=== PATIENT | male | born 1960 | race Native Hawaiian/Other Pacific Islander ===

== ENCOUNTER 2018-12-23 15:07 | Inpatient (IN) | payer MEDICARE, OTHER ==
--- NOTE | 2018-12-23 16:18 | ED ---
General Adult HPI - General Chief complaint: Dizziness Stated complaint: cirrhosis of the liver Time Seen by Provider: 12/23/18 15:54 Source: patient Mode of arrival: ambulatory Limitations: no limitations - History of Present Illness Initial comments: Dictation was produced using [employer] dictation software. please excuse any grammatical, word or spelling errors. Chief Complaint: 58-year-old male past medical history of cirrhotic liver presents with instruction from piece. [facility] emergency department for paracentesis History of Present Illness: Patient is a 58-year-old male. He went to his primary care physician's office today because he needed a referral to get into [facility] due to chronic debility. Patient has a history of cirrhosis. Patient has history of paracentesis in the past. He states one month ago he had got in paracentesis with removal of approximately 2 bottles of fluid. Patient states he is only gotten paracentesis once in the past. Patient also has a history of low hemoglobin. Over the past 2-3 days patient has been having dizziness and exertional dyspnea. Patient states he's having difficulty taking a deep breath secondary to his abdomen. Denies any constitutional symptoms. The ROS documented in this emergency department record has been reviewed and confirmed by me. Those systems with pertinent positive or negative responses have been documented in the HPI. All other systems are other negative and/or noncontributory. PHYSICAL EXAM: General Impression: Alert and oriented x3, not in acute distress HEENT: Normocephalic atraumatic, extra-ocular movements intact, pupils equal and reactive to light bilaterally, mucous membranes moist, poor dentition Cardiovascular: Heart regular rate and rhythm, S1&S2 audible, no murmurs, rubs or gallops Chest: Lungs clear to auscultation bilaterally, no rhonchi, no wheeze, no rales Abdomen: Distended abdomen, positive fluid wave, nontender Musculoskeletal: Pulses present and equal in all extremities, no peripheral edema Motor: no focal deficits noted Neurological: CN II-XII grossly intact, no focal motor or sensory deficits noted Skin: Intact with no visualized rashes Psych: Normal affect and mood ED course: 58-year-old male presents with ankle presentation consistent with abdominal ascites vital signs upon arrival are within acceptable limits.Laboratory evaluation obtained. CBC is grossly unremarkable. Values are expected in a cirrhotic patient. Coag panel is unremarkable. Metabolic panel is unremarkable. Chest x-ray obtained showing no acute processes. Patient's symptoms likely secondary to abdominal pressure from the ascitic fluid. Patient be admitted for paracentesis. Interventional radiology is consulted. Discussed patient case with Dr. Galindo who will be accepting the patient. - Related Data Home Medications Medication Instructions Recorded Confirmed Furosemide [Lasix] 40 mg PO BID 12/23/18 12/23/18 Pantoprazole Sodium [Protonix] 40 mg PO BID 12/23/18 12/23/18 Spironolactone [Aldactone] 100 mg PO DAILY 12/23/18 12/23/18 Thiamine HCl [Vitamin B-1] 100 mg PO DAILY 12/23/18 12/23/18 Allergies Allergy/AdvReac Type Severity Reaction Status Date / Time No Known Allergies Allergy Verified 12/23/18 16:09 Review of Systems ROS Statement: Those systems with pertinent positive or pertinent negative responses have been documented in the HPI. ROS Other: All systems not noted in ROS Statement are negative. Past Medical History Past Medical History: Hyperlipidemia, Hypertension Additional Past Medical History / Comment(s): cirrhosis History of Any Multi-Drug Resistant Organisms: None Reported Past Surgical History: No Surgical Hx Reported Past Psychological History: Anxiety, Bipolar, Depression, Schizophrenia Smoking Status: Current every day smoker Past Alcohol Use History: Rare Past Drug Use History: None Reported General Exam Limitations: no limitations Course Vital Signs 12/23/18 12/23/18 12/23/18 15:23 16: 16:30 Temperature 98.3 F Pulse Rate 95 122 H 95 Respiratory 22 22 18 Rate Blood Pressure 147/77 162/98 O2 Sat by Pulse 100 96 97 Oximetry Medical Decision Making - Lab Data Result diagrams: 12/23/18 16:33 12/23/18 16:33 Lab Results 12/23/18 12/23/18 12/23/18 Range/Units 16:33 16:33 16:33 WBC 3.2 L (3.8-10.6) k/uL RBC 4.66 (4.30-5.90) m/uL Hgb 11.3 L (13.0-17.5) gm/dL Hct 37.4 L (39.0-53.0) % MCV 80.1 (80.0-100.0) fL MCH 24.2 L (25.0-35.0) pg MCHC 30.2 L (31.0-37.0) g/dL RDW 17.3 H (11.5-15.5) % Plt Count 96 L (150-450) k/uL Neutrophils % 56 % Lymphocytes % 29 % Monocytes % 8 % Eosinophils % 2 % Basophils % 1 % Neutrophils # 1.8 (1.3-7.7) k/uL Lymphocytes # 0.9 L (1.0-4.8) k/uL Monocytes # 0.3 (0-1.0) k/uL Eosinophils # 0.1 (0-0.7) k/uL Basophils # 0.0 (0-0.2) k/uL Hypochromasia Marked Poikilocytosis Slight Anisocytosis Slight Microcytosis Slight PT 13.5 H (9.0-12.0) sec INR 1.3 H (<1.2) APTT 28.2 (22.0-30.0) sec Sodium 137 (137-145) mmol/L Potassium 3.6 (3.5-5.1) mmol/L Chloride 103 (98-107) mmol/L Carbon Dioxide 23 (22-30) mmol/L Anion Gap 11 mmol/L BUN 22 H (9-20) mg/dL Creatinine 0.80 (0.66-1.25) mg/dL Est GFR (CKD-EPI)AfAm >90 (>60 ml/min/1.73 sqM) Est GFR (CKD-EPI)NonAf >90 (>60 ml/min/1.73 sqM) Glucose 108 H (74-99) mg/dL Calcium 9.1 (8.4-10.2) mg/dL Total Bilirubin 2.4 H (0.2-1.3) mg/dL AST 56 (17-59) U/L ALT 43 (21-72) U/L Alkaline Phosphatase 137 H (38-126) U/L Troponin I (0.000-0.034) ng/mL NT-Pro-B Natriuret Pep pg/mL Total Protein 8.7 H (6.3-8.2) g/dL Albumin 3.8 (3.5-5.0) g/dL 12/23/18 12/23/18 Range/Units 16:33 16:33 WBC (3.8-10.6) k/uL RBC (4.30-5.90) m/uL Hgb (13.0-17.5) gm/dL Hct (39.0-53.0) % MCV (80.0-100.0) fL MCH (25.0-35.0) pg MCHC (31.0-37.0) g/dL RDW (11.5-15.5) % Plt Count (150-450) k/uL Neutrophils % % Lymphocytes % % Monocytes % % Eosinophils % % Basophils % % Neutrophils # (1.3-7.7) k/uL Lymphocytes # (1.0-4.8) k/uL Monocytes # (0-1.0) k/uL Eosinophils # (0-0.7) k/uL Basophils # (0-0.2) k/uL Hypochromasia Poikilocytosis Anisocytosis Microcytosis PT (9.0-12.0) sec INR (<1.2) APTT (22.0-30.0) sec Sodium (137-145) mmol/L Potassium (3.5-5.1) mmol/L Chloride (98-107) mmol/L Carbon Dioxide (22-30) mmol/L Anion Gap mmol/L BUN (9-20) mg/dL Creatinine (0.66-1.25) mg/dL Est GFR (CKD-EPI)AfAm (>60 ml/min/1.73 sqM) Est GFR (CKD-EPI)NonAf (>60 ml/min/1.73 sqM) Glucose (74-99) mg/dL Calcium (8.4-10.2) mg/dL Total Bilirubin (0.2-1.3) mg/dL AST (17-59) U/L ALT (21-72) U/L Alkaline Phosphatase (38-126) U/L Troponin I <0.012 (0.000-0.034) ng/mL NT-Pro-B Natriuret Pep 85 pg/mL Total Protein (6.3-8.2) g/dL Albumin (3.5-5.0) g/dL Disposition Clinical Impression: Ascites Disposition: ADMITTED IP TO THIS [facility] Condition: Fair Referrals: Jay Winn DO [Primary Care Provider] - 1-2 days Decision Time: 17:46
[2018-12-23 16:45] LABS: Anisocytosis Slight; Basophils % (A) 1 %; Eosinophils # (A) 0.1 k/uL (0-0.7); Eosinophils % (A) 2 %; HCT 37.4 % (39.0-53.0); HGB 11.3 gm/dL (13.0-17.5); Hypochromasia Marked; Lymphocytes # (A) 0.9 k/uL (1.0-4.8); Lymphocytes % (A) 29 %; MCH 24.2 pg (25.0-35.0); MCHC 30.2 g/dL (31.0-37.0); MCV 80.1 fL (80.0-100.0); Mean Platelet Volume 7.4; Microcytosis Slight; Monocytes # (A) 0.3 k/uL (0-1.0); Monocytes % (A) 8 %; Neutrophils # (A) 1.8 k/uL (1.3-7.7); Neutrophils % (A) 56 %; Poikilocytosis Slight; RBC 4.66 m/uL (4.30-5.90); RDW 17.3 % (11.5-15.5); WBC 3.2 k/uL (3.8-10.6)
[2018-12-23 16:47] LABS: Platelet Count 96 k/uL (150-450)
[2018-12-23 16:54] LABS: ALT 43 U/L (21-72); AST 56 U/L (17-59); Albumin 3.8 g/dL (3.5-5.0); Alkaline Phosphatase 137 U/L (38-126); Anion Gap 11 mmol/L; Blood Urea Nitrogen 22 mg/dL (9-20); Calcium 9.1 mg/dL (8.4-10.2); Carbon Dioxide 23 mmol/L (22-30); Chloride 103 mmol/L (98-107); Glucose 108 mg/dL (74-99); Potassium 3.6 mmol/L (3.5-5.1); Sodium 137 mmol/L (137-145); Total Bilirubin 2.4 mg/dL (0.2-1.3); Total Protein 8.7 g/dL (6.3-8.2)
[2018-12-23 17:01] LABS: INR 1.3 (<1.2); Partial Thromboplastin Time 28.2 sec (22.0-30.0); Prothrombin Time 13.5 sec (9.0-12.0)
--- NOTE | 2018-12-23 17:14 | XR ---
EXAMINATION TYPE: XR chest 2V DATE OF EXAM: 12/23/2018 COMPARISON: NONE HISTORY: Difficulty breathing TECHNIQUE: Frontal and lateral views of the chest are obtained. FINDINGS: Heart and mediastinum are normal. There is a small linear area of density at the right frieda g base. The other lung posadas are clear. There are chest leads. There is some apparent contrast in th e bowel in the upper abdomen. IMPRESSION: Normal heart. Small area of subsegmental atelectasis or scarring at the right lung base.
[2018-12-23] MEDS ORDERED: ACETAMINOPHEN TAB 325 MG TAB PO PRN (17:47)
[2018-12-23] MEDS ORDERED: NALOXONE 0.4 MG/ML 1 ML VIAL IV PRN (17:47)
[2018-12-23] MEDS ORDERED: traMADol 50 MG TAB PO PRN (18:21)
[2018-12-23] MEDS ORDERED: IPRATROPIUM-ALBUTEROL 3 ML NEB INHALATION PRN (18:24)
--- NOTE | 2018-12-23 18:27 | P.HPIM ---
History of Present Illness 58-year-old pleasant gentleman with known history of cirrhosis which was diagnosed a couple months ago came in with ascites and the abdominal discomfort from that decision denied any significant tenderness denied any fever chills pat ient does not appear to have any spontaneous bacterial peritonitis. Patient although is comparing of chills as been having some dizziness and some shortness of breath because of her abdominal distention patient has significantly distended abdomen which need therapeutic paracentesis. Patient will be admitted will be started on Lasix and the interventional radiology will be consulted for a therapeutic paracentesis. Patient used to smoke quite a bit does appear to have COPD minimal wheezing on exam patient has quit smoking as well lately occasionally takes 3 puffs and a cigarette and stops after that. Although used to smoke half a pack a day in the past Review of Systems REVIEW OF SYSTEMS: CONSTITUTIONAL: No fever, no malaise, no fatigue. HEENT: No recent visual problems or hearing problems. Denied any sore throat. CARDIOVASCULAR: No chest pain, orthopnea, PND, no palpitations, no syncope. PULMONARY: , no hemoptysis. GASTROINTESTINAL: No diarrhea, no nausea, no vomiting. NEUROLOGICAL: No headaches, no weakness, no numbness. HEMATOLOGICAL: Denies any bleeding or petechiae. GENITOURINARY: Denies any burning micturition, frequency, or urgency. MUSCULOSKELETAL/RHEUMATOLOGICAL: Denies any joint pain, swelling, or any muscle pain. ENDOCRINE: Denies any polyuria or polydipsia. The rest of the 14-point review of systems is negative. Past Medical History Past Medical History: Hyperlipidemia, Hypertension Additional Past Medical History / Comment(s): cirrhosis History of Any Multi-Drug Resistant Organisms: None Reported Past Surgical History: No Surgical Hx Reported Past Psychological History: Anxiety, Bipolar, Depression, Schizophrenia Smoking Status: Current every day smoker Past Alcohol Use History: Rare Past Drug Use History: None Reported Medications and Allergies Home Medications Medication Instructions Recorded Confirmed Type Furosemide [Lasix] 40 mg PO BID 12/23/18 12/23/18 History Pantoprazole Sodium [Protonix] 40 mg PO BID 12/23/18 12/23/18 History Spironolactone [Aldactone] 100 mg PO DAILY 12/23/18 12/23/18 History Thiamine HCl [Vitamin B-1] 100 mg PO DAILY 12/23/18 12/23/18 History Allergies Allergy/AdvReac Type Severity Reaction Status Date / Time No Known Allergies Allergy Verified 12/23/18 16:09 Physical Exam Vitals: Vital Signs Temp Pulse Resp BP Pulse Ox 12/23/18 18:00 98 16 160/97 98 12/23/18 17:00 99 16 151/99 99 12/23/18 16:30 95 18 162/98 97 12/23/18 16:19 122 H 22 96 12/23/18 15:23 98.3 F 95 22 147/77 100 Intake and Output 12/23/18 12/23/18 12/23/18 06:59 14:59 22:59 Other: Weight 86.183 kg PHYSICAL EXAMINATION: GENERAL: The patient is alert and oriented x3, not in any acute distress. HEENT: Pupils are round and equally reacting to light. EOMI. No scleral icterus. No conjunctival pallor. Normocephalic, atraumatic. No pharyngeal erythema. No thyromegaly. CARDIOVASCULAR: S1 and S2 present. No murmurs, rubs, or gallops. PULMONARY: Chest is clear to auscultation, no wheezing or crackles. ABDOMEN: Patient does have peripheral signs of cirrhosis no significant tenderness at abdomen is distended with the shifting dullness and fluid thrill MUSCULOSKELETAL: No joint swelling or deformity. EXTREMITIES: No cyanosis, clubbing, or pedal edema. NEUROLOGICAL: Gross neurological examination did not reveal any focal deficits. SKIN: No rashes. Results CBC & Chem 7: 12/23/18 16:33 12/23/18 16:33 Labs: Abnormal Lab Results - Last 24 Hours (Table) 12/23/18 12/23/18 12/23/18 Range/Units 16:33 16:33 16:33 WBC 3.2 L (3.8-10.6) k/uL Hgb 11.3 L (13.0-17.5) gm/dL Hct 37.4 L (39.0-53.0) % MCH 24.2 L (25.0-35.0) pg MCHC 30.2 L (31.0-37.0) g/dL RDW 17.3 H (11.5-15.5) % Plt Count 96 L (150-450) k/uL Lymphocytes # 0.9 L (1.0-4.8) k/uL PT 13.5 H (9.0-12.0) sec INR 1.3 H (<1.2) BUN 22 H (9-20) mg/dL Glucose 108 H (74-99) mg/dL Total Bilirubin 2.4 H (0.2-1.3) mg/dL Alkaline Phosphatase 137 H (38-126) U/L Total Protein 8.7 H (6.3-8.2) g/dL Assessment and Plan Plan: -Alcoholic Cirrhosis mild shortness of breath secondary to ascites: Patient will undergo ultrasound-guided paracentesis will obtain paracentesis labs to rule out spontaneous bacterial peritonitis although clinically does not appear to have any SBP at this time -Mild COPD with mildly exacerbation patient was started on relational treatments are do not believe patient will need any systemic steroids and nasal steroids at this time -Hyperlipidemia -Bipolar disorder -Depression -Nicotine abuse: Counseling was provided -DVT prophylaxis as subcutaneous heparin patient's INR is 1.3
[2018-12-23 19:34] VITALS: BMI 29.7
[2018-12-23] MEDS: FUROSEMIDE 10 MG/ML 4 ML VIAL IV SCH (21:29)
[2018-12-23] MEDS: HEPARIN SODIUM,PORCINE 5,000 UNIT/ML 1 ML VIAL SQ SCH (21:29)
[2018-12-24 08:16] LABS: Anisocytosis Slight; Hypochromasia Marked; MCH 24.5 pg (25.0-35.0); MCHC 30.7 g/dL (31.0-37.0); MCV 79.9 fL (80.0-100.0); Mean Platelet Volume 7.5; Microcytosis Slight; Poikilocytosis Slight; RBC 3.88 m/uL (4.30-5.90); WBC 2.7 k/uL (3.8-10.6)
[2018-12-24 08:25] LABS: Platelet Count 78 k/uL (150-450)
[2018-12-24 08:27] LABS: HGB 9.5 gm/dL (13.0-17.5)
[2018-12-24 08:34] LABS: ALT 34 U/L (21-72); AST 44 U/L (17-59); Albumin 2.7 g/dL (3.5-5.0); Alkaline Phosphatase 94 U/L (38-126); Anion Gap 5 mmol/L; Blood Urea Nitrogen 23 mg/dL (9-20); Calcium 8.2 mg/dL (8.4-10.2); Carbon Dioxide 28 mmol/L (22-30); Chloride 104 mmol/L (98-107); Glucose 98 mg/dL (74-99); Potassium 3.8 mmol/L (3.5-5.1); Sodium 137 mmol/L (137-145); Total Bilirubin 2.3 mg/dL (0.2-1.3); Total Protein 6.7 g/dL (6.3-8.2)
[2018-12-24] MEDS ORDERED: PANTOPRAZOLE 40 MG/10 ML VIAL IV SCH (09:00)
[2018-12-24] MEDS ORDERED: THIAMINE 100 MG TAB PO SCH (09:00)
[2018-12-24] MEDS: HEPARIN SODIUM,PORCINE 5,000 UNIT/ML 1 ML VIAL SQ SCH (09:24)
--- NOTE | 2018-12-24 09:26 | US ---
EXAMINATION TYPE: US abdomen limited DATE OF EXAM: 12/24/2018 COMPARISON: NONE CLINICAL HISTORY: Assess for fluid pocket please. Alcoholic cirrhosis per patient Ascites is seen in all four abdominal quadrants with largest measured pocket in LLQ = 11.9cm A/P. There is a cirrhotic morphology of the liver. IMPRESSION: Moderate abdominal ascites and cirrhotic morphology of liver.
[2018-12-24] MEDS: FUROSEMIDE 10 MG/ML 4 ML VIAL IV SCH (12:12)
[2018-12-24] MEDS: SPIRONOLACTONE 25 MG TAB PO SCH ×2 (12:12→12:21)
[2018-12-24 12:24] VITALS: BP 133/77; TEMP 98
[2018-12-24 14:21] VITALS: PULSE 84; RESP 18
--- NOTE | 2018-12-24 14:37 | P.PN ---
Subjective Patient is admitted with cirrhosis and significant ascites causing shortness of breath patient had removal of about 9 L of ascitic fluid. Patient is quite weak little "evaluated the patient. Patient presently is homeless her sister has to be in the hospital because of her sick . Social work and family service caseworker will work on his disposition her is medically patient is stable enough to be discharged. Patient will be switched to oral Lasix. We will monitor him while he is here. Patient doesn't appear to have spontaneous bacterial peritonitis clinically will await therapeutic toenail fluid labs. Constitutional: Denied any fatigue denied any fever. Cardio vascular: denied any chest pain, palpitations Gastrointestinal denied any nausea vomiting Pulmonary: Denied any shortness of breath cough Neurologic denied any new focal deficits All inpatient medications were reviewed and appropriate changes in these medications as dictated in the interval history and assessment and plan. Objective - Vital Signs Vital signs: Vital Signs Temp 98 F 12/24/18 12:24 Pulse 84 12/24/18 14:09 Resp 18 12/24/18 14:09 BP 133/77 12/24/18 12:24 Pulse Ox 97 12/24/18 12:24 Intake & Output 12/23/18 12/24/18 12/24/18 18:59 06:59 18:59 Intake Total 250 500 Balance 250 500 Weight 86.183 kg 79.5 kg Intake: Oral 250 500 Other: Voiding Method Toilet Toilet # Voids 1 3 - Exam PHYSICAL EXAMINATION: GENERAL: The patient is alert and oriented x3, not in any acute distress. HEENT: Pupils are round and equally reacting to light. EOMI. No scleral icterus. No conjunctival pallor. Normocephalic, atraumatic. No pharyngeal erythema. No thyromegaly. CARDIOVASCULAR: S1 and S2 present. No murmurs, rubs, or gallops. PULMONARY: Chest is clear to auscultation, no wheezing or crackles. ABDOMEN: Patient does have peripheral signs of cirrhosis no significant tenderness at abdomen is distended improved, shifting dullness not appreciable MUSCULOSKELETAL: No joint swelling or deformity. EXTREMITIES: No cyanosis, clubbing, or pedal edema. NEUROLOGICAL: Gross neurological examination did not reveal any focal deficits. SKIN: No rashes. - Labs CBC & Chem 7: 12/24/18 07:10 12/24/18 07:10 Labs: Abnormal Lab Results - Last 24 Hours (Table) 12/23/18 12/23/18 12/23/18 Range/Units 16:33 16:33 16:33 WBC 3.2 L (3.8-10.6) k/uL RBC (4.30-5.90) m/uL Hgb 11.3 L (13.0-17.5) gm/dL Hct 37.4 L (39.0-53.0) % MCV (80.0-100.0) fL MCH 24.2 L (25.0-35.0) pg MCHC 30.2 L (31.0-37.0) g/dL RDW 17.3 H (11.5-15.5) % Plt Count 96 L (150-450) k/uL Lymphocytes # 0.9 L (1.0-4.8) k/uL PT 13.5 H (9.0-12.0) sec INR 1.3 H (<1.2) BUN 22 H (9-20) mg/dL Glucose 108 H (74-99) mg/dL Calcium (8.4-10.2) mg/dL Total Bilirubin 2.4 H (0.2-1.3) mg/dL Alkaline Phosphatase 137 H (38-126) U/L Total Protein 8.7 H (6.3-8.2) g/dL Albumin (3.5-5.0) g/dL 12/24/18 12/24/18 Range/Units 07:10 07:10 WBC 2.7 L (3.8-10.6) k/uL RBC 3.88 L (4.30-5.90) m/uL Hgb 9.5 L D (13.0-17.5) gm/dL Hct 31.0 L (39.0-53.0) % MCV 79.9 L (80.0-100.0) fL MCH 24.5 L (25.0-35.0) pg MCHC 30.7 L (31.0-37.0) g/dL RDW 17.0 H (11.5-15.5) % Plt Count 78 L (150-450) k/uL Lymphocytes # (1.0-4.8) k/uL PT (9.0-12.0) sec INR (<1.2) BUN 23 H (9-20) mg/dL Glucose (74-99) mg/dL Calcium 8.2 L (8.4-10.2) mg/dL Total Bilirubin 2.3 H (0.2-1.3) mg/dL Alkaline Phosphatase (38-126) U/L Total Protein (6.3-8.2) g/dL Albumin 2.7 L (3.5-5.0) g/dL Assessment and Plan Plan: -Alcoholic Cirrhosis mild shortness of breath secondary to ascites: Patient underwent the line liters fluid removal via ultrasound-guided paracentesis. No evidence of spontaneous bacterial peritonitis at this time -Mild COPD with mildly exacerbation patient was started on relational treatments are do not believe patient will need any systemic steroids and nasal steroids at this time -Hyperlipidemia -Bipolar disorder -Depression -Nicotine abuse: Counseling was provided -DVT prophylaxis as subcutaneous heparin patient's INR is 1.3 -Generalized deconditioning PT and OT evaluation and social work evaluation for above-mentioned reasons
--- NOTE | 2018-12-24 14:59 | US ---
EXAMINATION TYPE: US paracentesis abd w/image DATE OF EXAM: 12/24/2018 COMPARISON: NONE HISTORY: Ascites. PROCEDURE: Maximal barrier technique was utilized. The skin overlying a suitable pocket of fluid was localized with ultrasound and the overlying skin was prepped and draped. Ultrasound was utilized with sterile technique. Lidocaine was used for local anesthesia and a skin kassy made with a scalpel. Catheter was advanced under direct ultrasound guidance into a suitable pocket of fluid and approximately 9.1 liter s of serous fluid were removed. Catheter was withdrawn and hemostasis achieved. There is no immedia te complication; the patient is discharged in stable condition. IMPRESSION: STATUS POST ULTRASOUND GUIDED PARACENTESIS FOR PALLIATION OF ASCITES. THIS PROCEDURE WA S PERFORMED BY THE UNDERSIGNED. Specimen sent for laboratory analysis.
[2018-12-24 17:59] LABS: Appearance,BF Hazy; Color,BF Yellow; Nucleated Cells, Body Fluid 64 /uL; RBC, Body Fluid 208 /uL
[2018-12-24 18:01] LABS: Mononuclear WBC,Body Fluid 93 %; Polynuclear WBC,Body Fluid 7 %; Total Cells Counted,Body Fluid 100
[2018-12-24 20:26] LABS: Total Protein, Body Fluid 1030 mg/dL
[2018-12-25] MEDS ORDERED: FUROSEMIDE 40 MG TAB PO SCH (09:00)
--- NOTE | 2018-12-29 14:25 | P.DS ---
Providers Date of admission: 12/23/18 17:47 Attending physician: Carlotta Galindo Primary care physician: Jay Winn DO Hospital Course: Please refer to my progress note for further details of discharge Patient Condition at Discharge: Fair Plan - Discharge Summary Discharge Rx Participant: Yes New Discharge Prescriptions: New Albuterol Inhaler [Ventolin Hfa Inhaler] 1 - 2 puff INHALATION Q6HR PRN #1 inhaler PRN Reason: Shortness Of Breath Or Wheezing Continue Thiamine HCl [Vitamin B-1] 100 mg PO DAILY Spironolactone [Aldactone] 100 mg PO DAILY Pantoprazole Sodium [Protonix] 40 mg PO BID Furosemide [Lasix] 40 mg PO BID No Action Meclizine [Antivert] 25 mg PO TID PRN #15 tab PRN Reason: Vertigo Discharge Medication List Furosemide [Lasix] 40 mg PO BID 12/23/18 [History] Pantoprazole Sodium [Protonix] 40 mg PO BID 12/23/18 [History] Spironolactone [Aldactone] 100 mg PO DAILY 12/23/18 [History] Thiamine HCl [Vitamin B-1] 100 mg PO DAILY 12/23/18 [History] Albuterol Inhaler [Ventolin Hfa Inhaler] 1 - 2 puff INHALATION Q6HR PRN #1 inhaler 12/24/18 [Rx] Meclizine [Antivert] 25 mg PO TID PRN #15 tab 12/25/18 [Rx] Follow up Appointment(s)/Referral(s): Jay Winn DO [Primary Care Provider] - 3 Days Dany Elizabeth MD [STAFF PHYSICIAN] - 1 Week Discharge Disposition: HOME SELF-CARE
== END 2018-12-24 16:10 | disposition home or self-care (01) | DRG 433 ==
LOC: EC 15:07 → 3NMEDONC 17:47
PROVIDERS: ADMIT Internal Medicine; ATTEND Internal Medicine
PROC: 0W9G3ZZ Drainage of Peritoneal Cavity, Percutaneous Approach (ICD-10-PCS; principal; 2018-12-24)
DX: K70.31 Alcoholic cirrhosis of liver with ascites (principal); D61.818 Other pancytopenia; J44.1 Chronic obstructive pulmonary disease with (acute) exacerbation; E78.5 Hyperlipidemia, unspecified; F17.200 Nicotine dependence, unspecified, uncomplicated; F20.9 Schizophrenia, unspecified; F31.9 Bipolar disorder, unspecified; F41.9 Anxiety disorder, unspecified; I10 Essential (primary) hypertension; Z59.0 Homelessness; Z79.899 Other long term (current) drug therapy; Z71.6 Tobacco abuse counseling
CPT/HCPCS: 36415; 49083; 71046; 76705; 80053; 82945; 83615; 83735; 83880; 84157; 84484; 85025; 85027; 85610; 85730; 87070; 87075; 87205; 88108; 88305; 89050; 93005; 99285

== ENCOUNTER 2018-12-25 09:55 | Emergency (ER) | payer MEDICARE, OTHER ==
[2018-12-25 10:04] VITALS: RESP 16; TEMP 97.2
[2018-12-25 10:18] VITALS: PULSE 86
[2018-12-25] MEDS ORDERED: MECLIZINE 12.5 MG TAB PO STA (10:33)
[2018-12-25] MEDS ORDERED: SODIUM CHLORIDE 0.9% 1,000 ML IV STA (10:33)
[2018-12-25 10:55] LABS: Anisocytosis Slight; Basophils % (A) 1 %; Eosinophils % (A) 2 %; HCT 31.7 % (39.0-53.0); HGB 9.6 gm/dL (13.0-17.5); Hypochromasia Marked; Lymphocytes # (A) 0.6 k/uL (1.0-4.8); Lymphocytes % (A) 24 %; MCH 23.9 pg (25.0-35.0); MCHC 30.2 g/dL (31.0-37.0); MCV 79.3 fL (80.0-100.0); Mean Platelet Volume 8.8; Microcytosis Slight; Monocytes # (A) 0.2 k/uL (0-1.0); Monocytes % (A) 9 %; Neutrophils # (A) 1.4 k/uL (1.3-7.7); Neutrophils % (A) 62 %; Poikilocytosis Slight; RDW 16.9 % (11.5-15.5); WBC 2.3 k/uL (3.8-10.6)
[2018-12-25 11:00] LABS: ALT 38 U/L (21-72); AST 62 U/L (17-59); Alkaline Phosphatase 122 U/L (38-126); Anion Gap 9 mmol/L; Blood Urea Nitrogen 26 mg/dL (9-20); Calcium 8.2 mg/dL (8.4-10.2); Carbon Dioxide 25 mmol/L (22-30); Chloride 102 mmol/L (98-107); Glucose 136 mg/dL (74-99); Sodium 136 mmol/L (137-145); Total Bilirubin 1.7 mg/dL (0.2-1.3); Total Protein 7.4 g/dL (6.3-8.2)
[2018-12-25 11:01] LABS: Potassium 4.4 mmol/L (3.5-5.1)
[2018-12-25 11:12] LABS: Platelet Count 91 k/uL (150-450)
--- NOTE | 2018-12-25 11:20 | ED ---
Dizziness HPI - General Chief Complaint: Dizziness Stated Complaint: Dizzy, nausea Time Seen by Provider: 12/25/18 10:33 Source: patient, EMS, RN notes reviewed Mode of arrival: EMS Limitations: no limitations - History of Present Illness Initial Comments: 58-year-old male presents emergency Department chief complaint of dizziness. Patient states his symptoms started this morning. Patient has a history of this related to his liver cirrhosis. Patient had a recent paracentesis for his ascites. Patient was discharged from the hospital yesterday. Patient reports no chest pain or shortness breath no headache no blurred vision no focal weakness. Patient did have slight nausea but that has resolved. Patient was given Zofran by EMS. Patient denies any focal weakness denies any increase abdominal swelling denies blurred vision. Patient states symptoms are exacerbated by movement better at rest. - Related Data Home Medications Medication Instructions Recorded Confirmed Furosemide [Lasix] 40 mg PO BID 12/23/18 12/23/18 Pantoprazole Sodium [Protonix] 40 mg PO BID 12/23/18 12/23/18 Spironolactone [Aldactone] 100 mg PO DAILY 12/23/18 12/23/18 Thiamine HCl [Vitamin B-1] 100 mg PO DAILY 12/23/18 12/23/18 Previous Rx's Medication Instructions Recorded Albuterol Inhaler [Ventolin Hfa 1 - 2 puff INHALATION Q6HR PRN #1 12/24/18 Inhaler] inhaler Meclizine [Antivert] 25 mg PO TID PRN #15 tab 12/25/18 Allergies Allergy/AdvReac Type Severity Reaction Status Date / Time No Known Allergies Allergy Verified 12/23/18 16:09 Review of Systems ROS Statement: Those systems with pertinent positive or pertinent negative responses have been documented in the HPI. ROS Other: All systems not noted in ROS Statement are negative. Past Medical History Past Medical History: Hyperlipidemia, Hypertension Additional Past Medical History / Comment(s): cirrhosis GI Bleed History of Any Multi-Drug Resistant Organisms: None Reported Past Surgical History: No Surgical Hx Reported Additional Past Surgical History / Comment(s): paracentesis 1 month ago over 2 liters taken off Past Anesthesia/Blood Transfusion Reactions: No Reported Reaction Past Psychological History: Anxiety, Bipolar, Depression, Schizophrenia Smoking Status: Current every day smoker Past Alcohol Use History: Rare Past Drug Use History: None Reported - Past Family History Mother Family Medical History: Congestive Heart Failure (CHF), Myocardial Infarction (PA) Father Family Medical History: Diabetes Mellitus General Exam Limitations: no limitations General appearance: alert, in no apparent distress Head exam: Present: atraumatic, normocephalic, normal inspection Eye exam: Present: normal appearance, PERRL, EOMI. Absent: scleral icterus, conjunctival injection, periorbital swelling ENT exam: Present: normal exam, mucous membranes moist Neck exam: Present: normal inspection. Absent: tenderness, meningismus, lymphadenopathy Respiratory exam: Present: wheezes. Absent: normal lung sounds bilaterally, respiratory distress, rales, rhonchi, stridor Cardiovascular Exam: Present: regular rate, normal rhythm, normal heart sounds. Absent: systolic murmur, diastolic murmur, rubs, gallop, clicks GI/Abdominal exam: Present: soft, normal bowel sounds. Absent: distended, tenderness, guarding, rebound, rigid Neurological exam: Present: alert, oriented X3, CN II-XII intact, reflexes normal, other (Finger to nose intact bilaterally without over shooting). Absent: motor sensory deficit Course Vital Signs 12/25/18 12/25/18 12/25/18 09:56 10:17 11:29 Temperature 97.2 F L Pulse Rate 87 86 86 Respiratory 16 16 Rate Blood Pressure 157/85 145/90 136/86 O2 Sat by Pulse 100 100 100 Oximetry EKG Findings - EKG Comments: EKG Findings:: EKG on a 10:03 normal sinus rhythm with a prolonged QT rate of 88 ND 136 QS 110 QT/QTC 418/505 Medical Decision Making - Medical Decision Making 58-year-old male presented for dizziness. Symptoms are consistent with vertigo. There is no ataxia no focal deficit. Patient's improved after Antivert. Patient's had ongoing issues related to his cirrhosis. Patient will be discharged on Antivert. Return parameters were discussed. - Lab Data Result diagrams: 12/25/18 10:08 12/25/18 10:08 Lab Results 12/25/18 12/25/18 12/25/18 Range/Units 10:08 10:08 10:08 WBC 2.3 L (3.8-10.6) k/uL RBC 4.00 L (4.30-5.90) m/uL Hgb 9.6 L (13.0-17.5) gm/dL Hct 31.7 L (39.0-53.0) % MCV 79.3 L (80.0-100.0) fL MCH 23.9 L (25.0-35.0) pg MCHC 30.2 L (31.0-37.0) g/dL RDW 16.9 H (11.5-15.5) % Plt Count 91 L (150-450) k/uL Neutrophils % 62 % Lymphocytes % 24 % Monocytes % 9 % Eosinophils % 2 % Basophils % 1 % Neutrophils # 1.4 (1.3-7.7) k/uL Lymphocytes # 0.6 L (1.0-4.8) k/uL Monocytes # 0.2 (0-1.0) k/uL Eosinophils # 0.0 (0-0.7) k/uL Basophils # 0.0 (0-0.2) k/uL Hypochromasia Marked Poikilocytosis Slight Anisocytosis Slight Microcytosis Slight Sodium 136 L (137-145) mmol/L Potassium 4.4 (3.5-5.1) mmol/L Chloride 102 (98-107) mmol/L Carbon Dioxide 25 (22-30) mmol/L Anion Gap 9 mmol/L BUN 26 H (9-20) mg/dL Creatinine 0.75 (0.66-1.25) mg/dL Est GFR (CKD-EPI)AfAm >90 (>60 ml/min/1.73 sqM) Est GFR (CKD-EPI)NonAf >90 (>60 ml/min/1.73 sqM) Glucose 136 H (74-99) mg/dL Calcium 8.2 L (8.4-10.2) mg/dL Total Bilirubin 1.7 H (0.2-1.3) mg/dL AST 62 H (17-59) U/L ALT 38 (21-72) U/L Alkaline Phosphatase 122 (38-126) U/L Troponin I <0.012 (0.000-0.034) ng/mL Total Protein 7.4 (6.3-8.2) g/dL Albumin 3.0 L (3.5-5.0) g/dL Disposition Clinical Impression: Vertigo Disposition: HOME SELF-CARE Condition: Stable Instructions (If sedation given, give patient instructions): Dizziness (ED) Additional Instructions: Please return to the Emergency Department if symptoms worsen or any other concerns. Prescriptions: Meclizine [Antivert] 25 mg PO TID PRN #15 tab PRN Reason: Vertigo Is patient prescribed a controlled substance at d/c from ED?: No Referrals: Jay Winn DO [Primary Care Provider] - 1-2 days Time of Disposition: 12:55
--- NOTE | 2018-12-25 11:27 | XR ---
EXAMINATION TYPE: XR chest 2V DATE OF EXAM: 12/25/2018 COMPARISON: Prior chest x-ray 12/23/2018 HISTORY: Cough TECHNIQUE: Frontal and lateral views of the chest are obtained. FINDINGS: There is no focal air space opacity, pleural effusion, or pneumothorax seen. The cardiac silhouette size is within normal limits. Postprocedural changes are noted in the left upper quadrant. There are overlying cardiac leads. Old left clavicular fracture is healed as on prior. Question some prominence of the pulmonary artery, consider pulmonary artery hypertension. The osseous structures are intact. IMPRESSION: No acute cardiopulmonary process. Additional findings above.
[2018-12-25 11:33] VITALS: BP 136/86
== END 2018-12-25 13:09 | disposition home or self-care (01) ==
LOC: EC 09:55
DX: R42 Dizziness and giddiness (principal); E78.5 Hyperlipidemia, unspecified; I10 Essential (primary) hypertension; F31.9 Bipolar disorder, unspecified; F20.9 Schizophrenia, unspecified; F41.9 Anxiety disorder, unspecified; F17.200 Nicotine dependence, unspecified, uncomplicated; Z79.899 Other long term (current) drug therapy
CPT/HCPCS: 36415; 71046; 80053; 84484; 85025; 93005; 96360; 96361; 99284

== ENCOUNTER 2019-01-19 16:26 | Observation (INO) | payer MEDICARE, OTHER ==
[2019-01-19] MEDS ORDERED: MORPHINE SULFATE 4 MG/ML SYRINGE IV STA (16:39)
--- NOTE | 2019-01-19 16:41 | ED ---
Abdominal Pain HPI - General Chief Complaint: Abdominal Pain Stated Complaint: abdominal distension Time Seen by Provider: 01/19/19 16:37 Source: patient, EMS, RN notes reviewed, old records reviewed Mode of arrival: EMS Limitations: no limitations - History of Present Illness Initial Comments: This is a 50-year-old male the ER for evaluation presented today for evaluation of severe abdominal pain or ecchymosis weakness. Not feeling well. Unable to take deep breath secondary abdomen. No fevers. No nausea vomiting or diarrhea. No travel history or sick contacts MD Complaint: abdominal pain -: week(s) Location: diffuse, periumbilical, epigastric Radiation: epigastric Migration to: no migration Severity: moderate Severity scale (1-10): 5 Quality: cramping, stabbing, fullness Consistency: constant Improves With: nothing Worsens With: nothing Associated Symptoms: nausea, constipation - Related Data Home Medications Medication Instructions Recorded Confirmed Albuterol Inhaler [Ventolin Hfa 2 puff INHALATION RT-Q6H PRN 01/19/19 01/19/19 Inhaler] Allergies Allergy/AdvReac Type Severity Reaction Status Date / Time No Known Allergies Allergy Verified 01/19/19 16:40 Review of Systems ROS Statement: Those systems with pertinent positive or pertinent negative responses have been documented in the HPI. ROS Other: All systems not noted in ROS Statement are negative. Past Medical History Past Medical History: Hyperlipidemia, Hypertension Additional Past Medical History / Comment(s): cirrhosis GI Bleed History of Any Multi-Drug Resistant Organisms: None Reported Past Surgical History: No Surgical Hx Reported Additional Past Surgical History / Comment(s): paracentesis 1 month ago over 2 liters taken off Past Anesthesia/Blood Transfusion Reactions: No Reported Reaction Past Psychological History: Anxiety, Bipolar, Depression, Schizophrenia Smoking Status: Current every day smoker Past Alcohol Use History: Rare Past Drug Use History: None Reported - Past Family History Mother Family Medical History: Congestive Heart Failure (CHF), Myocardial Infarction ([place]) Father Family Medical History: Diabetes Mellitus General Exam Limitations: no limitations General appearance: alert, in no apparent distress Head exam: Present: atraumatic, normocephalic, normal inspection Eye exam: Present: normal appearance, PERRL, EOMI. Absent: scleral icterus, conjunctival injection, periorbital swelling ENT exam: Present: normal exam, mucous membranes moist Neck exam: Present: normal inspection. Absent: tenderness, meningismus, lymphadenopathy Respiratory exam: Present: normal lung sounds bilaterally. Absent: respiratory distress, wheezes, rales, rhonchi, stridor Cardiovascular Exam: Present: regular rate, normal rhythm, normal heart sounds. Absent: systolic murmur, diastolic murmur, rubs, gallop, clicks GI/Abdominal exam: Present: distended, tenderness, normal bowel sounds, other (Ascites). Absent: guarding, rebound, rigid Extremities exam: Present: normal inspection, full ROM, normal capillary refill. Absent: tenderness, pedal edema, joint swelling, calf tenderness Back exam: Present: normal inspection Neurological exam: Present: alert, oriented X3, CN II-XII intact Psychiatric exam: Present: normal affect, normal mood Skin exam: Present: warm, dry, intact, normal color. Absent: rash Course Vital Signs 01/19/19 01/19/19 01/19/19 16:29 17:22 17:30 Temperature 98.1 F Pulse Rate 97 96 Respiratory 20 20 20 Rate Blood Pressure 143/108 143/105 O2 Sat by Pulse 100 99 Oximetry 01/19/19 18:25 Temperature Pulse Rate 98 Respiratory 20 Rate Blood Pressure 151/101 O2 Sat by Pulse 98 Oximetry - Reevaluation(s) Reevaluation #1: 01/19/19 18:53 Medical record reviewed Reevaluation #2: 01/19/19 18:53 Patient's medical current pain control. Medical Decision Making - Medical Decision Making 58 male presenting with abdominal distention severe ascites cirrhosis, patient will be admitted for drainage of ascites and pain control. Mild pancreatitis and by mouth and IV hydration - Lab Data Result diagrams: 01/19/19 16:37 01/19/19 16:37 Lab Results 01/19/19 01/19/19 01/19/19 Range/Units 16:37 16:37 16:37 WBC 3.1 L (3.8-10.6) k/uL RBC 4.47 (4.30-5.90) m/uL Hgb 10.1 L (13.0-17.5) gm/dL Hct 33.8 L (39.0-53.0) % MCV 75.7 L (80.0-100.0) fL MCH 22.5 L (25.0-35.0) pg MCHC 29.8 L (31.0-37.0) g/dL RDW 19.3 H (11.5-15.5) % Plt Count 102 L (150-450) k/uL Neutrophils % 61 % Lymphocytes % 22 % Monocytes % 8 % Eosinophils % 4 % Basophils % 1 % Neutrophils # 1.9 (1.3-7.7) k/uL Lymphocytes # 0.7 L (1.0-4.8) k/uL Monocytes # 0.2 (0-1.0) k/uL Eosinophils # 0.1 (0-0.7) k/uL Basophils # 0.0 (0-0.2) k/uL Hypochromasia Moderate Anisocytosis Slight Microcytosis Moderate PT 13.4 H (9.0-12.0) sec INR 1.3 H (<1.2) APTT 27.8 (22.0-30.0) sec Sodium 133 L (137-145) mmol/L Potassium 4.4 (3.5-5.1) mmol/L Chloride 104 (98-107) mmol/L Carbon Dioxide 24 (22-30) mmol/L Anion Gap 5 mmol/L BUN 21 H (9-20) mg/dL Creatinine 0.62 L (0.66-1.25) mg/dL Est GFR (CKD-EPI)AfAm >90 (>60 ml/min/1.73 sqM) Est GFR (CKD-EPI)NonAf >90 (>60 ml/min/1.73 sqM) Glucose 95 (74-99) mg/dL Calcium 8.3 L (8.4-10.2) mg/dL Total Bilirubin 1.4 H (0.2-1.3) mg/dL AST 56 (17-59) U/L ALT 31 (21-72) U/L Alkaline Phosphatase 118 (38-126) U/L Ammonia (<30) umol/L Creatine Kinase 62 (55-170) U/L Total Protein 7.3 (6.3-8.2) g/dL Albumin 3.2 L (3.5-5.0) g/dL Amylase 59 (30-110) U/L Lipase 362 H (23-300) U/L 01/19/19 Range/Units 16:37 WBC (3.8-10.6) k/uL RBC (4.30-5.90) m/uL Hgb (13.0-17.5) gm/dL Hct (39.0-53.0) % MCV (80.0-100.0) fL MCH (25.0-35.0) pg MCHC (31.0-37.0) g/dL RDW (11.5-15.5) % Plt Count (150-450) k/uL Neutrophils % % Lymphocytes % % Monocytes % % Eosinophils % % Basophils % % Neutrophils # (1.3-7.7) k/uL Lymphocytes # (1.0-4.8) k/uL Monocytes # (0-1.0) k/uL Eosinophils # (0-0.7) k/uL Basophils # (0-0.2) k/uL Hypochromasia Anisocytosis Microcytosis PT (9.0-12.0) sec INR (<1.2) APTT (22.0-30.0) sec Sodium (137-145) mmol/L Potassium (3.5-5.1) mmol/L Chloride (98-107) mmol/L Carbon Dioxide (22-30) mmol/L Anion Gap mmol/L BUN (9-20) mg/dL Creatinine (0.66-1.25) mg/dL Est GFR (CKD-EPI)AfAm (>60 ml/min/1.73 sqM) Est GFR (CKD-EPI)NonAf (>60 ml/min/1.73 sqM) Glucose (74-99) mg/dL Calcium (8.4-10.2) mg/dL Total Bilirubin (0.2-1.3) mg/dL AST (17-59) U/L ALT (21-72) U/L Alkaline Phosphatase (38-126) U/L Ammonia 13 (<30) umol/L Creatine Kinase (55-170) U/L Total Protein (6.3-8.2) g/dL Albumin (3.5-5.0) g/dL Amylase (30-110) U/L Lipase (23-300) U/L - Radiology Data Radiology results: report reviewed (X-ray abdominal series for chest x-rays negative for acute disease), image reviewed Disposition Clinical Impression: Ascites, Abdominal pain, Pancreatitis Disposition: ADMITTED IP TO THIS [facility] Condition: Fair Is patient prescribed a controlled substance at d/c from ED?: No
[2019-01-19 17:02] LABS: ALT 31 U/L (21-72); AST 56 U/L (17-59); Albumin 3.2 g/dL (3.5-5.0); Alkaline Phosphatase 118 U/L (38-126); Amylase 59 U/L (30-110); Anion Gap 5 mmol/L; Anisocytosis Slight; Basophils % (A) 1 %; Blood Urea Nitrogen 21 mg/dL (9-20); Calcium 8.3 mg/dL (8.4-10.2); Carbon Dioxide 24 mmol/L (22-30); Chloride 104 mmol/L (98-107); Creatine Kinase 62 U/L (55-170); Eosinophils # (A) 0.1 k/uL (0-0.7); Eosinophils % (A) 4 %; Glucose 95 mg/dL (74-99); HCT 33.8 % (39.0-53.0); HGB 10.1 gm/dL (13.0-17.5); Hypochromasia Moderate; Lipase 362 U/L (23-300); Lymphocytes # (A) 0.7 k/uL (1.0-4.8); Lymphocytes % (A) 22 %; MCH 22.5 pg (25.0-35.0); MCHC 29.8 g/dL (31.0-37.0); MCV 75.7 fL (80.0-100.0); Microcytosis Moderate; Monocytes # (A) 0.2 k/uL (0-1.0); Monocytes % (A) 8 %; Neutrophils # (A) 1.9 k/uL (1.3-7.7); Neutrophils % (A) 61 %; Platelet Count 102 k/uL (150-450); Potassium 4.4 mmol/L (3.5-5.1); RBC 4.47 m/uL (4.30-5.90); RDW 19.3 % (11.5-15.5); Sodium 133 mmol/L (137-145); Total Bilirubin 1.4 mg/dL (0.2-1.3); Total Protein 7.3 g/dL (6.3-8.2); WBC 3.1 k/uL (3.8-10.6)
[2019-01-19 17:10] LABS: INR 1.3 (<1.2); Partial Thromboplastin Time 27.8 sec (22.0-30.0); Prothrombin Time 13.4 sec (9.0-12.0)
--- NOTE | 2019-01-19 17:43 | XR ---
EXAMINATION TYPE: XR abdomen acute w cxr DATE OF EXAM: 01/19/2019 COMPARISON: NONE HISTORY: Short of breath TECHNIQUE: Chest x-ray with supine and upright abdomen. FINDINGS: There is no heart failure nor confluent pneumonic infiltrate. Heart size is normal. There is increased density over the abdomen and could relate to ascites. I see no evidence of a bowel obstruction. There is old left healed clavicle fracture. There is no sign of pneumoperitoneum. There are no pathologic calcifications over the kidneys. IMPRESSION: No active cardiopulmonary disease. Inspiration decreased slightly compared to last exam. Abdominal as cites.
[2019-01-19] MEDS ORDERED: SODIUM CHLORIDE 0.9% 1,000 ML IV ONE (17:49)
[2019-01-20] MEDS: MORPHINE SULFATE 4 MG/ML SYRINGE IVP PRN ×2 (03:35→15:40)
--- NOTE | 2019-01-20 15:49 | P.HPIM ---
History of Present Illness this is a pleasant 58 years old male with past medical history of liver cirrhosis, ascites needing paracentesis, hyperlipidemia and hypertension. This time patient presents with similar abdominal distention. Patient follow up with personal banking representative in [place]. The presents with significant abdominal distention with breathing difficulty however his breathing is not labored has some dry cough but no phlegm. No chest pain. No abdominal pain. No abdominal tenderness. No change in urine or bowel habits. vitals are stable. Labs shows WBC of 3.1K, hemoglobin 10.1, platelet count 1 or 2. INR 1.3. Sodium 133. Creatinine 0.6. Bilirubin is 1.4. Liver enzymes elevated. Lipase 362, amylase 59. Ammonia 13. Abdominal series x-ray showing no active cardiopulmonary disease and abdominal ascites as per radiologist's r eport patient states that he does not take medications at home. He smokes about 1 pack per day. He denies alcohol or ILLICIT tracts. Patient was counseled about quitting smoking. He does not want nicotine patch patient is going for paracentesis tomorrow pcid Prognosis is guarded Review of Systems CONSTITUTIONAL: No fever, no malaise, no fatigue. HEENT: No recent visual problems or hearing problems. Denied any sore throat. CARDIOVASCULAR: No orthopnea, PND, no palpitations, no syncope. PULMONARY: No shortness of breath, no cough, no hemoptysis. GASTROINTESTINAL: No diarrhea, no nausea, no vomiting, no abdominal pain. Normoactive bowel sounds. NEUROLOGICAL: No headaches, no weakness, no numbness. HEMATOLOGICAL: Denies any bleeding or petechiae. GENITOURINARY: Denies any burning micturition, frequency, or urgency. MUSCULOSKELETAL/RHEUMATOLOGICAL: Denies any joint pain, swelling, or any muscle pain. ENDOCRINE: Denies any polyuria or polydipsia. Past Medical History Past Medical History: Hyperlipidemia, Hypertension Additional Past Medical History / Comment(s): cirrhosis GI Bleed History of Any Multi-Drug Resistant Organisms: None Reported Past Surgical History: No Surgical Hx Reported Additional Past Surgical History / Comment(s): paracentesis 1 month ago over 2 liters taken off Past Anesthesia/Blood Transfusion Reactions: No Reported Reaction Past Psychological History: Anxiety, Bipolar, Depression, Schizophrenia Smoking Status: Current every day smoker Past Alcohol Use History: Rare Past Drug Use History: None Reported Additional Drug Use History / Comment(s): smokes half a pack a day, quit drinking in september was drinking 10 cans of beer a day - Past Family History Mother Family Medical History: Congestive Heart Failure (CHF), Myocardial Infarction ([place]) Father Family Medical History: Diabetes Mellitus Medications and Allergies Home Medications Medication Instructions Recorded Confirmed Type Albuterol Inhaler [Ventolin Hfa 2 puff INHALATION RT-Q6H PRN 01/19/19 01/20/19 History Inhaler] Allergies Allergy/AdvReac Type Severity Reaction Status Date / Time No Known Allergies Allergy Verified 01/20/19 03:09 Physical Exam Vitals: Vital Signs Temp Pulse Pulse Resp BP BP Pulse Ox 01/20/19 11:42 98.2 F 94 16 137/84 99 01/20/19 07:41 97.9 F 91 16 147/78 99 01/20/19 03:29 18 01/20/19 03:27 98.4 F 92 18 145/88 99 01/20/19 02:50 19 01/20/19 02:40 92 18 136/93 99 01/20/19 01:27 19 01/19/19 21:57 92 16 124/79 99 01/19/19 19:50 93 18 136/94 97 01/19/19 18:55 145/91 01/19/19 18:25 98 20 151/101 98 01/19/19 17:30 20 01/19/19 17:22 96 20 143/105 99 01/19/19 16:29 98.1 F 97 20 143/108 100 Intake and Output 01/20/19 01/20/19 01/20/19 06:59 14:59 22:59 Other: Voiding Method Toilet Toilet # Voids 1 GENERAL: The patient is alert and oriented x3, not in any acute distress. Well developed, well nourished. HEENT: Pupils are round and equally reacting to light. EOMI. No scleral icterus. No conjunctival pallor. Normocephalic, atraumatic. No pharyngeal erythema. No thyromegaly. CARDIOVASCULAR: S1 and S2 present. No murmurs, rubs, or gallops. PULMONARY: Chest is clear to auscultation, no wheezing or crackles. -ABDOMEN: Soft, nontender, abdomen is severely distended secondary to ascites, normoactive bowel sounds. No palpable organomegaly. MUSCULOSKELETAL: No joint swelling or deformity. -EXTREMITIES: No cyanosis, clubbing, . Patient has bilateral leg edema NEUROLOGICAL: Gross neurological examination did not reveal any focal deficits. SKIN: No rashes. Results CBC & Chem 7: 01/19/19 16:37 01/19/19 16:37 Labs: Abnormal Lab Results - Last 24 Hours (Table) 01/19/19 01/19/19 01/19/19 Range/Units 16:37 16:37 16:37 WBC 3.1 L (3.8-10.6) k/uL Hgb 10.1 L (13.0-17.5) gm/dL Hct 33.8 L (39.0-53.0) % MCV 75.7 L (80.0-100.0) fL MCH 22.5 L (25.0-35.0) pg MCHC 29.8 L (31.0-37.0) g/dL RDW 19.3 H (11.5-15.5) % Plt Count 102 L (150-450) k/uL Lymphocytes # 0.7 L (1.0-4.8) k/uL PT 13.4 H (9.0-12.0) sec INR 1.3 H (<1.2) Sodium 133 L (137-145) mmol/L BUN 21 H (9-20) mg/dL Creatinine 0.62 L (0.66-1.25) mg/dL Calcium 8.3 L (8.4-10.2) mg/dL Total Bilirubin 1.4 H (0.2-1.3) mg/dL Albumin 3.2 L (3.5-5.0) g/dL Lipase 362 H (23-300) U/L Thrombosis Risk Factor Assmnt - Choose All That Apply Any of the Below Risk Factors Present?: Yes Each Factor Represents 1 point: Age 41-60 years, Obesity (BMI >25) Other Risk Factors: No Other congenital or acquired thrombophilia - If yes, enter type in comment: No Thrombosis Risk Factor Assessment Total Risk Factor Score: 2 Thrombosis Risk Factor Assessment Level: Low Risk Assessment and Plan Assessment: Ascites liver cirrhosis Bilateral leg swelling Nicotine dependence History of hypertension History of hyperlipidemia Plan: This is a pleasant 58 years old male who presents with ascites secondary to cirrhosis. Patient is going for paracentesis tomorrow. Start Lasix.Consult personal banking representative Labs and medication were reviewed.. Continue same treatment. Continue with symptomatic treatment. Resume home medication. Monitor lytes and vitals. DVT and GI prophylaxis. Further recommendations of the clinical course of the patient DVT prophylaxis: Subcutaneous heparin GI Prophylaxis: Pepcid
[2019-01-20] MEDS: MORPHINE SULFATE 2 MG/ML SYRINGE IVP PRN (21:19)
[2019-01-20] MEDS: FUROSEMIDE 10 MG/ML 4 ML VIAL IV SCH (21:20)
[2019-01-20] MEDS: HEPARIN SODIUM,PORCINE 5,000 UNIT/ML 1 ML VIAL SQ SCH (21:20)
[2019-01-20] MEDS: FAMOTIDINE 20 MG/2 ML VIAL IV SCH (21:20)
[2019-01-21] MEDS: FAMOTIDINE 20 MG/2 ML VIAL IV SCH ×2 (07:48→20:03)
[2019-01-21] MEDS: FUROSEMIDE 10 MG/ML 4 ML VIAL IV SCH (07:48)
[2019-01-21 08:44] LABS: Anisocytosis Slight; Basophils % (A) 0 %; Eosinophils # (A) 0.1 k/uL (0-0.7); Eosinophils % (A) 4 %; HCT 32.8 % (39.0-53.0); HGB 9.7 gm/dL (13.0-17.5); Hypochromasia Marked; Lymphocytes # (A) 0.8 k/uL (1.0-4.8); Lymphocytes % (A) 31 %; MCH 23.3 pg (25.0-35.0); MCHC 29.7 g/dL (31.0-37.0); MCV 78.5 fL (80.0-100.0); Mean Platelet Volume 7.7; Microcytosis Slight; Monocytes # (A) 0.2 k/uL (0-1.0); Monocytes % (A) 8 %; Neutrophils # (A) 1.3 k/uL (1.3-7.7); Neutrophils % (A) 53 %; RBC 4.18 m/uL (4.30-5.90); RDW 18.3 % (11.5-15.5); WBC 2.5 k/uL (3.8-10.6)
[2019-01-21 08:49] LABS: ALT 32 U/L (21-72); AST 49 U/L (17-59); Albumin 2.9 g/dL (3.5-5.0); Alkaline Phosphatase 95 U/L (38-126); Anion Gap 5 mmol/L; Blood Urea Nitrogen 19 mg/dL (9-20); Calcium 8.1 mg/dL (8.4-10.2); Carbon Dioxide 26 mmol/L (22-30); Chloride 104 mmol/L (98-107); Glucose 92 mg/dL (74-99); Sodium 135 mmol/L (137-145); Total Bilirubin 1.5 mg/dL (0.2-1.3); Total Protein 6.8 g/dL (6.3-8.2)
[2019-01-21 09:25] LABS: Platelet Count 93 k/uL (150-450)
--- NOTE | 2019-01-21 11:20 | P.PN ---
Subjective this is a pleasant 58 years old male with past medical history of liver cirrhosis, ascites needing paracentesis, hyperlipidemia and hypertension. This time patient presents with similar abdominal distention. Patient follow up with sole rounder in [place]. The presents with significant abdominal distention with breathing difficulty however his breathing is not labored has some dry cough but no phlegm. No chest pain. No abdominal pain. No abdominal tenderness. No change in urine or bowel habits. vitals are stable. Labs shows WBC of 3.1K, hemoglobin 10.1, platelet count 1 or 2. INR 1.3. Sodium 133. Creatinine 0.6. Bilirubin is 1.4. Liver enzymes elevated. Lipase 362, amylase 59. Ammonia 13. Abdominal series x-ray showing no active cardiopulmonary disease and abdominal ascites as per radiologist's report patient states that he does not take medications at home. He smokes about 1 pack per day. He denies alcohol or ILLICIT tracts. Patient was counseled about quitting smoking. He does not want nicotine patch patient is going for paracentesis tomorrow 01/21/2019 Patients with ascites. He is going for paracentesis today. Vitals and labs are reviewed and they look stable. GI team are going to evaluate the patient's. Patient was started on Lasix yesterday. Objective - Vital Signs Vital signs: Vital Signs Temp 98.0 F 01/21/19 07:00 Pulse 91 01/21/19 07:00 Resp 18 01/21/19 07:00 BP 124/80 01/21/19 07:00 Pulse Ox 98 01/21/19 07:00 Intake & Output 01/20/19 01/21/19 01/21/19 18:59 06:59 18:59 Intake Total 358 120 Balance 358 120 Weight 84.1 kg Intake: Oral 358 120 Other: Voiding Method Toilet Toilet Toilet # Voids 1 3 - Exam GENERAL: The patient is alert and oriented x3, not in any acute distress. Well developed, well nourished. HEENT: Pupils are round and equally reacting to light. EOMI. No scleral icterus. No conjunctival pallor. Normocephalic, atraumatic. No pharyngeal erythema. No thyromegaly. CARDIOVASCULAR: S1 and S2 present. No murmurs, rubs, or gallops. PULMONARY: Chest is clear to auscultation, no wheezing or crackles. -ABDOMEN: Soft, nontender, abdomen is severely distended secondary to ascites, normoactive bowel sounds. No palpable organomegaly. MUSCULOSKELETAL: No joint swelling or deformity. -EXTREMITIES: No cyanosis, clubbing, . Patient has bilateral leg edema NEUROLOGICAL: Gross neurological examination did not reveal any focal deficits. SKIN: No rashes. - Labs CBC & Chem 7: 01/21/19 08:12 01/21/19 08:12 Labs: Abnormal Lab Results - Last 24 Hours (Table) 01/21/19 01/21/19 Range/Units 08:12 08:12 WBC 2.5 L (3.8-10.6) k/uL RBC 4.18 L (4.30-5.90) m/uL Hgb 9.7 L (13.0-17.5) gm/dL Hct 32.8 L (39.0-53.0) % MCV 78.5 L (80.0-100.0) fL MCH 23.3 L (25.0-35.0) pg MCHC 29.7 L (31.0-37.0) g/dL RDW 18.3 H (11.5-15.5) % Plt Count 93 L (150-450) k/uL Lymphocytes # 0.8 L (1.0-4.8) k/uL Sodium 135 L (137-145) mmol/L Calcium 8.1 L (8.4-10.2) mg/dL Total Bilirubin 1.5 H (0.2-1.3) mg/dL Albumin 2.9 L (3.5-5.0) g/dL Assessment and Plan Assessment: Ascites liver cirrhosis Bilateral leg swelling Nicotine dependence History of hypertension History of hyperlipidemia Plan: This is a pleasant 58 years old male who presents with ascites secondary to cirrhosis. Patient is going for paracentesis tomorrow. Start Lasix.Consult sole rounder Labs and medication were reviewed.. Continue same treatment. Continue with symptomatic treatment. Resume home medication. Monitor lytes and vitals. DVT and GI prophylaxis. Further recommendations of the clinical course of the patient DVT prophylaxis: Subcutaneous heparin GI Prophylaxis: Pepcid
--- NOTE | 2019-01-21 14:52 | P.CONS ---
History of Present Illness - Reason for Consult Consult date: 01/21/19 Cirrhosis ascites Requesting physician: Lc Harrison - Chief Complaint Abdominal distention - History of Present Illness 50-year-old male with a history of EtOH cirrhotic liver disease ascites portal hypertension paracentesis. Patient presented with increased abdominal d istention ascites requesting paracentesis evaluation. Patient is scheduled for paracentesis today. No fever or chills. White count 2.5. Hemoglobin 9.7. Platelet 93,000. INR 1.3. BUN 19. Creatinine 0.6. Total bilirubin 1.5. AST 49. ALT 32. AP 95. Last paracentesis 12/24/2018 9.1 L removed cytology negative for malignancy. No home maintenance medications of diuretics. Acute abdominal series reported abdominal ascites. Denies fever chills, hematemesis hematochezia or melena. Review of Systems Constitutional: Denies fever, chills, sweats, weight gain, or loss. HEENT: Negative for migraines, blurred vision or loss, earaches, drainage, tinnitus, oral mucosal lesions, dysphagia, or odynophagia. Cardiac: Negative for chest pain, arrhythmias, or palpitation. Respiratory: Negative for shortness of breath, hemoptysis, cough, or sputum production. Gastrointestinal: See HPI for pertinent findings. Genitourinary: Negative for hematuria, urgency, frequency, polyuria, dysuria, or penile discharge. Musculoskeletal: Negative for muscle aches, swelling, arthritis, and arthralgias. Neurologic: Negative for stroke or TIA. Endocrine: Negative for thyroid problems. Skin: Negative for rash or itching. Psychiatric: Negative history for depression and anxiety Past Medical History Past Medical History: Hyperlipidemia, Hypertension Additional Past Medical History / Comment(s): cirrhosis GI Bleed History of Any Multi-Drug Resistant Organisms: None Reported Past Surgical History: No Surgical Hx Reported Additional Past Surgical History / Comment(s): paracentesis 1 month ago over 2 liters taken off Past Anesthesia/Blood Transfusion Reactions: No Reported Reaction Past Psychological History: Anxiety, Bipolar, Depression, Schizophrenia Smoking Status: Current every day smoker Past Alcohol Use History: Rare Past Drug Use History: None Reported Additional Drug Use History / Comment(s): smokes half a pack a day, quit drinking in september was drinking 10 cans of beer a day - Past Family History Mother Family Medical History: Congestive Heart Failure (CHF), Myocardial Infarction ([place]) Father Family Medical History: Diabetes Mellitus Medications and Allergies Home Medications Medication Instructions Recorded Confirmed Type Albuterol Inhaler [Ventolin Hfa 2 puff INHALATION RT-Q6H PRN 01/19/19 01/20/19 History Inhaler] Allergies Allergy/AdvReac Type Severity Reaction Status Date / Time No Known Allergies Allergy Verified 01/20/19 03:09 Physical Exam Vitals: Vital Signs Temp Pulse Resp BP Pulse Ox 01/21/19 07:00 98.0 F 91 18 124/80 98 01/21/19 03:24 18 01/21/19 00:00 18 01/20/19 23:58 98.1 F 105 H 18 134/83 99 01/20/19 20:00 18 01/20/19 16:04 98.2 F 90 18 125/68 99 Intake and Output 01/20/19 01/21/19 01/21/19 22:59 06:59 14:59 Intake Total 240 120 Balance 240 120 Intake: Oral 240 120 Other: Voiding Method Toilet Toilet Toilet # Voids 1 3 Weight 84.1 kg General appearance: The patient is alert, oriented, in no acute distress. HET: Head is normocephalic and atraumatic. Pupils are equal and reactive. Oropharynx is clear without lesions. Neck: Supple without lymphadenopathy. Trachea midline. Heart: S1 S2. Regular rate and rhythm. Lungs: No crackles or wheezes are heard. Abdomen: Soft, distended with tense ascites with bowel sounds. No peritoneal signs. No palpable organomegaly or masses. Extremities: Normal skin color and turgor. No cyanosis, rash, ulceration, clubbing, or edema. Radial and pedal pulses are 2/4 bilaterally. Neurological: No focal deficits. Strength and sensation are grossly intact. Results CBC & Chem 7: 01/21/19 08:12 01/21/19 08:12 Labs: Abnormal Lab Results - Last 24 Hours (Table) 01/21/19 01/21/19 Range/Units 08:12 08:12 WBC 2.5 L (3.8-10.6) k/uL RBC 4.18 L (4.30-5.90) m/uL Hgb 9.7 L (13.0-17.5) gm/dL Hct 32.8 L (39.0-53.0) % MCV 78.5 L (80.0-100.0) fL MCH 23.3 L (25.0-35.0) pg MCHC 29.7 L (31.0-37.0) g/dL RDW 18.3 H (11.5-15.5) % Plt Count 93 L (150-450) k/uL Lymphocytes # 0.8 L (1.0-4.8) k/uL Sodium 135 L (137-145) mmol/L Calcium 8.1 L (8.4-10.2) mg/dL Total Bilirubin 1.5 H (0.2-1.3) mg/dL Albumin 2.9 L (3.5-5.0) g/dL Abdominal x-ray: report reviewed (Dr. Elizabeth) Assessment and Plan (1) Cirrhosis of liver with ascites Current Visit: Yes Status: Acute Code(s): K74.60 - UNSPECIFIED CIRRHOSIS OF LIVER; R18.8 - OTHER ASCITES SNOMED Code(s): 78808524 (2) Portal hypertension Current Visit: Yes Status: Acute Code(s): K76.6 - PORTAL HYPERTENSION SNOMED Code(s): 34794282 (3) Thrombocytopenia Current Visit: Yes Status: Acute Code(s): D69.6 - THROMBOCYTOPENIA, UNSPECIFIED SNOMED Code(s): 980302900 Plan: 1. Paracentesis. Lasix 40 mg twice daily. Aldactone 50 mg daily. Low-salt diet. Return to office in 3-4 weeks for reevaluation. Patient will receive post-paracentesis albumin. Thank you for this kind referral and the opportunity to participate in the care of your patient. This consultation was discussed with Dr. Elizabeth. The impression and plan of care have been directed as dictated.
[2019-01-21] MEDS ORDERED: SPIRONOLACTONE 25 MG TAB PO SCH (15:00)
[2019-01-21] MEDS ORDERED: ALBUMIN HUMAN 25% 50 ML in EMPTY BAG 1 BAG IVPB SCH (15:00)
--- NOTE | 2019-01-21 15:51 | US ---
EXAMINATION TYPE: US paracentesis abd w/image DATE OF EXAM: 01/21/2019 COMPARISON: NONE HISTORY: Ascites. PROCEDURE: Maximal barrier technique was utilized. The skin overlying a suitable pocket of fluid was localized with ultrasound and the overlying skin was prepped and draped. Ultrasound was utilized with sterile technique. Lidocaine was used for local anesthesia and a skin kassy made with a scalpel. Catheter was advanced under direct ultrasound guidance into a suitable pocket of fluid and approximately 12 liters of serous fluid were removed. Catheter was withdrawn and hemostasis achieved. There is no immediat e complication; the patient is discharged in stable condition. IMPRESSION: STATUS POST ULTRASOUND GUIDED PARACENTESIS FOR PALLIATION OF ASCITES. THIS PROCEDURE WA S PERFORMED BY THE UNDERSIGNED.
[2019-01-21] MEDS: ALBUMIN HUMAN 25% 50 ML in EMPTY BAG 1 BAG IVPB SCH ×8 (16:46→21:40)
[2019-01-21] MEDS: HEPARIN SODIUM,PORCINE 5,000 UNIT/ML 1 ML VIAL SQ SCH ×2 (16:46→20:03)
[2019-01-22] MEDS: FUROSEMIDE 10 MG/ML 4 ML VIAL IV SCH
[2019-01-22 00:26] VITALS: BP 112/49; PULSE 99; RESP 18; TEMP 100.8
[2019-01-22] MEDS: MORPHINE SULFATE 2 MG/ML SYRINGE IVP PRN (03:20)
[2019-01-22 06:04] LABS: Anion Gap 5 mmol/L; Blood Urea Nitrogen 19 mg/dL (9-20); Calcium 7.8 mg/dL (8.4-10.2); Carbon Dioxide 26 mmol/L (22-30); Chloride 102 mmol/L (98-107); Glucose 86 mg/dL (74-99); Potassium 3.5 mmol/L (3.5-5.1); Sodium 133 mmol/L (137-145)
--- NOTE | 2019-01-22 12:44 | P.DS ---
Providers Date of admission: 01/19/19 17:55 Attending physician: Fe Butler Consults: 01/20/19 15:48 Consult Physician Urgent Consulting Provider: Dany Elizabeth Consult Reason/Comments: Liver cirrhosis and ascites Do you want consulting provider notified?: Yes Primary care physician: Jay Winn DO Hospital Course: Please note this is a discharge summary as patient was not discharged and he le ft ama Diagnoses: Ascites liver cirrhosis Bilateral leg swelling Nicotine dependence History of hypertension History of hyperlipidemia Hospital course: This is a 58 years old male who presents with ascites and secondary to liver cirrhosis with no abdominal pain he underwent paracentesis yesterday with about 12 L OF FLUID WAS REMOVED. today patient signed leaving AMA before I have a chance to come and see him. I discussed the case with GI team may have been evaluated the patient today as he left nearly a.m. after signing AMA Patient Condition at Discharge: Fair Plan - Discharge Summary Discharge Rx Participant: No New Discharge Prescriptions: No Action Albuterol Inhaler [Ventolin Hfa Inhaler] 2 puff INHALATION RT-Q6H PRN PRN Reason: Shortness Of Breath Or Wheezing Discharge Medication List Albuterol Inhaler [Ventolin Hfa Inhaler] 2 puff INHALATION RT-Q6H PRN 01/19/19 [History] Follow up Appointment(s)/Referral(s): Jay Winn DO [Primary Care Provider] - 1-2 days Dany Elizabeth MD [STAFF PHYSICIAN] - 01/29/19 10:00 am Discharge Disposition: Left Against Medical Advice
== END 2019-01-22 05:55 | disposition left against medical advice (07) ==
LOC: EC 16:26 → 4MS4W 17:55 → 1SOBS 01-20 02:36
PROVIDERS: ADMIT Hospitalist; ATTEND Hospitalist
DX: K70.31 Alcoholic cirrhosis of liver with ascites (principal); K76.6 Portal hypertension; I10 Essential (primary) hypertension; D69.6 Thrombocytopenia, unspecified; E78.5 Hyperlipidemia, unspecified; F31.9 Bipolar disorder, unspecified; F41.9 Anxiety disorder, unspecified; F20.9 Schizophrenia, unspecified; R22.43 Localized swelling, mass and lump, lower limb, bilateral; R74.8 Abnormal levels of other serum enzymes; K59.00 Constipation, unspecified; E66.9 Obesity, unspecified; Z68.29 Body mass index [BMI] 29.0-29.9, adult; F17.210 Nicotine dependence, cigarettes, uncomplicated; Z87.19 Personal history of other diseases of the digestive system; Z83.3 Family history of diabetes mellitus; Z82.49 Family history of ischemic heart disease and other diseases of the circulatory system; Z53.21 Procedure and treatment not carried out due to patient leaving prior to being seen by health care provider
CPT/HCPCS: 96372 ×2; 96375; 96376 ×2; 96374; 99285; 36415; 80053 ×2; 80048; 82140; 82150; 82550; 83690; 85025 ×2; 85610; 85730; 82105; 74022; 49083; G0378 ×4; J2270 ×4; J1644 ×2; J1940 ×3; P9047

== ENCOUNTER 2019-04-20 20:53 | Emergency (ER) | payer MEDICARE, OTHER ==
--- NOTE | 2019-04-20 21:25 | ED ---
Psych HPI - General Chief Complaint: Psychiatric Symptoms Stated Complaint: Mental health Time Seen by Provider: 04/20/19 21:08 Source: patient Mode of arrival: ambulatory - History of Present Illness Initial Comments: This patient is a 58-year-old man with history of bipolar disorder and schizophrenia. He presents to be evaluated for feeling depressed and suicidal. The patient states he has had the symptoms going back for 10 years though he states for some reason tonight he was feeling worse. The patient states that he had been at a friend's house where he is staying as he is homeless, and he left the friend's house without signs weren't came here for evaluation. Patient states she does have some occasional auditory hallucinations and he has had some suicidal thoughts as well. MD Complaint: suicidal ideation, feels depressed Onset/Timin -: year(s) Associated Psychiatric Symptoms: depression, suicidal ideation History of same: Yes Quality: constant, getting worse Improves With: none Worsens With: none Associated Symptoms: denies other symptoms - Related Data Home Medications Medication Instructions Recorded Confirmed Furosemide [Lasix] 40 mg PO DAILY 04/20/19 04/20/19 Spironolactone 100 mg PO DAILY 04/20/19 04/20/19 Allergies Allergy/AdvReac Type Severity Reaction Status Date / Time No Known Allergies Allergy Verified 04/20/19 21:09 Review of Systems ROS Statement: Those systems with pertinent positive or pertinent negative responses have been documented in the HPI. ROS Other: All systems not noted in ROS Statement are negative. Constitutional: Denies: fever, chills Respiratory: Denies: cough, dyspnea Cardiovascular: Denies: chest pain, palpitations Gastrointestinal: Reports: other (Patient has long history of liver disease and states he gets paracentesis performed every week on at [facility]). Denies: abdominal pain, nausea, vomiting Genitourinary: Denies: dysuria, hematuria Musculoskeletal: Denies: back pain Skin: Denies: rash Neurological: Denies: headache Psychiatric: Reports: depression, auditory hallucinations, suicidal thoughts. Denies: visual hallucinations, homicidal thoughts Past Medical History Past Medical History: Hyperlipidemia, Hypertension Additional Past Medical History / Comment(s): cirrhosis GI Bleed History of Any Multi-Drug Resistant Organisms: None Reported Past Surgical History: No Surgical Hx Reported Additional Past Surgical History / Comment(s): paracentesis 1 month ago over 2 liters taken off Past Anesthesia/Blood Transfusion Reactions: No Reported Reaction Past Psychological History: Anxiety, Bipolar, Depression, Schizophrenia Smoking Status: Current every day smoker Past Alcohol Use History: Rare Past Drug Use History: None Reported - Past Family History Mother Family Medical History: Congestive Heart Failure (CHF), Myocardial Infarction ([place]) Father Family Medical History: Diabetes Mellitus General Exam Limitations: no limitations General appearance: alert, in no apparent distress Head exam: Present: atraumatic, normocephalic Eye exam: Present: normal appearance ENT exam: Present: normal oropharynx, other (Poor dentition) Neck exam: Present: normal inspection Respiratory exam: Present: normal lung sounds bilaterally. Absent: respiratory distress, wheezes, rales, rhonchi, stridor Cardiovascular Exam: Present: regular rate, normal rhythm, normal heart sounds. Absent: systolic murmur, diastolic murmur, rubs, gallop GI/Abdominal exam: Present: soft, other (Moderate amount of ascites). Absent: tenderness, guarding, rebound, rigid Extremities exam: Present: normal inspection, normal capillary refill. Absent: pedal edema, calf tenderness Back exam: Present: normal inspection Neurological exam: Present: alert, oriented X3, normal gait Skin exam: Present: warm, dry, intact. Absent: rash Course Vital Signs 04/20/19 20:57 Temperature 98.0 F Pulse Rate 89 Respiratory 22 Rate Blood Pressure 154/84 O2 Sat by Pulse 99 Oximetry Medical Decision Making - Lab Data Lab Results 04/20/19 Range/Units 21:15 Urine Color Dark Yellow Urine Appearance Cloudy (Clear) Urine pH 6.5 (5.0-8.0) Ur Specific [place] 1.024 (1.001-1.035) Urine Protein 1+ H (Negative) Urine Glucose (UA) Negative (Negative) Urine Ketones Negative (Negative) Urine Blood Negative (Negative) Urine Nitrite Positive (Negative) Urine Bilirubin Negative (Negative) Urine Urobilinogen 8.0 (<2.0) mg/dL Ur Leukocyte Esterase Large H (Negative) Urine RBC 9 H (0-5) /hpf Urine WBC 70 H (0-5) /hpf Urine Mucus Many H (None) /hpf Urine Opiates Screen Not Detected (NotDetected) Ur Oxycodone Screen Not Detected (NotDetected) Urine Methadone Screen Not Detected (NotDetected) Ur Propoxyphene Screen Not Detected (NotDetected) Ur Barbiturates Screen Not Detected (NotDetected) U Tricyclic Antidepress Not Detected (NotDetected) Ur Phencyclidine Scrn Not Detected (NotDetected) Ur Amphetamines Screen Not Detected (NotDetected) U Methamphetamines Scrn Not Detected (NotDetected) U Benzodiazepines Scrn Not Detected (NotDetected) Urine Cocaine Screen Not Detected (NotDetected) U Marijuana (THC) Screen Detected H (NotDetected) Disposition Clinical Impression: Mood disorder Disposition: HOME SELF-CARE Condition: Fair Instructions (If sedation given, give patient instructions): Mood Disorders (ED ) Is patient prescribed a controlled substance at d/c from ED?: No Referrals: Jay Winn DO [Primary Care Provider] - 1-2 days
[2019-04-20 21:28] LABS: Appearance,Urine Cloudy (Clear); Bilirubin,Urine Negative (Negative); Blood,Urine Negative (Negative); Color,Urine Dark Yellow; Glucose,Urine (UA) Negative (Negative); Ketones,Urine Negative (Negative); Leukocyte Esterase,Urine Large (Negative); Mucus,Urine Many /hpf; Nitrite,Urine Positive (Negative); PH, Urine 6.5 (5.0-8.0); Protein,Urine 1+ (Negative); RBC,Urine 9 /hpf (0-5); Specific Gravity,Urine 1.024 (1.001-1.035); WBC,Urine 70 /hpf (0-5)
[2019-04-20 21:33] LABS: Amphetamine Screen,Urine Not Detected (NotDetected); Barbiturate Screen,Urine Not Detected (NotDetected); Benzodiazepines Screen,Urine Not Detected (NotDetected); Cocaine Screen,Urine Not Detected (NotDetected); Methadone Screen, Urine Not Detected (NotDetected); Opiate Screen,Urine Not Detected (NotDetected); Oxycodone Screen, Urine Not Detected (NotDetected); Phencyclidine Screen,Urine Not Detected (NotDetected); Tricyclic Antidepressant,Urine Not Detected (NotDetected); Urn Cannabinoid Scrn Detected (NotDetected)
[2019-04-21 00:28] VITALS: BP 132/71; PULSE 86; RESP 18; TEMP 98.6
== END 2019-04-21 00:30 | disposition home or self-care (01) ==
LOC: EC 20:53
DX: F31.30 Bipolar disorder, current episode depressed, mild or moderate severity, unspecified (principal); R45.851 Suicidal ideations; R44.0 Auditory hallucinations; K74.60 Unspecified cirrhosis of liver; I10 Essential (primary) hypertension; F17.200 Nicotine dependence, unspecified, uncomplicated; Z79.899 Other long term (current) drug therapy; Z59.0 Homelessness; Z98.890 Other specified postprocedural states
CPT/HCPCS: 80306; 81001; 82075; 99285

== ENCOUNTER 2019-06-22 10:17 | Observation (INO) | payer MEDICARE, OTHER ==
[2019-06-22 13:34] LABS: ALT 38 U/L (21-72); AST 52 U/L (17-59); African American GFR (CKD) >90 (>60 ml/min/1.73 sqM); Albumin 3.2 g/dL (3.5-5.0); Alkaline Phosphatase 126 U/L (38-126); Anion Gap 8 mmol/L; Blood Urea Nitrogen 13 mg/dL (9-20); Calcium 8.2 mg/dL (8.4-10.2); Carbon Dioxide 20 mmol/L (22-30); Chloride 107 mmol/L (98-107); Glucose 104 mg/dL (74-99); Non-African American GFR(CKD) >90 (>60 ml/min/1.73 sqM); Potassium 4.6 mmol/L (3.5-5.1); Sodium 135 mmol/L (137-145); Total Bilirubin 1.6 mg/dL (0.2-1.3); Total Protein 7.2 g/dL (6.3-8.2)
[2019-06-22 13:38] LABS: INR 1.2 (<1.2); Partial Thromboplastin Time 22.9 sec (22.0-30.0); Prothrombin Time 12.1 sec (9.0-12.0)
[2019-06-22 13:40] LABS: Anisocytosis Slight; Basophils % (A) 1 %; Eosinophils # (A) 0.1 k/uL (0-0.7); Eosinophils % (A) 2 %; HCT 35.6 % (39.0-53.0); HGB 11.5 gm/dL (13.0-17.5); Hypochromasia Slight; Lymphocytes # (A) 0.7 k/uL (1.0-4.8); Lymphocytes % (A) 21 %; MCH 26.5 pg (25.0-35.0); MCHC 32.2 g/dL (31.0-37.0); MCV 82.2 fL (80.0-100.0); Mean Platelet Volume 6.3; Monocytes # (A) 0.3 k/uL (0-1.0); Monocytes % (A) 9 %; Neutrophils # (A) 2.1 k/uL (1.3-7.7); Neutrophils % (A) 65 %; Platelet Count 95 k/uL (150-450); RBC 4.33 m/uL (4.30-5.90); WBC 3.2 k/uL (3.8-10.6)
--- NOTE | 2019-06-22 13:53 | XR ---
EXAMINATION TYPE: XR chest 2V DATE OF EXAM: 06/22/2019 COMPARISON: 12/25/2018 HISTORY: Shortness of breath TECHNIQUE: Frontal and lateral views of the chest are obtained. FINDINGS: There is no focal air space opacity, pleural effusion, or pneumothorax seen. The cardiac silhouette size is within normal limits. Prominent sally are unchanged from 12/25/2018 and may represen t underlying pulmonary arterial hypertension. The osseous structures are intact. Surgical changes se en in the left paracentral abdomen, possibly embolization coils. IMPRESSION: No acute cardiopulmonary process.
--- NOTE | 2019-06-22 14:03 | ED ---
SOB HPI - General Chief Complaint: Shortness of Breath Stated Complaint: abdominal swelling Time Seen by Provider: 06/22/19 12:36 Source: patient, RN notes reviewed, old records reviewed Mode of arrival: wheelchair Limitations: physical limitation - History of Present Illness Initial Comments: Patient is is a 58-year-old male, presents emergency department today for evaluation for complaints of abdominal distention, difficulty breathing. Patient reports he is a paracentesis. His last one was done 2 weeks ago. Said them done normally at [facility]. Patient reports that his GI specialist is Dr. Jeremie Tapia? Patient denies any fevers or chills. Patient denies any recent fever, chills, shortness of breath, chest pain, back pain,nausea vo miting, numbness or tingling, dysuria or hematuria, constipation or diarrhea, headaches or visual changes, or any other current symptoms - Related Data Home Medications Medication Instructions Recorded Confirmed Furosemide [Lasix] 40 mg PO DAILY 04/20/19 06/22/19 Spironolactone 100 mg PO DAILY 04/20/19 06/22/19 Allergies Allergy/AdvReac Type Severity Reaction Status Date / Time No Known Allergies Allergy Verified 06/22/19 12:52 Review of Systems ROS Statement: Those systems with pertinent positive or pertinent negative responses have been documented in the HPI. ROS Other: All systems not noted in ROS Statement are negative. Past Medical History Past Medical History: Hyperlipidemia, Hypertension Additional Past Medical History / Comment(s): cirrhosis GI Bleed History of Any Multi-Drug Resistant Organisms: None Reported Past Surgical History: No Surgical Hx Reported Additional Past Surgical History / Comment(s): paracentesis 1 month ago over 2 liters taken off Past Anesthesia/Blood Transfusion Reactions: No Reported Reaction Past Psychological History: Anxiety, Bipolar, Depression, Schizophrenia Smoking Status: Current every day smoker Past Alcohol Use History: Rare Past Drug Use History: None Reported - Past Family History Mother Family Medical History: Congestive Heart Failure (CHF), Myocardial Infarction ([place]) Father Family Medical History: Diabetes Mellitus General Exam - General Exam Comments Initial Comments: 58-year-old male. Patient is pleasant. No distress. Limitations: physical limitation General appearance: alert, in no apparent distress Head exam: Present: atraumatic, normocephalic, normal inspection Eye exam: Present: normal appearance, PERRL, EOMI. Absent: scleral icterus, conjunctival injection, periorbital swelling ENT exam: Present: normal exam, mucous membranes moist Neck exam: Present: normal inspection. Absent: tenderness, meningismus, lymphadenopathy Respiratory exam: Present: decreased breath sounds. Absent: normal lung sounds bilaterally, respiratory distress, wheezes, rales, rhonchi, stridor Cardiovascular Exam: Present: regular rate, normal rhythm, normal heart sounds. Absent: systolic murmur, diastolic murmur, rubs, gallop, clicks GI/Abdominal exam: Present: tenderness (Distention. Ascites noted.), normal bowel sounds. Absent: soft, distended, guarding, rebound, rigid Extremities exam: Present: normal inspection, full ROM, normal capillary refill. Absent: tenderness, pedal edema, joint swelling, calf tenderness Back exam: Present: normal inspection Neurological exam: Present: alert Psychiatric exam: Present: normal affect, normal mood Skin exam: Present: warm, dry, intact, normal color. Absent: rash Course Vital Signs 06/22/19 06/22/19 10:19 13:20 Temperature 98.5 F Pulse Rate 85 85 Respiratory 17 20 Rate Blood Pressure 160/82 171/91 O2 Sat by Pulse 100 100 Oximetry Medical Decision Making - Medical Decision Making Patient is a 58-year-old male presents emergency department today for abdominal distention, requesting paracentesis. The last 2 WEEKS AGO AND HE REPORTS APPROXIMATELY 10 L OF FLUID WAS REMOVED. PATIENT REPORTS THAT HE HAS HAD NO FEVERS OR CHILLS OR OTHER SIGNIFICANT COMPLAINTS. HE REPORTS HE DOES not have specifically scheduled paracentesis procedures. At this time Patient has been given IV and lab work was obtained. Lab work was reviewed relatively unr emarkable. Patient has resting comfortably in bed but does appear to be labored breathing with sitting upright due to the amount of pressure and fluid out of his abdomen. Patient will be admitted this time with consult interventional radiology. I discussed the case with Dr. Fu whom discussed the case with Dr. Raza's group. - Lab Data Result diagrams: 06/22/19 13:06 06/22/19 13:06 Lab Results 06/22/19 06/22/19 06/22/19 Range/Units 13:06 13:06 13:06 WBC 3.2 L (3.8-10.6) k/uL RBC 4.33 (4.30-5.90) m/uL Hgb 11.5 L (13.0-17.5) gm/dL Hct 35.6 L (39.0-53.0) % MCV 82.2 (80.0-100.0) fL MCH 26.5 (25.0-35.0) pg MCHC 32.2 (31.0-37.0) g/dL RDW 17.0 H (11.5-15.5) % Plt Count 95 L (150-450) k/uL Neutrophils % 65 % Lymphocytes % 21 % Monocytes % 9 % Eosinophils % 2 % Basophils % 1 % Neutrophils # 2.1 (1.3-7.7) k/uL Lymphocytes # 0.7 L (1.0-4.8) k/uL Monocytes # 0.3 (0-1.0) k/uL Eosinophils # 0.1 (0-0.7) k/uL Basophils # 0.0 (0-0.2) k/uL Hypochromasia Slight Anisocytosis Slight PT 12.1 H (9.0-12.0) sec INR 1.2 H (<1.2) APTT 22.9 (22.0-30.0) sec Sodium 135 L (137-145) mmol/L Potassium 4.6 (3.5-5.1) mmol/L Chloride 107 (98-107) mmol/L Carbon Dioxide 20 L (22-30) mmol/L Anion Gap 8 mmol/L BUN 13 (9-20) mg/dL Creatinine 0.53 L (0.66-1.25) mg/dL Est GFR (CKD-EPI)AfAm >90 (>60 ml/min/1.73 sqM) Est GFR (CKD-EPI)NonAf >90 (>60 ml/min/1.73 sqM) Glucose 104 H (74-99) mg/dL Calcium 8.2 L (8.4-10.2) mg/dL Total Bilirubin 1.6 H (0.2-1.3) mg/dL AST 52 (17-59) U/L ALT 38 (21-72) U/L Alkaline Phosphatase 126 (38-126) U/L Total Protein 7.2 (6.3-8.2) g/dL Albumin 3.2 L (3.5-5.0) g/dL - Radiology Data Radiology results: report reviewed Chest x-ray is no acute cardio pulmonary process. Disposition Clinical Impression: Ascites, Abdominal pain, Cirrhosis of liver with ascites, Thrombocytopenia Disposition: ADMITTED IP TO THIS HOSP Condition: Stable Is patient prescribed a controlled substance at d/c from ED?: No Referrals: Jay Winn DO [Primary Care Provider] - 1-2 days Time of Disposition: 15:21
[2019-06-22] MEDS ORDERED: ONDANSETRON 4 MG/2 ML VIAL IVP PRN ×2 (15:22→15:24)
[2019-06-22] MEDS ORDERED: NALOXONE 0.4 MG/ML 1 ML VIAL IV PRN ×2 (15:22→15:24)
[2019-06-22] MEDS ORDERED: MORPHINE SULFATE 4 MG/ML SYRINGE IV PRN (15:24)
[2019-06-22] MEDS ORDERED: HYDROmorphone 0.5 MG/0.5 ML SYRINGE IVP PRN (15:24)
[2019-06-22] MEDS ORDERED: IBUPROFEN 400 MG TAB PO PRN (15:24)
[2019-06-22] MEDS: SODIUM CHLORIDE 0.9% 1,000 ML IV SCH (19:33)
[2019-06-22] MEDS ORDERED: PROPRANOLOL 20 MG TAB PO SCH (20:00)
[2019-06-23 08:49] LABS: Anisocytosis Slight; Basophils % (A) 1 %; Eosinophils # (A) 0.2 k/uL (0-0.7); Eosinophils % (A) 5 %; HCT 34.4 % (39.0-53.0); HGB 10.9 gm/dL (13.0-17.5); Hypochromasia Slight; Lymphocytes # (A) 0.7 k/uL (1.0-4.8); Lymphocytes % (A) 22 %; MCH 26.4 pg (25.0-35.0); MCHC 31.8 g/dL (31.0-37.0); MCV 83.1 fL (80.0-100.0); Mean Platelet Volume 7.2; Monocytes # (A) 0.3 k/uL (0-1.0); Monocytes % (A) 9 %; Neutrophils % (A) 61 %; RBC 4.14 m/uL (4.30-5.90); WBC 3.3 k/uL (3.8-10.6)
[2019-06-23 08:51] LABS: Platelet Count 95 k/uL (150-450)
[2019-06-23 08:55] LABS: African American GFR (CKD) >90 (>60 ml/min/1.73 sqM); Anion Gap 7 mmol/L; Blood Urea Nitrogen 17 mg/dL (9-20); Calcium 8.2 mg/dL (8.4-10.2); Carbon Dioxide 23 mmol/L (22-30); Chloride 106 mmol/L (98-107); Glucose 110 mg/dL (74-99); Non-African American GFR(CKD) >90 (>60 ml/min/1.73 sqM); Potassium 4.4 mmol/L (3.5-5.1); Sodium 136 mmol/L (137-145)
[2019-06-23] MEDS: FUROSEMIDE 40 MG TAB PO SCH (09:15)
[2019-06-23] MEDS: PROPRANOLOL 20 MG TAB PO SCH ×2 (09:15→21:13)
[2019-06-23] MEDS: SPIRONOLACTONE 25 MG TAB PO SCH (09:15)
[2019-06-23] MEDS: ALBUMIN HUMAN 25% 50 ML in EMPTY BAG 1 BAG IVPB SCH ×4 (09:29→10:21)
--- NOTE | 2019-06-23 12:36 | P.HPIM ---
History of Present Illness H&P Date: 06/22/19 Chief Complaint: Swelling of the abdomen Patient is a 58-year-old male with a known history of hypertension, hyperlipidemia, alcoholic liver cirrhosis and frequent gastritis and paracentesis came to ER with complaints of abdominal distention and difficulty breathing. Patient had last paracentesis done about [address] [facility]. Patient has been having worsening abdominal swelling and ascites since then. Denied any abdominal pain. No fever no chills. Patient does have short of breath with walking and unable to take deep breath due to severe abdominal swelling. No nausea vomiting. No hematemesis or melena. No hematuria or dysuria. No headache or dizziness or lightheadedness. Patient does take Lasix and spironolactone at home. No leg swelling. Review of Systems Constitutional: Patient denies any fever or chills . No generalized weakness or weight loss. Abdomen: Patient denied nausea vomiting and diarrhea and abdominal pain. Patient does have increased abdominal Cardiovascular: Patient denies any chest pain or short of breath no palpitations. Respiratory: patient denied any cough is from production. No shortness of breath Neurologic: Patient denied any numbness or tingling headache. Musculoskeletal: Patient denies any complaints of joint swelling or deformity. Skin: Negative Psychiatric: Negative Endocrine: No heat or cold intolerance. No recent weight gain. Genitourinary: No dysuria or hematuria. All other 14 point ROS negative except the above Past Medical History Past Medical History: Hyperlipidemia, Hypertension Additional Past Medical History / Comment(s): cirrhosis GI Bleed History of Any Multi-Drug Resistant Organisms: None Reported Past Surgical History: No Surgical Hx Reported Additional Past Surgical History / Comment(s): paracentesis 1 month ago over 2 liters taken off Past Anesthesia/Blood Transfusion Reactions: No Reported Reaction Past Psychological History: Anxiety, Bipolar, Depression, Schizophrenia Smoking Status: Current every day smoker Past Alcohol Use History: Rare Past Drug Use History: None Reported - Past Family History Mother Family Medical History: Congestive Heart Failure (CHF), Myocardial Infarction ([place]) Father Family Medical History: Diabetes Mellitus Medications and Allergies Home Medications Medication Instructions Recorded Confirmed Type Furosemide [Lasix] 40 mg PO DAILY 04/20/19 06/22/19 History Spironolactone 100 mg PO DAILY 04/20/19 06/22/19 History Allergies Allergy/AdvReac Type Severity Reaction Status Date / Time No Known Allergies Allergy Verified 06/22/19 12:52 Physical Exam Vitals: Vital Signs Temp Pulse Resp BP Pulse Ox 06/22/19 17:00 70 20 172/88 98 06/22/19 16:00 171/97 100 06/22/19 15:00 171/97 100 06/22/19 14:00 171/97 100 06/22/19 13:20 85 20 171/91 100 06/22/19 13:00 167/93 100 06/22/19 12:36 167/93 100 06/22/19 10: 98.5 F 85 17 160/82 100 Intake and Output 06/22/19 06/22/19 06/22/19 06:59 14:59 22:59 Other: Weight 81.647 kg PHYSICAL EXAMINATION: Patient is lying in the bed comfortably, no acute distress, awake alert and oriented.. HEENT: Normocephalic. Neck is supple. Pupils reactive. Nostrils clear. Oral cavity is moist. Ears reveal no drainage. Neck reveals no JVD, carotid bruits, or thyromegaly. CHEST EXAMINATION: Trachea is central. Symmetrical expansion. Lung posadas clear to auscultation and percussion. CARDIAC: Normal S1, S2 with no gallops. No murmurs ABDOMEN: Soft. Significantly distended with ascites. No guarding no rigidity no tenderness. Bowel sounds normal. No organomegaly. No abdominal bruits. Extremities: reveal no edema. No clubbing or cyanosis Neurologically awake, alert, oriented x3 with well-coordinated movements. No focal deficits noted Skin: No rash or skin lesions. Psychiatric: Coperative. Nonsuicidal Musculoskeletal: No joint swelling or deformity. Normal range of motion. Results CBC & Chem 7: 06/23/19 07:56 06/23/19 07:56 Labs: Abnormal Lab Results - Last 24 Hours (Table) 06/22/19 06/22/19 06/22/19 Range/Units 13:06 13:06 13:06 WBC 3.2 L (3.8-10.6) k/uL Hgb 11.5 L (13.0-17.5) gm/dL Hct 35.6 L (39.0-53.0) % RDW 17.0 H (11.5-15.5) % Plt Count 95 L (150-450) k/uL Lymphocytes # 0.7 L (1.0-4.8) k/uL PT 12.1 H (9.0-12.0) sec INR 1.2 H (<1.2) Sodium 135 L (137-145) mmol/L Carbon Dioxide 20 L (22-30) mmol/L Creatinine 0.53 L (0.66-1.25) mg/dL Glucose 104 H (74-99) mg/dL Calcium 8.2 L (8.4-10.2) mg/dL Total Bilirubin 1.6 H (0.2-1.3) mg/dL Albumin 3.2 L (3.5-5.0) g/dL Thrombosis Risk Factor Assmnt - DVT/VTE Prophylaxis DVT/VTE Prophylaxis: Mechanical Prophylaxis ordered Assessment and Plan Assessment: Severe ascites secondary to liver cirrhosis. Patient does get frequent paracentesis. Alcohol at liver cirrhosis. Hypertension Hyperlipidemia Anxiety/depression, bipolar and schizophrenia Ongoing nicotine addiction Chronic thrombocytopenia due to liver cirrhosis DVT prophylaxis with SCDs due to thrombocytopenia Plan: Patient be treated on Lasix and spironolactone. Ultrasound-guided paracentesis was ordered. Patient does not have any fever or abdominal tenderness. Unlikely SBP. Follow up closely and further recommendations based on the clinical course. Patient really to follow with GI clinic. Time with Patient: Greater than 30
--- NOTE | 2019-06-23 14:46 | US ---
EXAMINATION TYPE: US paracentesis abd w/image DATE OF EXAM: 06/23/2019 COMPARISON: NONE HISTORY: Ascites. PROCEDURE: Maximal barrier technique was utilized. The skin overlying a suitable pocket of fluid was localized with ultrasound and the overlying skin was prepped and draped. Ultrasound was utilized with sterile technique. Lidocaine was used for local anesthesia and a skin kassy made with a scalpel. Catheter was advanced under direct ultrasound guidance into a suitable pocket of fluid and approximately 12 liters of serous fluid were removed. Catheter was withdrawn and hemostasis achieved. There is no immediat e complication; the patient is discharged in stable condition. IMPRESSION: STATUS POST ULTRASOUND GUIDED PARACENTESIS FOR PALLIATION OF ASCITES. THIS PROCEDURE WA S PERFORMED BY THE UNDERSIGNED.
[2019-06-23] MEDS: SODIUM CHLORIDE 0.9% 1,000 ML IV SCH (21:13)
[2019-06-24 05:45] VITALS: BP 109/60; PULSE 63; RESP 16; TEMP 98.2
[2019-06-24] MEDS: SPIRONOLACTONE 25 MG TAB PO SCH (08:37)
[2019-06-24] MEDS: FUROSEMIDE 40 MG TAB PO SCH (08:37)
[2019-06-24] MEDS: PROPRANOLOL 20 MG TAB PO SCH (08:40)
--- NOTE | 2019-06-24 15:02 | P.DS ---
Providers Date of admission: 06/22/19 15:40 Expected date of discharge: 06/24/19 Attending physician: Fe Butler Primary care physician: Jay Winn DO Hospital Course: Final diagnosis Severe ascites secondary to liver cirrhosis. Alcoholic liver cirrhosis. Hypertension Hyperlipidemia Anxiety/depression, bipolar and schizophrenia Ongoing nicotine addiction Chronic thrombocytopenia DVT prophylaxis Discharge disposition Patient is being discharged in a stable condition with guarded prognosis to home and will follow-up with primary care provider upon discharge. Patient will also be following up with GI clinic for frequent paracentesis. Total time taken is 35 minutes. History of present illness This is a 58-year-old male was recently admitted with complaints of abdominal distention and difficulty breathing and was being closely monitored. Patient underwent paracentesis ultrasound-guided and had removal of approximately 12 L of serous fluid. Currently patient's condition is stable with much improvement and reports no shortness of breath at this time. Patient denies any chest pain or palpitations at this time. Discussed with the patient at length about continuing to follow-up with GI for his frequent paracentesis as he has been missing appointments. Patient will follow-up with primary care provider upon discharge. Guarded prognosis. On exam vital signs are stable. Temp is 98.2F, pulse is 63, respirations are 16, blood pressure is 109/60, oxygen saturation is 97% on room air. Cardio S1 and S2 are present. Respiratory system shows diminished breath sounds at the bases with expiratory wheezing noted. Abdomen is soft with mild distention and non-tender. Nervous system shows no focal deficits and gait is steady. Please refer to medication reconciliation sheet for a list of medications. Patient Condition at Discharge: Stable Plan - Discharge Summary New Discharge Prescriptions: Continue Furosemide [Lasix] 40 mg PO DAILY Spironolactone 100 mg PO DAILY Discharge Medication List Furosemide [Lasix] 40 mg PO DAILY 04/20/19 [History] Spironolactone 100 mg PO DAILY 04/20/19 [History] Follow up Appointment(s)/Referral(s): Jay Winn DO [Primary Care Provider] - 06/28/19 1:00 pm Patient Instructions/Handouts: Ascites (GEN) Activity/Diet/Wound Care/Special Instructions: Activity limited until follow up follow up with primary care provider upon discharge continue current diet follow up with GI Discharge Disposition: HOME SELF-CARE
--- NOTE | 2019-07-23 13:45 | P.PN ---
Subjective Progress Note Date: 06/23/19 Principal diagnosis: Ascites Patient is a 58-year-old male with a known history of hypertension, hyperlipidemia, alcoholic liver cirrhosis and frequent gastritis and paracentesis came to ER with complaints of abdominal distention and difficulty breathing. Patient had last paracentesis done about [address] [facility]. Patient has been having worsening abdominal swelling and ascites since then. Denied any abdominal pain. No fever no chills. Patient does have short of breath with walking and unable to take deep breath due to severe abdominal swelling. No nausea vomiting. No hematemesis or melena. No hematuria or dysuria. No headache or dizziness or lightheadedness. Patient does take Lasix and spironolactone at home. No leg swelling. 06/23/2019 Patient underwent ultrasound-guided paracentesis today. Abdominal distention and pain is much improved. No fever no chills. No chest pain or shortness of breath. Patient is being monitored and anticipate discharge in the next 24 hours. Current medications reviewed. Objective - Vital Signs Vital signs: Vital Signs Temp 98.2 F 06/24/19 05:00 Pulse 63 06/24/19 05:00 Resp 16 06/24/19 05:00 BP 109/60 06/24/19 05:00 Pulse Ox 97 06/24/19 05:00 Intake & Output 06/23/19 06/24/19 06/24/19 18:59 06:59 18:59 Intake Total 300 1180 Balance 300 1180 Weight 72.1 kg Intake: Oral 300 1180 Other: Voiding Method Toilet # Voids 2 - Exam PHYSICAL EXAMINATION: Patient is lying in the bed comfortably, no acute distress, awake alert and oriented.. HEENT: Normocephalic. Neck is supple. Pupils reactive. Nostrils clear. Oral cavity is moist. Ears reveal no drainage. Neck reveals no JVD, carotid bruits, or thyromegaly. CHEST EXAMINATION: Trachea is central. Symmetrical expansion. Lung posadas clear to auscultation and percussion. CARDIAC: Normal S1, S2 with no gallops. No murmurs ABDOMEN: Soft. distended with ascites. Nontender. No guarding no rigidity no tenderness. Bowel sounds normal. No organomegaly. No abdominal bruits. Extremities: reveal no edema. No clubbing or cyanosis Neurologically awake, alert, oriented x3 with well-coordinated movements. No focal deficits noted Skin: No rash or skin lesions. Psychiatric: Coperative. Nonsuicidal Musculoskeletal: No joint swelling or deformity. Normal range of motion. - Labs CBC & Chem 7: 06/23/19 07:56 06/23/19 07:56 Assessment and Plan Assessment: Severe ascites secondary to liver cirrhosis. Patient does get frequent paracentesis. Status post paracentesis today. Alcohol at liver cirrhosis. Hypertension Hyperlipidemia Anxiety/depression, bipolar and schizophrenia Ongoing nicotine addiction Chronic thrombocytopenia due to liver cirrhosis DVT prophylaxis with SCDs due to thrombocytopenia Plan: Patient be treated on Lasix and spironolactone. Ultrasound-guided paracentesis was ordered. Patient does not have any fever or abdominal tenderness. Unlikely SBP. Follow up closely and further recommendations based on the clinical course. Patient really to follow with GI clinic. Time with Patient: Greater than 30
== END 2019-06-24 11:50 | disposition home or self-care (01) ==
LOC: EC 10:17 → 3NMEDONC 15:40
PROVIDERS: ADMIT Hospitalist; ATTEND Hospitalist
DX: K70.31 Alcoholic cirrhosis of liver with ascites (principal); D69.59 Other secondary thrombocytopenia; I10 Essential (primary) hypertension; E78.5 Hyperlipidemia, unspecified; F31.9 Bipolar disorder, unspecified; F41.9 Anxiety disorder, unspecified; F20.9 Schizophrenia, unspecified; F17.200 Nicotine dependence, unspecified, uncomplicated; Z79.899 Other long term (current) drug therapy; Z87.19 Personal history of other diseases of the digestive system; Z82.49 Family history of ischemic heart disease and other diseases of the circulatory system; Z83.3 Family history of diabetes mellitus
CPT/HCPCS: 99285; 36415; 93005; 80053; 80048; 85025 ×2; 85610; 85730; 71046; 49083; G0378 ×3; P9047

== ENCOUNTER 2019-09-13 11:09 | Observation (INO) | payer MEDICARE, OTHER ==
[2019-09-13 11:59] LABS: Anisocytosis Slight; Basophils % (A) 0 %; Eosinophils # (A) 0.1 k/uL (0-0.7); Eosinophils % (A) 4 %; HCT 34.8 % (39.0-53.0); HGB 11.4 gm/dL (13.0-17.5); Hypochromasia Slight; Lymphocytes # (A) 0.7 k/uL (1.0-4.8); Lymphocytes % (A) 20 %; MCH 26.4 pg (25.0-35.0); MCHC 32.6 g/dL (31.0-37.0); MCV 80.9 fL (80.0-100.0); Mean Platelet Volume 8.2; Microcytosis Slight; Monocytes # (A) 0.2 k/uL (0-1.0); Monocytes % (A) 7 %; Neutrophils # (A) 2.3 k/uL (1.3-7.7); Neutrophils % (A) 66 %; Platelet Count 110 k/uL (150-450); RBC 4.31 m/uL (4.30-5.90); RDW 17.9 % (11.5-15.5); WBC 3.4 k/uL (3.8-10.6)
[2019-09-13 12:00] LABS: ALT 17 U/L (4-49); AST 45 U/L (17-59); African American GFR (CKD) >90 (>60 ml/min/1.73 sqM); Albumin 3.3 g/dL (3.5-5.0); Alkaline Phosphatase 97 U/L (38-126); Anion Gap 9 mmol/L; Blood Urea Nitrogen 13 mg/dL (9-20); Calcium 8.2 mg/dL (8.4-10.2); Carbon Dioxide 22 mmol/L (22-30); Chloride 106 mmol/L (98-107); Glucose 100 mg/dL (74-99); Non-African American GFR(CKD) >90 (>60 ml/min/1.73 sqM); Potassium 4.1 mmol/L (3.5-5.1); Sodium 137 mmol/L (137-145); Total Bilirubin 1.9 mg/dL (0.2-1.3); Total Protein 7.4 g/dL (6.3-8.2)
--- NOTE | 2019-09-13 12:04 | XR ---
EXAMINATION TYPE: XR chest 2V DATE OF EXAM: 09/13/2019 COMPARISON: 06/22/2019 HISTORY: Difficulty breathing TECHNIQUE: Frontal and lateral views of the chest are obtained. FINDINGS: There is no focal air space opacity, pleural effusion, or pneumothorax seen. Chronic sally r prominence. The cardiac silhouette size is within normal limits. The osseous structures are intac t. Embolization coils are seen in the left upper abdomen. Abdominal distention is noted on the latera l view. IMPRESSION: No acute cardiopulmonary process.
[2019-09-13 12:06] LABS: INR 1.1 (<1.2); Prothrombin Time 11.7 sec (9.0-12.0)
--- NOTE | 2019-09-13 12:09 | ED ---
SOB HPI - General Chief Complaint: Shortness of Breath Stated Complaint: BLANK Time Seen by Provider: 09/13/19 11:15 Source: patient, EMS Mode of arrival: ambulatory Limitations: no limitations - History of Present Illness Initial Comments: 59-year-old male with history of COPD, cirrhosis-from ETOH abuse, hx of varices, chronic ascites presenting today for chief complaint of abdominal distention, shortness of breath. Patient states he has weekly paracentesis for his chronic ascites developed from cirrhosis. Patient states that he has been unable to o btain transportation for his visits for paracentesis and has had increasing abdominal distention. He states he feels like his skin is stretching. Patient states that he now physically can't expand his lungs secondary to the distention and has shortness of breath. Patient denies any chest or back pain denies any nausea vomiting diarrhea fevers. Patient denies any other complaints upon arrival he appears well no signs of shortness of breath very obvious abdominal distention - Related Data Home Medications Medication Instructions Recorded Confirmed Furosemide [Lasix] 40 mg PO DAILY 04/20/19 09/13/19 Spironolactone 100 mg PO DAILY 04/20/19 09/13/19 Allergies Allergy/AdvReac Type Severity Reaction Status Date / Time No Known Allergies Allergy Verified 09/13/19 13:16 Review of Systems ROS Statement: Those systems with pertinent positive or pertinent negative responses have been documented in the HPI. ROS Other: All systems not noted in ROS Statement are negative. Past Medical History Past Medical History: Hyperlipidemia, Hypertension Additional Past Medical History / Comment(s): cirrhosis GI Bleed History of Any Multi-Drug Resistant Organisms: None Reported Past Surgical History: No Surgical Hx Reported Additional Past Surgical History / Comment(s): paracentesis 1 month ago over 2 liters taken off Past Anesthesia/Blood Transfusion Reactions: No Reported Reaction Past Psychological History: Anxiety, Bipolar, Depression, Schizophrenia Smoking Status: Current every day smoker Past Alcohol Use History: Rare Past Drug Use History: None Reported - Past Family History Mother Family Medical History: Congestive Heart Failure (CHF), Myocardial Infarction ([place]) Father Family Medical History: Diabetes Mellitus General Exam - General Exam Comments Initial Comments: General: The patient is awake and alert, in no distress, and does not appear acutely ill. Eye: +3mm pupils are equal, round and reactive to light, extra-ocular movements are intact. No nystagmus. There is normal conjunctiva bilaterally. No signs of icterus. Ears, nose, mouth and throat: There are moist mucous membranes and no oral lesions. Neck: The neck is supple, there is no tenderness or JVD. Cardiovascular: There is a regular rate and rhythm. No murmur, rub or gallop is appreciated. Respiratory: Lungs have expiratoyr wheeze and rhoncih diffusely. respirations are non-labored, breath sounds are equal. No stridor, rales No abdominal breathing or retractions Gastrointestinal: Soft, very distended, skin shiney non-tender abdomen without masses or organomegaly noted. There is no rebound or guarding present. No CVA tenderness. Musculoskeletal: Normal ROM, no tenderness. Strength 5/5. Sensation intact. Radial pulses equal bilaterally 2+. Neurological: A&O x 3. CN II-XII intact grossly, There are no obvious motor or sensory deficits. Coordination appears grossly intact. Speech is normal. Skin: Skin is warm and dry and no rashes or lesions are noted. Psychiatric: Cooperative, appropriate mood & affect, normal judgment. Limitations: no limitations Course Vital Signs 09/13/19 09/13/19 09/13/19 11:18 11:19 11:28 Temperature 98.6 F Pulse Rate 92 Respiratory 20 20 Rate Blood Pressure 157/93 O2 Sat by Pulse 97 98 Oximetry 09/13/19 09/13/19 09/13/19 11:30 12:58 14:52 Temperature Pulse Rate 103 H 98 101 H Respiratory 19 17 18 Rate Blood Pressure 157/93 167/98 164/83 O2 Sat by Pulse 99 97 98 Oximetry 09/13/19 15:09 Temperature 98.6 F Pulse Rate 101 H Respiratory 18 Rate Blood Pressure 164/83 O2 Sat by Pulse 98 Oximetry Medical Decision Making - Medical Decision Making 59yo male presenting today for chief complaint of abdominal distention causing shortness of breath. Significant distention history of cirrhosis with ascites. Patient missed 3 paracentesis. Patient will be admitted for paracentesis as I contacted both interventional radiology and interventional radiology scheduling stating that he cannot schedule patient in the emergency department today. Patient otherwise has negative troponin EKG reveals QT prolongation otherwise no acute findings. Chest x-ray revealed no acute findings. Patient states that his shortness of breath is due to the distention. Patient does have coarse lung sounds with expiratory wheezes and rhonchi. Consistent with COPD and he received 2 breathing treatments prior to arrival-in addition to solumedrol. Patient scheduled breathing treatments and steroids ordered. Dr. Dorman is agreeable to admission. Dr Beatty accepted admission and evaluated patient in ER. Agreeable to care plan. - Lab Data Result diagrams: 09/13/19 11:37 09/13/19 11:37 Lab Results 09/13/19 09/13/19 09/13/19 Range/Units 11:37 11:37 11:37 WBC 3.4 L (3.8-10.6) k/uL RBC 4.31 (4.30-5.90) m/uL Hgb 11.4 L (13.0-17.5) gm/dL Hct 34.8 L (39.0-53.0) % MCV 80.9 (80.0-100.0) fL MCH 26.4 (25.0-35.0) pg MCHC 32.6 (31.0-37.0) g/dL RDW 17.9 H (11.5-15.5) % Plt Count 110 L (150-450) k/uL Neutrophils % 66 % Lymphocytes % 20 % Monocytes % 7 % Eosinophils % 4 % Basophils % 0 % Neutrophils # 2.3 (1.3-7.7) k/uL Lymphocytes # 0.7 L (1.0-4.8) k/uL Monocytes # 0.2 (0-1.0) k/uL Eosinophils # 0.1 (0-0.7) k/uL Basophils # 0.0 (0-0.2) k/uL Hypochromasia Slight Anisocytosis Slight Microcytosis Slight PT 11.7 (9.0-12.0) sec INR 1.1 (<1.2) APTT 21.0 L (22.0-30.0) sec Sodium 137 (137-145) mmol/L Potassium 4.1 (3.5-5.1) mmol/L Chloride 106 (98-107) mmol/L Carbon Dioxide 22 (22-30) mmol/L Anion Gap 9 mmol/L BUN 13 (9-20) mg/dL Creatinine 0.50 L (0.66-1.25) mg/dL Est GFR (CKD-EPI)AfAm >90 (>60 ml/min/1.73 sqM) Est GFR (CKD-EPI)NonAf >90 (>60 ml/min/1.73 sqM) Glucose 100 H (74-99) mg/dL Calcium 8.2 L (8.4-10.2) mg/dL Total Bilirubin 1.9 H (0.2-1.3) mg/dL AST 45 (17-59) U/L ALT 17 (4-49) U/L Alkaline Phosphatase 97 (38-126) U/L Troponin I (0.000-0.034) ng/mL Total Protein 7.4 (6.3-8.2) g/dL Albumin 3.3 L (3.5-5.0) g/dL 09/13/19 Range/Units 11:37 WBC (3.8-10.6) k/uL RBC (4.30-5.90) m/uL Hgb (13.0-17.5) gm/dL Hct (39.0-53.0) % MCV (80.0-100.0) fL MCH (25.0-35.0) pg MCHC (31.0-37.0) g/dL RDW (11.5-15.5) % Plt Count (150-450) k/uL Neutrophils % % Lymphocytes % % Monocytes % % Eosinophils % % Basophils % % Neutrophils # (1.3-7.7) k/uL Lymphocytes # (1.0-4.8) k/uL Monocytes # (0-1.0) k/uL Eosinophils # (0-0.7) k/uL Basophils # (0-0.2) k/uL Hypochromasia Anisocytosis Microcytosis PT (9.0-12.0) sec INR (<1.2) APTT (22.0-30.0) sec Sodium (137-145) mmol/L Potassium (3.5-5.1) mmol/L Chloride (98-107) mmol/L Carbon Dioxide (22-30) mmol/L Anion Gap mmol/L BUN (9-20) mg/dL Creatinine (0.66-1.25) mg/dL Est GFR (CKD-EPI)AfAm (>60 ml/min/1.73 sqM) Est GFR (CKD-EPI)NonAf (>60 ml/min/1.73 sqM) Glucose (74-99) mg/dL Calcium (8.4-10.2) mg/dL Total Bilirubin (0.2-1.3) mg/dL AST (17-59) U/L ALT (4-49) U/L Alkaline Phosphatase (38-126) U/L Troponin I <0.012 (0.000-0.034) ng/mL Total Protein (6.3-8.2) g/dL Albumin (3.5-5.0) g/dL - EKG Data EKG Comments: Ventricular rate 95 bpm, [place] interval 132 ms, QRS duration 102 ms, QT/QTC 398/500 ms. QT is noted to be prolonged-- no ST elevation or depression. Disposition Clinical Impression: COPD exacerbation, Ascites, Abdominal pain, Abdominal distention, SOB (shortness of breath) Disposition: ADMITTED IP TO THIS [facility] Condition: Stable Is patient prescribed a controlled substance at d/c from ED?: No Time of Disposition: 13:03 Decision to Admit Reason: Admit from EC Decision Date: 09/13/19 Decision Time: 13:03
[2019-09-13] MEDS ORDERED: IPRATROPIUM-ALBUTEROL 3 ML NEB INHALATION PRN (12:58)
--- NOTE | 2019-09-13 14:57 | P.HPIM ---
History of Present Illness 9-year-old male came in because of abdominal distention shortness of breath secondary to severe abdominal distention patient does have history of alcoholic cirrhosis and quit alcohol years ago because his cirrhosis can use to smoke. Patient smokes about a pack per day. Patient missed his scheduled paracentesis last week patient given significant abdominal distention any fever denied any abdominal tenderness denied nausea vomiting. Is comparing of cough with a greenish sputum production. Patient will undergo ultrasound-guided guided paracentesis tomorrow Review of Systems REVIEW OF SYSTEMS: CONSTITUTIONAL: No fever, no malaise, no fatigue. HEENT: No recent visual problems or hearing problems. Denied any sore throat. CARDIOVASCULAR: No chest pain, orthopnea, PND, no palpitations, no syncope. PULMONARY: No shortness of breath, no cough, no hemoptysis. GASTROINTESTINAL: As mentioned in HPI NEUROLOGICAL: No headaches, no weakness, no numbness. HEMATOLOGICAL: Denies any bleeding or petechiae. GENITOURINARY: Denies any burning micturition, frequency, or urgency. MUSCULOSKELETAL/RHEUMATOLOGICAL: Denies any joint pain, swelling, or any muscle pain. ENDOCRINE: Denies any polyuria or polydipsia. The rest of the 14-point review of systems is negative. Past Medical History Past Medical History: Hyperlipidemia, Hypertension Additional Past Medical History / Comment(s): cirrhosis GI Bleed History of Any Multi-Drug Resistant Organisms: None Reported Past Surgical History: No Surgical Hx Reported Additional Past Surgical History / Comment(s): paracentesis 1 month ago over 2 liters taken off Past Anesthesia/Blood Transfusion Reactions: No Reported Reaction Past Psychological History: Anxiety, Bipolar, Depression, Schizophrenia Smoking Status: Current every day smoker Past Alcohol Use History: Rare Past Drug Use History: None Reported - Past Family History Mother Family Medical History: Congestive Heart Failure (CHF), Myocardial Infarction (IA) Father Family Medical History: Diabetes Mellitus Medications and Allergies Home Medications Medication Instructions Recorded Confirmed Type Furosemide [Lasix] 40 mg PO DAILY 04/20/19 09/13/19 History Spironolactone 100 mg PO DAILY 04/20/19 09/13/19 History Allergies Allergy/AdvReac Type Severity Reaction Status Date / Time No Known Allergies Allergy Verified 09/13/19 13:16 Physical Exam Vitals: Vital Signs Temp Pulse Resp BP Pulse Ox 09/13/19 12:58 98 17 167/98 97 01/13/20 11:30 103 H 19 157/93 99 09/13/19 11:28 20 09/13/19 11:19 98.6 F 92 20 157/93 98 09/13/19 11:18 97 Intake and Output 09/12/19 09/13/19 09/13/19 22:59 06:59 14:59 Other: Weight 81.647 kg PHYSICAL EXAMINATION: GENERAL: The patient is alert and oriented x3, not in any acute distress. Well developed, well nourished. HEENT: Pupils are round and equally reacting to light. EOMI. No scleral icterus. No conjunctival pallor. Normocephalic, atraumatic. No pharyngeal erythema. No thyromegaly. CARDIOVASCULAR: S1 and S2 present. No murmurs, rubs, or gallops. PULMONARY: Chest is clear to auscultation, no wheezing or crackles. ABDOMEN: Significantly distended fluid thrill has some medical hernia does have upper for signs of cirrhosis MUSCULOSKELETAL: No joint swelling or deformity. EXTREMITIES: No cyanosis, clubbing, or pedal edema. NEUROLOGICAL: Gross neurological examination did not reveal any focal deficits. SKIN: No rashes. Results CBC & Chem 7: 09/13/19 11:37 09/13/19 11:37 Labs: Abnormal Lab Results - Last 24 Hours (Table) 09/13/19 09/13/19 09/13/19 Range/Units 11:37 11:37 11:37 WBC 3.4 L (3.8-10.6) k/uL Hgb 11.4 L (13.0-17.5) gm/dL Hct 34.8 L (39.0-53.0) % RDW 17.9 H (11.5-15.5) % Plt Count 110 L (150-450) k/uL Lymphocytes # 0.7 L (1.0-4.8) k/uL APTT 21.0 L (22.0-30.0) sec Creatinine 0.50 L (0.66-1.25) mg/dL Glucose 100 H (74-99) mg/dL Calcium 8.2 L (8.4-10.2) mg/dL Total Bilirubin 1.9 H (0.2-1.3) mg/dL Albumin 3.3 L (3.5-5.0) g/dL Assessment and Plan Plan: Shortness of breath: Secondary to abdominal distention patient doesn't have any signs or symptoms of peritonitis patient will need therapeutic paracentesis. There may be a competent of COPD exacerbation as well -COPD with mild acute exacerbation patient will be started on in his steroids inhalational treatments patient will be started and oxygen for bronchitis nicotine cessation counseling was provided -Continued nicotine use -Hyperlipidemia -Bipolar disorder
[2019-09-13] MEDS: IPRATROPIUM-ALBUTEROL 3 ML NEB INHALATION SCH ×2 (15:38→19:59)
[2019-09-13] MEDS: FUROSEMIDE 10 MG/ML 4 ML VIAL IV SCH (15:46)
[2019-09-13] MEDS: HEPARIN SODIUM,PORCINE 5,000 UNIT/ML 1 ML VIAL SQ SCH (15:46)
[2019-09-13] MEDS: ALBUMIN HUMAN 25% 50 ML in EMPTY BAG 1 BAG IVPB SCH ×4 (17:09→17:48)
--- NOTE | 2019-09-13 19:47 | US ---
EXAMINATION TYPE: US paracentesis abd w/image DATE OF EXAM: 09/13/2019 COMPARISON: NONE HISTORY: Ascites. PROCEDURE: Maximal barrier technique was utilized. The skin overlying a suitable pocket of fluid was localized with ultrasound and the overlying skin was prepped and draped. Ultrasound was utilized with sterile technique. Lidocaine was used for local anesthesia and a skin kassy made with a scalpel. Catheter was advanced under direct ultrasound guidance into a suitable pocket of fluid and approximately 16.4 lite rs of serous fluid were removed. Catheter was withdrawn and hemostasis achieved. There is no immedi ate complication; the patient is discharged in stable condition. IMPRESSION: STATUS POST ULTRASOUND GUIDED PARACENTESIS FOR PALLIATION OF ASCITES. THIS PROCEDURE WA S PERFORMED BY THE UNDERSIGNED.
[2019-09-13] MEDS: BUDESONIDE 0.5 MG/2 ML NEBU INHALATION SCH (19:59)
[2019-09-13] MEDS: FAMOTIDINE 20 MG TAB PO SCH (21:38)
[2019-09-13] MEDS: DOXYCYCLINE 100 MG CAP PO SCH (21:39)
[2019-09-14] MEDS: HEPARIN SODIUM,PORCINE 5,000 UNIT/ML 1 ML VIAL SQ SCH ×2 (00:08→08:22)
[2019-09-14] MEDS: FUROSEMIDE 10 MG/ML 4 ML VIAL IV SCH ×2 (00:09→08:22)
[2019-09-14 05:02] VITALS: RESP 18
[2019-09-14] MEDS: BUDESONIDE 0.5 MG/2 ML NEBU INHALATION SCH (07:04)
[2019-09-14] MEDS: IPRATROPIUM-ALBUTEROL 3 ML NEB INHALATION SCH ×3 (07:04→15:28)
[2019-09-14] MEDS: DOXYCYCLINE 100 MG CAP PO SCH (08:22)
[2019-09-14] MEDS: FAMOTIDINE 20 MG TAB PO SCH (08:22)
[2019-09-14 08:58] LABS: Anisocytosis Slight; HCT 29.6 % (39.0-53.0); Hypochromasia Slight; MCH 26.3 pg (25.0-35.0); MCV 82.2 fL (80.0-100.0); Mean Platelet Volume 8.3; RBC 3.61 m/uL (4.30-5.90); RDW 18.1 % (11.5-15.5)
[2019-09-14 09:00] LABS: HGB 9.5 gm/dL (13.0-17.5)
[2019-09-14] MEDS ORDERED: predniSONE 20 MG TAB PO SCH (09:00)
[2019-09-14 09:14] LABS: ALT 14 U/L (4-49); AST 36 U/L (17-59); African American GFR (CKD) >90 (>60 ml/min/1.73 sqM); Albumin 2.8 g/dL (3.5-5.0); Alkaline Phosphatase 60 U/L (38-126); Anion Gap 6 mmol/L; Blood Urea Nitrogen 18 mg/dL (9-20); Calcium 7.9 mg/dL (8.4-10.2); Carbon Dioxide 28 mmol/L (22-30); Chloride 104 mmol/L (98-107); Glucose 184 mg/dL (74-99); Non-African American GFR(CKD) >90 (>60 ml/min/1.73 sqM); Potassium 3.7 mmol/L (3.5-5.1); Sodium 138 mmol/L (137-145)
[2019-09-14 11:12] LABS: Platelet Count 96 k/uL (150-450)
[2019-09-14 15:40] VITALS: BP 87/35; PULSE 78; TEMP 98
--- NOTE | 2019-09-14 16:17 | P.DS ---
Providers Date of admission: 09/13/19 13:07 Expected date of discharge: 09/14/19 Attending physician: Carlotta Galindo Consults: 09/13/19 12:58 Consult Physician Routine Consulting Provider: Parish Berger Reason/Comments: paracentesis, ascites from cirrhosis of liver Do you want consulting provider notified?: Yes Primary care physician: Jay Winn, Hospital Course: Final diagnosis -Shortness of breath: Secondary to abdominal distention patient doesn't have any signs or symptoms of peritonitis patient will need therapeutic paracentesis. -COPD with mild acute exacerbation -Continued nicotine use -Hyperlipidemia -Bipolar disorder Discharge disposition Patient is being discharged in a stable condition with guarded prognosis to home and will follow-up with primary care provider upon discharge and also Lio Mohave LITZY Coles to schedule his weekly paracentesis visits at [facility] to accommodate traveling and minimized missed appointments. Total time taken is 35 minutes. History of present illness 59-year-old male came in because of abdominal distention shortness of breath secondary to severe abdominal distention patient does have history of alcoholic cirrhosis and quit alcohol years ago because his cirrhosis can use to smoke. Patient smokes about a pack per day. Patient missed his scheduled paracentesis last week patient given significant abdominal distention any fever denied any abdominal tenderness denied nausea vomiting. Is comparing of cough with a greenish sputum production. Patient will undergo ultrasound-guided guided paracentesis tomorrow. During hospitalization patient underwent paracentesis with removal 16.4 L and was given a dose of albumin. Patient will continue with his Lasix and increase it to 40 mg twice daily along with his 100 mg of Aldactone daily. Patient was provided prescriptions for inhalers and steroids. Discussed with the patient at length about avoiding all tobacco use. Patient verbalized understanding. Patient follow-up with Dr. Winn his primary care provider this week as he is leaving the practice and moving out of state at the end of this month. Patient will need to establish with a new primary care provider. Currently patient denies any chest pain, shortness of breath, or palpitations. Patient is afebrile. Patient denies any nausea or vomiting and is tolerating diet. Patient's abdomen continues to be distended but is soft and nontender. On exam vital signs are stable. Cardio S1, S2 are present. Respiratory system shows diminished breath sounds at the bases with some mild expiratory wheezing noted on exam. Abdomen is soft, distended, and nontender. Nervous system shows no focal deficits. Please refer to medication reconciliation sheet for a list of medications. Patient Condition at Discharge: Stable Plan - Discharge Summary Discharge Rx Participant: No New Discharge Prescriptions: New Fluticasone/Salmeterol [Advair 250-50 Diskus] 1 inhalation PO BID #1 inhaler Cefuroxime Axetil [Ceftin] 500 mg PO BID 4 Days #8 tab Famotidine [Pepcid] 20 mg PO BID #30 tablet predniSONE 10 mg PO DAILY #30 tab Tiotropium Bruni [Spiriva] 1 cap INHALATION DAILY #1 device Albuterol Inhaler [Ventolin Hfa Inhaler] 1 - 2 puff INHALATION Q6HR PRN #1 inhaler PRN Reason: Shortness Of Breath Or Wheezing Changed Furosemide [Lasix] 40 mg PO BID #30 tab No Action Spironolactone 100 mg PO DAILY Discharge Medication List Spironolactone 100 mg PO DAILY 04/20/19 [History] Albuterol Inhaler [Ventolin Hfa Inhaler] 1 - 2 puff INHALATION Q6HR PRN #1 inhaler 09/14/19 [Rx] Cefuroxime Axetil [Ceftin] 500 mg PO BID 4 Days #8 tab 09/14/19 [Rx] Famotidine [Pepcid] 20 mg PO BID #30 tablet 09/14/19 [Rx] Fluticasone/Salmeterol [Advair 250-50 Diskus] 1 inhalation PO BID #1 inhaler 09/14/19 [Rx] Furosemide [Lasix] 40 mg PO BID #30 tab 09/14/19 [Rx] Tiotropium Bruni [Spiriva] 1 cap INHALATION DAILY #1 device 09/14/19 [Rx] predniSONE 10 mg PO DAILY #30 tab 09/14/19 [Rx] Follow up Appointment(s)/Referral(s): Jay Winn DO [Primary Care Provider] - 09/15/19 3:00 pm Reed Coles MD [REFERRING] - 1 Week (Please call office to set up follow up appointment) Activity/Diet/Wound Care/Special Instructions: Please follow up with your Dr. Coles and have him schedule your paracentesis at [facility] as soon as possible. Follow-up with primary care provider upon discharge and establish with new primary care provider as this one is moving out of state as soon as possible Continue current diet Continue with inhalers Continue with antibiotics until finished Continue with prednisone taper Continue to avoid tobacco use Discharge Disposition: HOME SELF-CARE
== END 2019-09-14 17:42 | disposition home or self-care (01) ==
LOC: EC 11:09 → 6NMEDSUR 13:07
PROVIDERS: ADMIT Internal Medicine; ATTEND Internal Medicine
DX: K70.31 Alcoholic cirrhosis of liver with ascites (principal); F10.21 Alcohol dependence, in remission; F17.210 Nicotine dependence, cigarettes, uncomplicated; J44.1 Chronic obstructive pulmonary disease with (acute) exacerbation; I10 Essential (primary) hypertension; E78.5 Hyperlipidemia, unspecified; F20.9 Schizophrenia, unspecified; F31.9 Bipolar disorder, unspecified; F41.9 Anxiety disorder, unspecified; Z79.899 Other long term (current) drug therapy; Z83.3 Family history of diabetes mellitus; Z82.49 Family history of ischemic heart disease and other diseases of the circulatory system
CPT/HCPCS: 96376; 96372; 96374; 99285; 36415; 94640 ×4; 93005; 80053 ×2; 84484; 85025; 85027; 85610; 85730; 71046; 49083; G0378 ×2; J1644; J1940 ×2; P9047

== ENCOUNTER 2020-05-09 15:01 | Observation (INO) | payer MEDICARE, OTHER ==
[2020-05-09] MEDS ORDERED: FUROSEMIDE 10 MG/ML 4 ML VIAL IV STA (15:15)
[2020-05-09] MEDS ORDERED: carvediloL 3.125 MG TAB PO STA (15:15)
[2020-05-09] MEDS ORDERED: LORazepam 2 MG/ML INJ IV PRN ×3 (15:16)
[2020-05-09] MEDS ORDERED: THIAMINE 100 MG/ML 2 ML VIAL IM STA (15:16)
[2020-05-09] MEDS ORDERED: IPRATROPIUM-ALBUTEROL 3 ML NEB INHALATION STA (15:32)
[2020-05-09 15:46] LABS: Anisocytosis Slight; Basophils % (A) 1 %; Eosinophils # (A) 0.1 k/uL (0-0.7); Eosinophils % (A) 3 %; HCT 47.2 % (39.0-53.0); HGB 15.3 gm/dL (13.0-17.5); Lymphocytes # (A) 0.8 k/uL (1.0-4.8); Lymphocytes % (A) 16 %; MCH 26.2 pg (25.0-35.0); MCHC 32.4 g/dL (31.0-37.0); Mean Platelet Volume 7.2; Monocytes # (A) 0.4 k/uL (0-1.0); Monocytes % (A) 9 %; Neutrophils # (A) 3.4 k/uL (1.3-7.7); Neutrophils % (A) 70 %; Platelet Count 179 k/uL (150-450); RBC 5.83 m/uL (4.30-5.90); RDW 17.1 % (11.5-15.5); WBC 4.8 k/uL (3.8-10.6)
[2020-05-09 15:55] LABS: ALT 15 U/L (4-49); AST 40 U/L (17-59); African American GFR (CKD) >90 (>60 ml/min/1.73 sqM); Albumin 3.7 g/dL (3.5-5.0); Alkaline Phosphatase 85 U/L (38-126); Anion Gap 9 mmol/L; Blood Urea Nitrogen 19 mg/dL (9-20); Calcium 8.8 mg/dL (8.4-10.2); Carbon Dioxide 24 mmol/L (22-30); Chloride 100 mmol/L (98-107); Glucose 106 mg/dL (74-99); Magnesium 2.2 mg/dL (1.6-2.3); Non-African American GFR(CKD) >90 (>60 ml/min/1.73 sqM); Phosphorus 4.3 mg/dL (2.5-4.5); Potassium 4.5 mmol/L (3.5-5.1); Sodium 133 mmol/L (137-145); Total Bilirubin 1.3 mg/dL (0.2-1.3); Total Protein 7.5 g/dL (6.3-8.2)
[2020-05-09] MEDS ORDERED: NALOXONE 0.4 MG/ML 1 ML VIAL IV PRN (16:09)
--- NOTE | 2020-05-09 16:14 | ED ---
SOB HPI - General Source: patient Mode of arrival: EMS Limitations: no limitations <Andreina Gordon - Last Filed: 05/09/20 16:16> <Lincoln Rios - Last Filed: 05/09/20 17:49> - General Chief Complaint: Shortness of Breath Stated Complaint: Abd Pain Time Seen by Provider: 05/09/20 15:05 - History of Present Illness Initial Comments: 59-year-old male presenting today for chief complaint of shortness of breath, abdominal distention. Patient states that he has had increasing shortness of breath which chiefly situated to his ascites he states he has not had a paracentesis in 3 weeks and he usually goes weekly. Patient states he is unable to get transportation to [facility] where he usually visits. Patient denies any fevers he states he has had slight cough with sputum production which she describes as clear. He denies any chest pain he does a nausea vomiting top pain arm pain he denies any diarrhea vomiting. Patient denies unlateral leg swelling or hemoptysis. Patient has no additional com plaints. Upon arrival patient appears well there is no signs of acute distress. (Andreina Gordon) - Related Data Home Medications Medication Instructions Recorded Confirmed Spironolactone 100 mg PO DAILY 04/20/19 05/09/20 Carvedilol [Coreg] 3.125 mg PO BID 09/29/19 05/09/20 Famotidine [Pepcid] 20 mg PO HS 09/29/19 05/09/20 Furosemide [Lasix] 40 mg PO DAILY 05/09/20 05/09/20 Melatonin 1 mg PO HS PRN 05/09/20 05/09/20 Allergies Allergy/AdvReac Type Severity Reaction Status Date / Time No Known Allergies Allergy Verified 05/09/20 16:33 Review of Systems ROS Other: All systems not noted in ROS Statement are negative. <Andreina Gordon - Last Filed: 05/09/20 16:16> ROS Other: All systems not noted in ROS Statement are negative. <Lincoln Rios - Last Filed: 05/09/20 17:49> ROS Statement: Those systems with pertinent positive or pertinent negative responses have been documented in the HPI. Past Medical History Past Medical History: Hyperlipidemia, Hypertension, Liver Disease Additional Past Medical History / Comment(s): Liver cirrhosis, ascities with prior paracentesises, lower GI bleed, chronic thrombocytopenia, chronic lower back pain. History of Any Multi-Drug Resistant Organisms: None Reported Past Surgical History: No Surgical Hx Reported Additional Past Surgical History / Comment(s): multiple paracentesis Past Anesthesia/Blood Transfusion Reactions: No Reported Reaction Past Psychological History: Anxiety, Bipolar, Depression, Schizophrenia Smoking Status: Current every day smoker Past Alcohol Use History: Abuse, Heavy, Rare Past Drug Use History: Marijuana - Past Family History Mother Family Medical History: Congestive Heart Failure (CHF), Myocardial Infarction (SD) Additional Family Medical History / Comment(s): Mother of a SD at the age of 56yrs. Father Family Medical History: Diabetes Mellitus Additional Family Medical History / Comment(s): Father at the age of 81 yrs of "natural causes" <HeidiAndreina Steele - Last Filed: 05/09/20 16:16> General Exam Limitations: no limitations <HeidiAndreina Ivette - Last Filed: 05/09/20 16:16> - General Exam Comments Initial Comments: General: The patient is awake and alert, in no distress Eye: Pupils are equal, round and reactive to light, extra-ocular movements are intact. No nystagmus. There is normal conjunctiva bilaterally. No signs of icterus. Ears, nose, mouth and throat: There are moist mucous membranes and no oral lesions. Neck: The neck is supple, there is no tenderness or JVD. Cardiovascular: There is a regular rate and rhythm. No murmur, rub or gallop is appreciated. Respiratory: LRespirations are non-labored, breath sounds are equal. No wheezes, stridor, rales. Some rhonchi noted. Productive cough. Gastrointestinal: Severely distended abdomen with eversion of umbilicus sec ondary to distention, diffuse mild tenderness to palpation of the abdomen without masses or organomegaly noted. There is no rebound or guarding present. Musculoskeletal: Normal ROM, no tenderness. Strength 5/5. Sensation intact. Radial and DP pulses equal bilaterally 2+. Neurological: A&O x 3. CN II-XII intact grossly, There are no obvious motor or sensory deficits. Coordination appears grossly intact. Speech is normal. Skin: Skin is warm and dry and no rashes or lesions are noted. No calf pain or unilateral leg swelling. Psychiatric: Cooperative, appropriate mood & affect, normal judgment. (Andreina Gordon) Course <Lincoln Rios - Last Filed: 05/09/20 17:49> Vital Signs 05/09/20 05/09/20 05/09/20 15:08 15:33 15:41 Temperature 97.7 F Pulse Rate 82 80 81 Respiratory 18 18 Rate Blood Pressure 172/122 135/91 O2 Sat by Pulse 99 97 Oximetry 05/09/20 05/09/20 15:46 16:11 Temperature Pulse Rate 76 87 Respiratory 18 Rate Blood Pressure 133/95 O2 Sat by Pulse 97 Oximetry - Reevaluation(s) Reevaluation #1: 05/09/20 17:48 PA supervision: I proceeded [id number] evaluation the patient. He did present with complaints of a progressively worsening distended abdomen over the past 3 weeks. His last paracentesis was 3 weeks ago. He was not able get it done since then. He complains of exertional dyspnea and shortness of breath. The patient will be admitted for inpatient evaluation and treatment. Abdomen is tense consistent with ascites. He has have protruding umbilicus additionally. Diminished breath sounds. I do agree with the assessment and plan. (Lincoln Rios) Medical Decision Making - Lab Data Result diagrams: 05/09/20 15:31 05/09/20 15:31 <Andreina Gordon - Last Filed: 05/09/20 16:16> - Lab Data Result diagrams: 05/09/20 15:31 05/09/20 15:31 <Lincoln Rios - Last Filed: 05/09/20 17:49> - Medical Decision Making 59yo cirrhosis patient. Obvious ascites. he feels is causing SOB from the pressure. No CP. Troponin (-). No fevers. Does not appear peritoneal. Patient CXR clear. Lungs rhochi. Given 1 duoneb, hx of COPD. Improvement of lung sounds. Patient case discussed with Dr. Rios who is agreeable to admission of patient. Attempted to contact on-call interventional radiologist [place] [phone] nor cell phone to discuss paracentesis. Nurse from [facility] called back stating procedure can be done tomorrow first thing in the morning. Patient agreeable to admission and care plan. (Andreina Gordon) - Lab Data Lab Results 0905/09/20 05/09/20 Range/Units 15:31 15:31 15:31 WBC 4.8 (3.8-10.6) k/uL RBC 5.83 (4.30-5.90) m/uL Hgb 15.3 (13.0-17.5) gm/dL Hct 47.2 (39.0-53.0) % MCV 81.0 (80.0-100.0) fL MCH 26.2 (25.0-35.0) pg MCHC 32.4 (31.0-37.0) g/dL RDW 17.1 H (11.5-15.5) % Plt Count 179 (150-450) k/uL Neutrophils % 70 % Lymphocytes % 16 % Monocytes % 9 % Eosinophils % 3 % Basophils % 1 % Neutrophils # 3.4 (1.3-7.7) k/uL Lymphocytes # 0.8 L (1.0-4.8) k/uL Monocytes # 0.4 (0-1.0) k/uL Eosinophils # 0.1 (0-0.7) k/uL Basophils # 0.0 (0-0.2) k/uL Anisocytosis Slight Sodium 133 L (137-145) mmol/L Potassium 4.5 (3.5-5.1) mmol/L Chloride 100 (98-107) mmol/L Carbon Dioxide 24 (22-30) mmol/L Anion Gap 9 mmol/L BUN 19 (9-20) mg/dL Creatinine 0.76 (0.66-1.25) mg/dL Est GFR (CKD-EPI)AfAm >90 (>60 ml/min/1.73 sqM) Est GFR (CKD-EPI)NonAf >90 (>60 ml/min/1.73 sqM) Glucose 106 H (74-99) mg/dL Calcium 8.8 (8.4-10.2) mg/dL Phosphorus 4.3 (2.5-4.5) mg/dL Magnesium 2.2 (1.6-2.3) mg/dL Total Bilirubin 1.3 (0.2-1.3) mg/dL AST 40 (17-59) U/L ALT 15 (4-49) U/L Alkaline Phosphatase 85 (38-126) U/L Troponin I <0.012 (0.000-0.034) ng/mL NT-Pro-B Natriuret Pep pg/mL Total Protein 7.5 (6.3-8.2) g/dL Albumin 3.7 (3.5-5.0) g/dL 05/09/20 Range/Units 15:31 WBC (3.8-10.6) k/uL RBC (4.30-5.90) m/uL Hgb (13.0-17.5) gm/dL Hct (39.0-53.0) % MCV (80.0-100.0) fL MCH (25.0-35.0) pg MCHC (31.0-37.0) g/dL RDW (11.5-15.5) % Plt Count (150-450) k/uL Neutrophils % % Lymphocytes % % Monocytes % % Eosinophils % % Basophils % % Neutrophils # (1.3-7.7) k/uL Lymphocytes # (1.0-4.8) k/uL Monocytes # (0-1.0) k/uL Eosinophils # (0-0.7) k/uL Basophils # (0-0.2) k/uL Anisocytosis Sodium (137-145) mmol/L Potassium (3.5-5.1) mmol/L Chloride (98-107) mmol/L Carbon Dioxide (22-30) mmol/L Anion Gap mmol/L BUN (9-20) mg/dL Creatinine (0.66-1.25) mg/dL Est GFR (CKD-EPI)AfAm (>60 ml/min/1.73 sqM) Est GFR (CKD-EPI)NonAf (>60 ml/min/1.73 sqM) Glucose (74-99) mg/dL Calcium (8.4-10.2) mg/dL Phosphorus (2.5-4.5) mg/dL Magnesium (1.6-2.3) mg/dL Total Bilirubin (0.2-1.3) mg/dL AST (17-59) U/L ALT (4-49) U/L Alkaline Phosphatase (38-126) U/L Troponin I (0.000-0.034) ng/mL NT-Pro-B Natriuret Pep 85 pg/mL Total Protein (6.3-8.2) g/dL Albumin (3.5-5.0) g/dL Disposition Is patient prescribed a controlled substance at d/c from ED?: No Time of Disposition: 16:14 Decision to Admit Reason: Admit from EC Decision Date: 05/09/20 Decision Time: 16:14 <Andreina Gordon - Last Filed: 05/09/20 16:16> <Lincoln Rios - Last Filed: 05/09/20 17:49> Clinical Impression: Ascites, Dyspnea, Cough Disposition: ADMITTED IP TO THIS HOSP Condition: Stable
--- NOTE | 2020-05-09 16:15 | XR ---
EXAMINATION TYPE: XR chest 2V DATE OF EXAM: 05/09/2020 COMPARISON: 09/13/2019 INDICATION: Short of breath TECHNIQUE: Frontal and lateral views of the chest are obtained. FINDINGS: The heart size is normal. The pulmonary vasculature is normal. The lungs are clear. IMPRESSION: 1. No acute pulmonary process.
[2020-05-09 17:12] LABS: INR 1.2 (<1.2); Prothrombin Time 11.9 sec (9.0-12.0)
[2020-05-09] MEDS: THIAMINE 100 MG TAB PO SCH (17:36)
[2020-05-10 08:33] VITALS: RESP 16
[2020-05-10] MEDS: THIAMINE 100 MG TAB PO SCH (08:50)
--- NOTE | 2020-05-10 13:17 | P.DS ---
Providers Date of admission: 05/09/20 15:59 Attending physician: Fe Butler Primary care physician: Stated None Hospital Course: Please refer to HPI for further details Patient Condition at Discharge: Stable Plan - Discharge Summary New Discharge Prescriptions: New Albuterol Inhaler [Ventolin Hfa Inhaler] 2 puff INHALATION RT-QID PRN #1 inhaler PRN Reason: Shortness Of Breath Or Wheezing Continue Spironolactone 100 mg PO DAILY Famotidine [Pepcid] 20 mg PO HS Carvedilol [Coreg] 3.125 mg PO BID Furosemide [Lasix] 40 mg PO DAILY Melatonin 1 mg PO HS PRN PRN Reason: Insomnia Discharge Medication List Spironolactone 100 mg PO DAILY 04/20/19 [History] Carvedilol [Coreg] 3.125 mg PO BID 09/29/19 [History] Famotidine [Pepcid] 20 mg PO HS 09/29/19 [History] Furosemide [Lasix] 40 mg PO DAILY 05/09/20 [History] Melatonin 1 mg PO HS PRN 05/09/20 [History] Albuterol Inhaler [Ventolin Hfa Inhaler] 2 puff INHALATION RT-QID PRN #1 inhaler 05/10/20 [Rx] Follow up Appointment(s)/Referral(s): Graciela Richard MD [STAFF PHYSICIAN] - 1 Week Destini Lance MD [STAFF PHYSICIAN] - 1 Week Discharge Disposition: HOME SELF-CARE
--- NOTE | 2020-05-10 13:17 | P.HPIM ---
History of Present Illness 59-year-old male presenting today for chief complaint of shortness of breath, abdominal distention. Patient states that he has had increasing shortness of breath which chiefly situated to his ascites he states he has not had a para centesis in 3 weeks and he usually goes weekly. Patient states he is unable to get transportation to [facility] where he usually visits. Patient denies any fevers he states he has had slight cough with sputum production which she describes as clear. He denies any chest pain he does a nausea vomiting top pain arm pain he denies any diarrhea vomiting. Patient denies unlateral leg swe lling or hemoptysis. Patient has no additional complaints. Upon arrival patient appears well there is no signs of acute distress. Patient underwent paracentesis today removed about 40 L because of which blood pressure has come down because of which will closely monitor him for an hour or more her do not believe patient will need albumin now. If his blood pressure can use to go down then we'll give him albumin. Patient was asked to hold off his diuretics tonight as well as Coreg. Patient looks like she still drinks alcohol he says he drinks little bit of alcohol extensive counseling regarding this was provided. Patient is medically stable will be discharged later today there is no evidence of spontaneous bacteria peritonitis clinically. Review of Systems REVIEW OF SYSTEMS: CONSTITUTIONAL: No fever, no malaise, no fatigue. HEENT: No recent visual problems or hearing problems. Denied any sore throat. CARDIOVASCULAR: No chest pain, orthopnea, PND, no palpitations, no syncope. PULMONARY: no cough, no hemoptysis. GASTROINTESTINAL: No diarrhea, no nausea, no vomiting, no abdominal pain. NEUROLOGICAL: No headaches, no weakness, no numbness. HEMATOLOGICAL: Denies any bleeding or petechiae. GENITOURINARY: Denies any burning micturition, frequency, or urgency. MUSCULOSKELETAL/RHEUMATOLOGICAL: Denies any joint pain, swelling, or any muscle pain. ENDOCRINE: Denies any polyuria or polydipsia. The rest of the 14-point review of systems is negative. Past Medical History Past Medical History: Hyperlipidemia, Hypertension, Liver Disease Additional Past Medical History / Comment(s): Liver cirrhosis, ascities with prior paracentesises, lower GI bleed, chronic thrombocytopenia, chronic lower back pain. History of Any Multi-Drug Resistant Organisms: None Reported Past Surgical History: No Surgical Hx Reported Additional Past Surgical History / Comment(s): multiple paracentesis Past Anesthesia/Blood Transfusion Reactions: No Reported Reaction Past Psychological History: Anxiety, Bipolar, Depression, Schizophrenia Additional Psychological History / Comment(s): Pt resides with family. He uses no assistive devices. He does not drive, he gets rides thru his medical insurance. Smoking Status: Current every day smoker Past Alcohol Use History: Abuse, Heavy, Rare Additional Past Alcohol Use History / Comment(s): Pt started smoking in 1973 and for the past year has cut down to 10 cigarettes a day. He used to smoke 2 ppd. 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 He states he now rarely drinks alcohol. Past Drug Use History: Marijuana Additional Drug Use History / Comment(s): Pt states he occasionally uses medical marijuana. - Past Family History Mother Family Medical History: Congestive Heart Failure (CHF), Myocardial Infarction ([place]) Additional Family Medical History / Comment(s): Mother of a [place] at the age of 56yrs. Father Family Medical History: Diabetes Mellitus Additional Family Medical History / Comment(s): Father at the age of 81 yrs of "natural causes" Medications and Allergies Home Medications Medication Instructions Recorded Confirmed Type Spironolactone 100 mg PO DAILY 04/20/19 05/09/20 History Carvedilol [Coreg] 3.125 mg PO BID 09/29/19 05/09/20 History Famotidine [Pepcid] 20 mg PO HS 09/29/19 05/09/20 History Furosemide [Lasix] 40 mg PO DAILY 05/09/20 05/09/20 History Melatonin 1 mg PO HS PRN 05/09/20 05/09/20 History Allergies Allergy/AdvReac Type Severity Reaction Status Date / Time No Known Allergies Allergy Verified 05/09/20 16:33 Physical Exam Vitals: Vital Signs Temp Pulse Pulse Resp BP BP Pulse Ox 05/10/20 12:05 16 05/10/20 12:04 74 16 114/64 96 05/10/20 11:34 78 16 134/66 98 05/10/20 11:15 76 16 138/66 97 05/10/20 11:05 75 16 143/69 97 05/10/20 10:55 75 16 152/77 98 05/10/20 10:45 82 16 144/77 94 L 05/10/20 10:35 77 16 137/73 97 05/10/20 10:26 78 16 140/77 97 05/10/20 10:15 79 16 140/81 97 05/10/20 10:06 82 16 154/79 98 05/10/20 09:55 82 16 171/95 98 05/10/20 09:46 84 16 170/101 98 05/10/20 09:08 82 16 171/97 98 05/10/20 09:00 16 05/10/20 08:33 98.1 F 83 16 160/80 95 05/10/20 03:00 98.4 F 82 18 162/100 97 05/09/20 21:00 99 F 90 18 126/80 98 05/09/20 17:38 97.9 F 94 16 165/76 95 05/09/20 16:11 87 18 133/95 97 05/09/20 15:46 76 05/09/20 15:41 81 05/09/20 15:33 80 18 135/91 97 05/09/20 15:08 97.7 F 82 18 172/122 99 Intake and Output 05/09/20 05/10/20 05/10/20 22:59 06:59 14:59 Intake Total 300 200 Balance 300 200 Intake: Oral 300 200 Other: Voiding Method Toilet Toilet # Voids 1 1 1 Weight 81.7 kg PHYSICAL EXAMINATION: GENERAL: The patient is alert and oriented x3, not in any acute distress. Well developed, well nourished. Patient looks really price HEENT: Pupils are round and equally reacting to light. EOMI. No scleral icterus. No conjunctival pallor. Normocephalic, atraumatic. No pharyngeal erythema. No thyromegaly. CARDIOVASCULAR: S1 and S2 present. No murmurs, rubs, or gallops. PULMONARY: Chest is clear to auscultation, no wheezing or crackles. ABDOMEN: Soft, minimally distended even after 40 L removal and still has significant arthritis or shifting dullness nondistended, normoactive bowel sounds. MUSCULOSKELETAL: No joint swelling or deformity. EXTREMITIES: No cyanosis, clubbing, or pedal edema. NEUROLOGICAL: Gross neurological examination did not reveal any focal deficits. SKIN: No rashes. Results CBC & Chem 7: 05/09/20 15:31 05/09/20 15:31 Labs: Abnormal Lab Results - Last 24 Hours (Table) 05/09/20 05/09/20 05/09/20 Range/Units 15:31 15:31 17:00 RDW 17.1 H (11.5-15.5) % Lymphocytes # 0.8 L (1.0-4.8) k/uL INR 1.2 H (<1.2) Sodium 133 L (137-145) mmol/L Glucose 106 H (74-99) mg/dL Thrombosis Risk Factor Assmnt - Choose All That Apply Each Factor Represents 1 point: Abnormal pulmonary function (COPD), Age 41-60 years Other Risk Factors: No Other congenital or acquired thrombophilia - If yes, enter type in comment: No Thrombosis Risk Factor Assessment Total Risk Factor Score: 2 Thrombosis Risk Factor Assessment Level: Low Risk Assessment and Plan Plan: -Short of breath and the sinusitis: Patient has a severe alcoholic cirrhosis removed about 14 L therapeutic paracentesis no evidence was found is that peritonitis will be discharged patient blood pressure is normal but the low normal will monitor him 1 more hour. Patient blood pressure starts going down will give him albumin and otherwise I do not believe there is any benefit in giving him albumin patient is asked to hold off on diuretics and the beta linda tonight. -Continued alcohol use although patient says he only drinks minimally patient does not believe he'll have withdrawals patient will be discharged later today after extensive counseling -Hyperlipidemia -Hypertension -Depression -Continued nicotine use: Counseling was provided, patient probably has COPD has mild wheezing early discharge him on albuterol
[2020-05-10 14:45] VITALS: BP 123/65; PULSE 80; TEMP 97.8
--- NOTE | 2020-05-10 15:21 | US ---
EXAMINATION TYPE: US paracentesis abd w/image DATE OF EXAM: 05/10/2020 CLINICAL HISTORY: Ascites COMPARISON: Ultrasound paracentesis 09/13/2019 SENIOR HRIS ANALYST: Dr. Holli Paez PROCEDURE: Preprocedure preliminary ultrasound imaging demonstrates large volume ascites. The procedure was discussed with the patient. The risks, complications, benefits, and alternatives we re discussed and any questions were answered. Informed consent was obtained. The patient was placed s upine on the ultrasound table and prepped and draped in the usual sterile fashion. All elements of maximal barrier technique were utilized. Under ultrasound guidance, access into the right lower quadrant was obtained with a 5 [place] one-step centesis catheter. Approximately 14 liters of clear serous fluid was removed. Catheter was removed and sterile bandage w as applied. The patient was stable throughout the procedure and remained stable upon discharge from [facility]. IMPRESSION: Successful ultrasound-guided paracentesis, with removal of 14 liters of clear serous fluid.
== END 2020-05-10 16:35 | disposition home or self-care (01) ==
LOC: EC 15:01 → 1SOBS 15:59
PROVIDERS: ADMIT Hospitalist; ATTEND Hospitalist
DX: K70.31 Alcoholic cirrhosis of liver with ascites (principal); E78.5 Hyperlipidemia, unspecified; F17.210 Nicotine dependence, cigarettes, uncomplicated; F20.9 Schizophrenia, unspecified; F31.9 Bipolar disorder, unspecified; F41.9 Anxiety disorder, unspecified; I10 Essential (primary) hypertension; J44.9 Chronic obstructive pulmonary disease, unspecified; Z79.899 Other long term (current) drug therapy; Z82.49 Family history of ischemic heart disease and other diseases of the circulatory system; Z83.3 Family history of diabetes mellitus
CPT/HCPCS: 96372; 96374; 99285; 36415; 94640; 93005; 83880; 80053; 83735; 84100; 84484; 85025; 85610; 71046; 49083; G0378 ×2; J1940; J3411

== ENCOUNTER 2020-07-04 12:34 | Day surgery (SDC) | payer MEDICARE, OTHER ==
[2020-07-04 13:11] LABS: Mean Platelet Volume 6.9; Platelet Count 176 k/uL (150-450)
[2020-07-04 13:17] VITALS: TEMP 97.9
[2020-07-04 13:22] LABS: African American GFR (CKD) >90 (>60 ml/min/1.73 sqM); Non-African American GFR(CKD) >90 (>60 ml/min/1.73 sqM)
[2020-07-04 13:27] LABS: INR 1.1 (<1.2); Prothrombin Time 11.5 sec (9.0-12.0)
[2020-07-04] MEDS: ALBUMIN HUMAN 25% 50 ML in EMPTY BAG 1 BAG IVPB SCH ×4 (13:30→14:51)
--- NOTE | 2020-07-04 16:37 | US ---
EXAMINATION TYPE: US paracentesis abd w/image DATE OF EXAM: 07/04/2020 COMPARISON: NONE HISTORY: Ascites. PROCEDURE: Maximal barrier technique was utilized. The skin overlying a suitable pocket of fluid was localized with ultrasound and the overlying skin was prepped and draped. Ultrasound was utilized with sterile technique. Lidocaine was used for local anesthesia and a skin kassy made with a scalpel. Catheter was advanced under direct ultrasound guidance into a suitable pocket of fluid and approximately 14.5 lite rs of serous fluid were removed. Catheter was withdrawn and hemostasis achieved. There is no immedi ate complication; the patient is discharged in stable condition. IMPRESSION: STATUS POST ULTRASOUND GUIDED PARACENTESIS FOR PALLIATION OF ASCITES. THIS PROCEDURE WA S PERFORMED BY THE UNDERSIGNED.
[2020-07-04 17:20] VITALS: BP 131/77; PULSE 82; RESP 18
== END 2020-07-04 16:40 | disposition home or self-care (01) ==
LOC: RADPROMAIN 12:34
PROVIDERS: ATTEND Internal Medicine
DX: R18.8 Other ascites (principal)
CPT/HCPCS: 49083; 82565; 85049; 85610; 36415; P9047

== ENCOUNTER 2020-07-19 12:24 | Day surgery (SDC) | payer MEDICARE, OTHER ==
[2020-07-19 12:56] LABS: Mean Platelet Volume 7.1; Platelet Count 155 k/uL (150-450)
[2020-07-19 13:05] VITALS: TEMP 97.6
[2020-07-19 13:06] LABS: African American GFR (CKD) >90 (>60 ml/min/1.73 sqM); Non-African American GFR(CKD) >90 (>60 ml/min/1.73 sqM)
[2020-07-19 13:07] LABS: INR 1.1 (<1.2); Prothrombin Time 11.2 sec (9.0-12.0)
[2020-07-19] MEDS: ALBUMIN HUMAN 25% 50 ML in EMPTY BAG 1 BAG IVPB SCH ×4 (13:55→14:41)
[2020-07-19 15:22] VITALS: PULSE 77; RESP 16
[2020-07-19 15:42] VITALS: BP 132/63
--- NOTE | 2020-07-19 18:10 | US ---
EXAMINATION TYPE: US paracentesis abd w/image DATE OF EXAM: 07/19/2020 COMPARISON: NONE HISTORY: Ascites. PROCEDURE: Maximal barrier technique was utilized. The skin overlying a suitable pocket of fluid was localized with ultrasound and the overlying skin was prepped and draped. Ultrasound was utilized with sterile technique. Lidocaine was used for local anesthesia and a skin kassy made with a scalpel. Catheter was advanced under direct ultrasound guidance into a suitable pocket of fluid and approximately 18 liters of serous fluid were removed. Catheter was withdrawn and hemostasis achieved. There is no immediat e complication; the patient is discharged in stable condition. IMPRESSION: STATUS POST ULTRASOUND GUIDED PARACENTESIS FOR PALLIATION OF ASCITES. THIS PROCEDURE WA S PERFORMED BY THE UNDERSIGNED.
== END 2020-07-19 16:00 | disposition home or self-care (01) ==
LOC: RADPROMAIN 12:24
PROVIDERS: ATTEND Internal Medicine
DX: R18.8 Other ascites (principal)
CPT/HCPCS: 82565; 85049; 85610; 36415; 49083; P9047

== ENCOUNTER 2020-08-07 11:53 | Emergency (ER) | payer MEDICARE, OTHER ==
[2020-08-07 12:05] VITALS: RESP 18
--- NOTE | 2020-08-07 13:45 | ED ---
General Adult HPI - General Chief complaint: Abdominal Pain Stated complaint: abd distention Time Seen by Provider: 08/07/20 12:59 Source: patient, EMS, RN notes reviewed, old records reviewed Mode of arrival: EMS Limitations: no limitations - History of Present Illness Initial comments: 59-year-old male patient to the ED for abdominal ascites. Patient reports that he missed his last paracentesis and that he had an appointment earlier in the day today at this facility however was unable to make it due to transportation. Patient called EMS for transportation the hospital. Reports that his abdomen feels bloated but denies any other acute complaints. Systemic: Pt denies fatigue, fever/chills, rash. Pt denies weakness, night sweats, weight loss. Neuro: Pt denies headache, visual disturbances, syncope or pre-syncope. HEENT: Pt denies ocular discharge or irritation, otalgia, rhinorrhea, pharyngitis or notable lymphadenopathy. Cardiopulmonary: Pt denies chest pain, SOB, heart palpitations, dyspnea on exertion. Abdominal/GI: Pt denies abdominal pain, n/v/d. : Pt denies dysuria, burning w/ urination, frequency/urgency. Denies new onset urinary or bowel incontinence. MSK: Pt denies myalgia, loss of strength or function in extremities. Neuro: Pt denies new onset weakness, paresthesias. - Related Data Home Medications Medication Instructions Recorded Confirmed Spironolactone 100 mg PO DAILY 04/20/19 07/19/20 Carvedilol [Coreg] 3.125 mg PO BID 09/29/19 07/19/20 Famotidine [Pepcid] 20 mg PO HS 09/29/19 07/19/20 Furosemide [Lasix] 40 mg PO DAILY 05/09/20 07/19/20 Melatonin 1 mg PO HS PRN 05/09/20 07/19/20 Simethicone [Gas-X] 125 mg PO DAILY 05/23/20 07/19/20 Previous Rx's Medication Instructions Recorded Albuterol Inhaler [Ventolin Hfa 2 puff INHALATION RT-QID PRN #1 05/10/20 Inhaler] inhaler Allergies Allergy/AdvReac Type Severity Reaction Status Date / Time No Known Allergies Allergy Verified 08/07/20 12:05 Review of Systems ROS Statement: Those systems with pertinent positive or pertinent negative responses have been documented in the HPI. ROS Other: All systems not noted in ROS Statement are negative. Past Medical History Past Medical History: Hyperlipidemia, Hypertension, Liver Disease Additional Past Medical History / Comment(s): Liver cirrhosis, ascities with prior paracentesises, lower GI bleed, chronic thrombocytopenia, chronic lower back pain, multi large volune paracentesis. History of Any Multi-Drug Resistant Organisms: None Reported Past Surgical History: No Surgical Hx Reported Additional Past Surgical History / Comment(s): multiple paracentesis Past Anesthesia/Blood Transfusion Reactions: No Reported Reaction Past Psychological History: Anxiety, Bipolar, Depression, Schizophrenia Smoking Status: Current every day smoker Past Alcohol Use History: Abuse, Heavy, Rare Past Drug Use History: Marijuana - Past Family History Mother Family Medical History: Congestive Heart Failure (CH[place]), Myocardial Infarction ([place]) Additional Family Medical History / Comment(s): Mother of a [place] at the age of 56yrs. Father Family Medical History: Diabetes Mellitus Additional Family Medical History / Comment(s): Father at the age of 81 yrs of "natural causes" General Exam - General Exam Comments Initial Comments: Constitutional: NAD, AOX3, Pt has pleasant affect. HEENT: NC/AT, trachea midline, neck supple, no lymphadenopathy. External ears appear normal, without discharge. Mucous membranes moist. Eyes PERRLA, EOM intact. There is no scleral icterus. No pallor noted. Cardiopulmonary: RRR, no murmurs, rubs or gallops, no JVD noted. Mild wheezing noted in anterior lung posadas.. No peripheral edema. Abdominal exam: Abdomen markedly distended. Abdomen non-tender to palpation in all 4 quadrants. Bowel sounds active in LLQ. No hepatosplenomegaly. No ecchymosis Neuro: CN II-XII grossly intact. No nuchal rigidity. No raccon eyes, no almeida sign, no hemotympanum. No cervical spinal tenderness. MSK: Full active ROM in upper and lower extremities, 5/5 stregnth. Limitations: no limitations Course Vital Signs 08/07/20 08/07/20 12:03 13:46 Temperature 98.2 F 98.6 F Pulse Rate 84 81 Respiratory 18 18 Rate Blood Pressure 163/91 153/101 O2 Sat by Pulse 100 100 Oximetry Medical Decision Making - Medical Decision Making 59-year-old male patient to ED for abdominal ascites secondary to liver cirrhosis. Patient did have an appointment earlier today to have paracentesis that he messed. Abdomen is distended. Mild wheezing in lungs patient reports this is his baseline and declines breathing tx. Interventional radiology was ontacted by nursing staff and they are able to see him in their facility for a scheduled paracentesis within the hospital. She is agreeable to this and will be discharged from the facility. Case discussed with Dr. Fu. Disposition Clinical Impression: Abdominal ascites Disposition: HOME SELF-CARE Condition: Stable Instructions (If sedation given, give patient instructions): Ascites (ED) Additional Instructions: Go directly to interventional radiology. Follow up with PCP tomorrow. Return to ED with any worsening symptoms. Is patient prescribed a controlled substance at d/c from ED?: No Referrals: Linda Granados DO [Primary Care Provider] - 1-2 days
[2020-08-07 13:48] VITALS: BP 153/101; PULSE 81; TEMP 98.6
== END 2020-08-07 13:46 | disposition home or self-care (01) ==
LOC: EC 11:53
DX: R18.8 Other ascites (principal); R14.0 Abdominal distension (gaseous); R06.2 Wheezing; I10 Essential (primary) hypertension; F17.200 Nicotine dependence, unspecified, uncomplicated; Z79.899 Other long term (current) drug therapy
CPT/HCPCS: 99284

== ENCOUNTER 2020-08-07 13:55 | Day surgery (SDC) | payer MEDICARE, OTHER ==
[2020-08-07 14:41] LABS: Mean Platelet Volume 10.5; Platelet Count 138 k/uL (150-450)
[2020-08-07] MEDS: ALBUMIN HUMAN 25% 50 ML in EMPTY BAG 1 BAG IVPB SCH ×4 (14:42→16:30)
[2020-08-07 15:13] LABS: African American GFR (CKD) >90 (>60 ml/min/1.73 sqM); Non-African American GFR(CKD) >90 (>60 ml/min/1.73 sqM)
[2020-08-07 15:24] VITALS: RESP 18; TEMP 97.5
[2020-08-07 15:29] LABS: INR 1.3 (<1.2); Prothrombin Time 12.8 sec (9.0-12.0)
[2020-08-07 17:38] VITALS: BP 124/70; PULSE 80
--- NOTE | 2020-08-08 08:51 | US ---
Ultrasound-guided paracentesis. DATE OF EXAM: 08/07/2020 CLINICAL HISTORY: Ascites The procedure was discussed with the patient. The risks, complications, benefits, and alternatives we re discussed and any questions were answered. Informed consent was obtained. The patient was placed s upine on the ultrasound table and prepped and draped in the usual sterile fashion. All elements of maximal barrier technique were utilized. Under ultrasound guidance, access into the right lower quadrant was obtained, via the paracentesis catheter system and direct ultrasound guidanc e. Approximately 16 liters of straw-colored fluid was removed. The patient was stable throughout the pro cedure and remained stable upon discharge from Department of Radiology. IMPRESSION: Successful paracentesis under ultrasound guidance.
== END 2020-08-07 17:42 | disposition home or self-care (01) ==
LOC: RADPROMAIN 13:55
PROVIDERS: ATTEND Internal Medicine
DX: R18.8 Other ascites (principal)
CPT/HCPCS: 82565; 85049; 85610; 36415; 49083; P9047

== ENCOUNTER 2021-10-18 16:47 | Emergency (ER) | payer MEDICARE, OTHER ==
[2021-10-18 17:11] VITALS: RESP 20
--- NOTE | 2021-10-18 17:53 | ED ---
General Adult HPI - General Chief complaint: Recheck/Abnormal Lab/Rx Stated complaint: SOB Time Seen by Provider: 10/18/21 17:25 Source: EMS, RN notes reviewed Mode of arrival: EMS Limitations: no limitations - History of Present Illness Initial comments: This is a pleasant 61-year-old male with a history of alcoholism, hyperlipidemia, hypertension, liver disease, ascites, previous paracentesis. Patient states he last had fluid drained from his abdomen in August. Patient presents here for generalized fatigue and difficulty sleeping while at [facility]. Been there since Friday for alcohol rehabilitation. Patient's last drink was on Friday. Patient really denies any other symptomology. He does have a history of ascites and has some residual abdominal distention. He also has an umbilical hernia which is reducible. He denies any nausea or vomiting. No changes in bowel movements or urination. No fever or chills. No shortness of breath or chest pain. No headache. No changes in vision or hearing. No skin rashes or lesions. No imbalance. No tremors. No seizures. No hallucinations. - Related Data Home Medications Medication Instructions Recorded Confirmed Spironolactone 100 mg PO DAILY 04/20/19 08/29/20 Carvedilol [Coreg] 3.125 mg PO BID 09/29/19 08/29/20 Famotidine [Pepcid] 20 mg PO HS 09/29/19 08/29/20 Furosemide [Lasix] 40 mg PO DAILY 05/09/20 08/29/20 Melatonin 1 mg PO HS PRN 05/09/20 08/29/20 Simethicone [Gas-X] 125 mg PO DAILY 05/23/20 08/29/20 Previous Rx's Medication Instructions Recorded Albuterol Inhaler [Ventolin Hfa 2 puff INHALATION RT-QID PRN #1 05/10/20 Inhaler] inhaler Allergies Allergy/AdvReac Type Severity Reaction Status Date / Time No Known Allergies Allergy Verified 10/18/21 17:07 Review of Systems ROS Statement: Those systems with pertinent positive or pertinent negative responses have been documented in the HPI. ROS Other: All systems not noted in ROS Statement are negative. Past Medical History Past Medical History: Hyperlipidemia, Hypertension, Liver Disease Additional Past Medical History / Comment(s): Liver cirrhosis, ascities with prior paracentesises, lower GI bleed, chronic thrombocytopenia, chronic lower back pain, multi large volune paracentesis. History of Any Multi-Drug Resistant Organisms: None Reported Past Surgical History: No Surgical Hx Reported Additional Past Surgical History / Comment(s): multiple paracentesis Past Anesthesia/Blood Transfusion Reactions: No Reported Reaction Past Psychological History: Anxiety, Bipolar, Depression, Schizophrenia Smoking Status: Current every day smoker Past Alcohol Use History: Abuse, Heavy Past Drug Use History: Marijuana - Past Family History Mother Family Medical History: Congestive Heart Failure (CHF), Myocardial Infarction (NM) Additional Family Medical History / Comment(s): Mother of a [place] at the age of 56yrs. Father Family Medical History: Diabetes Mellitus Additional Family Medical History / Comment(s): Father at the age of 81 yrs of "natural causes" General Exam - General Exam Comments Initial Comments: Patient in no significant distress. Mildly hypertensive. Afebrile. Limitations: no limitations General appearance: alert, in no apparent distress Head exam: Present: atraumatic, normocephalic, normal inspection Eye exam: Present: normal appearance, PERRL, EOMI. Absent: scleral icterus, conjunctival injection, periorbital swelling ENT exam: Present: normal exam, normal oropharynx, mucous membranes moist, TM's normal bilaterally, normal external ear exam Neck exam: Present: normal inspection. Absent: tenderness, meningismus, lymphadenopathy Respiratory exam: Present: normal lung sounds bilaterally. Absent: respiratory distress, wheezes, rales, rhonchi, stridor Cardiovascular Exam: Present: regular rate, normal rhythm, normal heart sounds. Absent: systolic murmur, diastolic murmur, rubs, gallop, clicks GI/Abdominal exam: Present: soft, distended, normal bowel sounds, other (No specific tenderness. Mild distention. Reducible umbilical hernia noted.). Absent: tenderness, guarding, rebound, rigid Extremities exam: Present: normal inspection, full ROM, normal capillary refill. Absent: tenderness, pedal edema, joint swelling, calf tenderness Back exam: Present: normal inspection Neurological exam: Present: alert, oriented X3, CN II-XII intact Psychiatric exam: Present: normal affect, normal mood Skin exam: Present: warm, dry, intact, normal color. Absent: rash Course Vital Signs 10/18/21 10/18/21 17:07 20:54 Temperature 97.7 F Pulse Rate 62 62 Respiratory 20 20 Rate Blood Pressure 150/86 161/71 O2 Sat by Pulse 98 100 Oximetry - Reevaluation(s) Reevaluation #1: 10/18/21 21:38 Medical record is reviewed Symptoms are improved here in the emergency department Patient is informed of results and questions answered Patient in no distress Medical Decision Making - Medical Decision Making Patient presents from [facility]. No evidence of withdrawal symptoms. Last drink was on Friday. Only complaint is mild fatigue and tiredness which she states is due to sleep disturbance. This is findings are essentially consistent with chronic and previous findings. Patient has no evidence of alcohol withdrawal. No evidence of acute intra- abdominal pathology. Follow-up with your regular physician as directed. Return to the ER immediately if any symptoms worsen, new symptoms arise, or any other problems develop. - Lab Data Result diagrams: 10/18/21 17:56 10/18/21 17:56 Lab Results 10/18/21 10/18/21 10/18/21 Range/Units 17:56 17:56 17:56 WBC 3.2 L (3.8-10.6) k/uL RBC 4.27 L (4.30-5.90) m/uL Hgb 12.7 L (13.0-17.5) gm/dL Hct 37.2 L (39.0-53.0) % MCV 87.1 (80.0-100.0) fL MCH 29.7 (25.0-35.0) pg MCHC 34.2 (31.0-37.0) g/dL RDW 18.3 H (11.5-15.5) % Plt Count 103 L (150-450) k/uL MPV 7.9 Neutrophils % 65 % Lymphocytes % 22 % Monocytes % 7 % Eosinophils % 5 % Basophils % 0 % Neutrophils # 2.1 (1.3-7.7) k/uL Lymphocytes # 0.7 L (1.0-4.8) k/uL Monocytes # 0.2 (0-1.0) k/uL Eosinophils # 0.2 (0-0.7) k/uL Basophils # 0.0 (0-0.2) k/uL Anisocytosis Slight PT 11.5 (9.0-12.0) sec INR 1.1 (<1.2) APTT 26.3 (22.0-30.0) sec Sodium 134 L (137-145) mmol/L Potassium 4.2 (3.5-5.1) mmol/L Chloride 105 (98-107) mmol/L Carbon Dioxide 22 (22-30) mmol/L Anion Gap 7 mmol/L BUN 13 (9-20) mg/dL Creatinine 0.49 L (0.66-1.25) mg/dL Est GFR (CKD-EPI)AfAm >90 (>60 ml/min/1.73 sqM) Est GFR (CKD-EPI)NonAf >90 (>60 ml/min/1.73 sqM) Glucose 88 (74-99) mg/dL Calcium 8.3 L (8.4-10.2) mg/dL Phosphorus 4.0 (2.5-4.5) mg/dL Magnesium 2.1 (1.6-2.3) mg/dL Total Bilirubin 0.9 (0.2-1.3) mg/dL GGT 64 (15-73) U/L AST 34 (17-59) U/L ALT 20 (4-49) U/L Alkaline Phosphatase 114 (38-126) U/L Total Protein 6.9 (6.3-8.2) g/dL Albumin 3.3 L (3.5-5.0) g/dL Lipase 213 (23-300) U/L Urine Color Urine Appearance (Clear) Urine pH (5.0-8.0) Ur Specific [place] (1.001-1.035) Urine Protein (Negative) Urine Glucose (UA) (Negative) Urine Ketones (Negative) Urine Blood (Negative) Urine Nitrite (Negative) Urine Bilirubin (Negative) Urine Urobilinogen (<2.0) mg/dL Ur Leukocyte Esterase (Negative) Coronavirus (PCR) (Not Detectd) 10/18/21 10/18/21 Range/Units 18:02 18:05 WBC (3.8-10.6) k/uL RBC (4.30-5.90) m/uL Hgb (13.0-17.5) gm/dL Hct (39.0-53.0) % MCV (80.0-100.0) fL MCH (25.0-35.0) pg MCHC (31.0-37.0) g/dL RDW (11.5-15.5) % Plt Count (150-450) k/uL MPV Neutrophils % % Lymphocytes % % Monocytes % % Eosinophils % % Basophils % % Neutrophils # (1.3-7.7) k/uL Lymphocytes # (1.0-4.8) k/uL Monocytes # (0-1.0) k/uL Eosinophils # (0-0.7) k/uL Basophils # (0-0.2) k/uL Anisocytosis PT (9.0-12.0) sec INR (<1.2) APTT (22.0-30.0) sec Sodium (137-145) mmol/L Potassium (3.5-5.1) mmol/L Chloride (98-107) mmol/L Carbon Dioxide (22-30) mmol/L Anion Gap mmol/L BUN (9-20) mg/dL Creatinine (0.66-1.25) mg/dL Est GFR (CKD-EPI)AfAm (>60 ml/min/1.73 sqM) Est GFR (CKD-EPI)NonAf (>60 ml/min/1.73 sqM) Glucose (74-99) mg/dL Calcium (8.4-10.2) mg/dL Phosphorus (2.5-4.5) mg/dL Magnesium (1.6-2.3) mg/dL Total Bilirubin (0.2-1.3) mg/dL GGT (15-73) U/L AST (17-59) U/L ALT (4-49) U/L Alkaline Phosphatase (38-126) U/L Total Protein (6.3-8.2) g/dL Albumin (3.5-5.0) g/dL Lipase (23-300) U/L Urine Color Yellow Urine Appearance Clear (Clear) Urine pH 7.0 (5.0-8.0) Ur Specific [place] 1.015 (1.001-1.035) Urine Protein Negative (Negative) Urine Glucose (UA) Negative (Negative) Urine Ketones Negative (Negative) Urine Blood Negative (Negative) Urine Nitrite Negative (Negative) Urine Bilirubin Negative (Negative) Urine Urobilinogen 3.0 (<2.0) mg/dL Ur Leukocyte Esterase Negative (Negative) Coronavirus (PCR) Not Detected (Not Detectd) Disposition Clinical Impression: Chronic liver disease, Ascites due to chronic alcoholic hepatitis, Sleep disturbance, Reducible umbilical hernia Disposition: HOME SELF-CARE Condition: Stable Instructions (If sedation given, give patient instructions): Cirrhosis (ED), Umbilical Hernia (ED), Ascites (ED) Additional Instructions: Follow-up with a general surgeon as an outpatient. Treatment plan per [place]. Follow-up with your regular physician as directed. Return to the ER immediately if any symptoms worsen, new symptoms arise, or any other problems develop. Is patient prescribed a controlled substance at d/c from ED?: No Referrals: Saurabh Davidson MD [Medical Doctor] - 10/22/21 Time of Disposition: 21:42
[2021-10-18 18:07] LABS: Anisocytosis Slight; Basophils % (A) 0 %; Eosinophils # (A) 0.2 k/uL (0-0.7); Eosinophils % (A) 5 %; HCT 37.2 % (39.0-53.0); HGB 12.7 gm/dL (13.0-17.5); Lymphocytes # (A) 0.7 k/uL (1.0-4.8); Lymphocytes % (A) 22 %; MCH 29.7 pg (25.0-35.0); MCHC 34.2 g/dL (31.0-37.0); MCV 87.1 fL (80.0-100.0); Mean Platelet Volume 7.9; Monocytes # (A) 0.2 k/uL (0-1.0); Monocytes % (A) 7 %; Neutrophils # (A) 2.1 k/uL (1.3-7.7); Neutrophils % (A) 65 %; Platelet Count 103 k/uL (150-450); RBC 4.27 m/uL (4.30-5.90); RDW 18.3 % (11.5-15.5); WBC 3.2 k/uL (3.8-10.6)
[2021-10-18 18:18] LABS: ALT 20 U/L (4-49); AST 34 U/L (17-59); African American GFR (CKD) >90 (>60 ml/min/1.73 sqM); Albumin 3.3 g/dL (3.5-5.0); Anion Gap 7 mmol/L; Blood Urea Nitrogen 13 mg/dL (9-20); Calcium 8.3 mg/dL (8.4-10.2); Carbon Dioxide 22 mmol/L (22-30); Chloride 105 mmol/L (98-107); GGT 64 U/L (15-73); Glucose 88 mg/dL (74-99); Lipase 213 U/L (23-300); Non-African American GFR(CKD) >90 (>60 ml/min/1.73 sqM); Sodium 134 mmol/L (137-145); Total Bilirubin 0.9 mg/dL (0.2-1.3); Total Protein 6.9 g/dL (6.3-8.2)
[2021-10-18 18:20] LABS: Appearance,Urine Clear (Clear); Bilirubin,Urine Negative (Negative); Blood,Urine Negative (Negative); Color,Urine Yellow; Glucose,Urine (UA) Negative (Negative); Ketones,Urine Negative (Negative); Leukocyte Esterase,Urine Negative (Negative); Nitrite,Urine Negative (Negative); Protein,Urine Negative (Negative); Specific Gravity,Urine 1.015 (1.001-1.035)
[2021-10-18 18:22] LABS: Alkaline Phosphatase 114 U/L (38-126); Magnesium 2.1 mg/dL (1.6-2.3); Potassium 4.2 mmol/L (3.5-5.1)
[2021-10-18 18:26] LABS: INR 1.1 (<1.2); Partial Thromboplastin Time 26.3 sec (22.0-30.0); Prothrombin Time 11.5 sec (9.0-12.0)
--- NOTE | 2021-10-18 19:07 | XR ---
EXAMINATION TYPE: XR abdomen 2V DATE OF EXAM: 10/18/2021 6:22 PM INDICATION: Patient age:Male; 61 years old; Reason for study: abdominal pain; COMPARISON: Chest radiograph December 2019 TECHNIQUE: One radiographic view of the abdomen was obtained. FINDINGS: Loops of small bowel are seen throughout the abdomen measuring up to 5.0 cm. There is no ev idence for organomegaly or pneumoperitoneum. The osseous structures are intact. No abnormal calcifi cations are present. Fecal material and gas are demonstrated throughout the colon and rectum. Emboli zation coils seen within left upper abdomen. IMPRESSION: Dilated loops of small bowel throughout the abdomen correlate for small bowel obstruction versus ileu s.
--- NOTE | 2021-10-18 21:21 | CT ---
EXAMINATION TYPE: CT abdomen pelvis w con CT DLP: 1096.2 mGycm, Automated exposure control for dose reduction was used. DATE OF EXAM: 10/18/2021 9:04 PM COMPARISON: [facility]. CLINICAL INDICATION:Male, 61 years old with history of Abdominal distention. TECHNIQUE: Standard CT of the abdomen and pelvis following the administration of 100 cc of Isovue 3 00 IV contrast material. Coronal and sagittal reformats were performed. FINDINGS: LOWER CHEST: Unremarkable ABDOMEN LIVER: Nodular contour to the liver with cirrhotic morphology. GALLBLADDER AND BILE DUCTS: Cholelithiasis present. PANCREAS: Unremarkable. SPLEEN: Enlarged to 15.3 cm low-density area within the spleen may represent cyst, hemangioma or infa rct given its wedge-shaped appearance. ADRENAL GLANDS: Unremarkable. KIDNEYS AND URETERS: No evidence of hydronephrosis or renal calculus. The ureters are unremarkable. PELVIS BLADDER: Unremarkable REPRODUCTIVE: Prostate is enlarged in size measuring 5.1 cm in transverse dimension. ABDOMEN & PELVIS STOMACH AND BOWEL: No evidence of bowel obstruction. PERITONEUM: No evidence of pneumoperitoneum. Large amount of Free fluid is seen within the abdomen. VASCULATURE: No evidence of aortic aneurysm. Embolization coils are seen within the left upper quadra nt varices. Additional abdominal varices are seen. MUSCULOSKELETAL: Moderate disc degeneration changes are present throughout the thoracolumbar spine. LYMPH NODES: No gross evidence for lymphadenopathy. SOFT TISSUE/ABDOMINAL WALL: Abdominal wall hernia containing ascites. IMPRESSION: 1. Cirrhosis and sequela of portal hypertension including varices some of which have been embolized. Additionally there is splenomegaly and a large amount of ascites. 2. Anterior abdominal wall hernia containing ascites.
[2021-10-18 22:58] VITALS: BP 154/76; PULSE 64; TEMP 97.9
== END 2021-10-18 22:11 | disposition home or self-care (01) ==
LOC: EC 16:47
DX: K76.9 Liver disease, unspecified (principal); K70.31 Alcoholic cirrhosis of liver with ascites; G47.9 Sleep disorder, unspecified; K42.9 Umbilical hernia without obstruction or gangrene; E78.5 Hyperlipidemia, unspecified; I10 Essential (primary) hypertension; F41.9 Anxiety disorder, unspecified; F31.9 Bipolar disorder, unspecified; F25.9 Schizoaffective disorder, unspecified; F17.200 Nicotine dependence, unspecified, uncomplicated; F12.90 Cannabis use, unspecified, uncomplicated; Z20.822 Contact with and (suspected) exposure to COVID-19
CPT/HCPCS: 99284; 36415; 80053; 82977; 83690; 83735; 84100; 85025; 85610; 85730; 81003; 87635; 74019; 74177; Q9967

== ENCOUNTER 2024-03-23 18:25 | Observation (INO) | payer MEDICARE, OTHER ==
--- NOTE | 2024-03-23 18:47 | ED ---
General Adult HPI - General Chief complaint: Abdominal Pain Stated complaint: Abd Pain Time Seen by Provider: 03/23/24 18:27 Source: patient, EMS, RN notes reviewed, old records reviewed Mode of arrival: EMS Limitations: no limitations - History of Present Illness Initial comments: 63-year-old male presenting for evaluation of generalized abdominal distention and pain. Patient has a hernia defect in the right lower abdominal wall which she states has been increasing in size. He states that he does continue to drink despite diagnosis of cirrhosis and ascites. He states he drank beer yesterday. Patient also believes that he had paracentesis performed approximately 1 week ago with removal of 4 L this was performed at [facility]. He has no fever. No vomiting currently. - Related Data Home Medications Medication Instructions Recorded Confirmed Spironolactone 100 mg PO DAILY 04/20/19 08/29/20 Famotidine [Pepcid] 20 mg PO HS 09/29/19 08/29/20 carvediloL [Coreg] 3.125 mg PO BID 09/29/19 08/29/20 Furosemide [Lasix] 40 mg PO DAILY 05/09/20 08/29/20 Melatonin [Melatonin Oral Solution] 1 mg PO HS PRN 05/09/20 08/29/20 Simethicone [Gas-X] 125 mg PO DAILY 05/23/20 08/29/20 Previous Rx's Medication Instructions Recorded Albuterol Inhaler [Ventolin Hfa 2 puff INHALATION RT-QID PRN #1 05/10/20 Inhaler] inhaler Allergies Allergy/AdvReac Type Severity Reaction Status Date / Time No Known Allergies Allergy Verified 03/23/24 18:33 Review of Systems ROS Statement: Those systems with pertinent positive or pertinent negative responses have been documented in the HPI. ROS Other: All systems not noted in ROS Statement are negative. Past Medical History Past Medical History: Hyperlipidemia, Hypertension, Liver Disease Additional Past Medical History / Comment(s): Liver cirrhosis, ascities with prior paracentesises, lower GI bleed, chronic thrombocytopenia, chronic lower back pain, multi large volune paracentesis. History of Any Multi-Drug Resistant Organisms: None Reported Past Surgical History: No Surgical Hx Reported Additional Past Surgical History / Comment(s): multiple paracentesis Past Anesthesia/Blood Transfusion Reactions: No Reported Reaction Past Psychological History: Anxiety, Bipolar, Depression, Schizophrenia Smoking Status: Current every day smoker Past Alcohol Use History: Abuse, Heavy Past Drug Use History: Marijuana - Past Family History Mother Family Medical History: Congestive Heart Failure (CHF), Myocardial Infarction ([place]) Additional Family Medical History / Comment(s): Mother of a [place] at the age of 56yrs. Father Family Medical History: Diabetes Mellitus Additional Family Medical History / Comment(s): Father at the age of 81 yrs of "natural causes" General Exam General appearance: alert, in no apparent distress Head exam: Present: atraumatic, normocephalic Eye exam: Present: normal appearance, PERRL Respiratory exam: Present: rhonchi. Absent: respiratory distress Cardiovascular Exam: Present: regular rate, normal rhythm GI/Abdominal exam: Present: distended, hernia, other (Fluid). Absent: tenderness Extremities exam: Present: normal inspection. Absent: pedal edema Neurological exam: Present: alert, oriented X3 Psychiatric exam: Present: normal affect, normal mood Course Vital Signs 03/23/24 03/23/24 18:29 19:54 Temperature 98.1 F 97.7 F Pulse Rate 69 67 Respiratory 18 16 Rate Blood Pressure 140/68 150/76 O2 Sat by Pulse 99 99 Oximetry Medical Decision Making - Medical Decision Making Was pt. sent in by a medical professional or institution (AZEEM Bradford, INDUCTION MACHINE SETTER, urgent care, hospital, or shelter...) When possible be specific @ -No Did you speak to anyone other than the patient for history (EMS, parent, family, police, friend...)? What history was obtained from this source @ -No Did you review nursing and triage notes (agree or disagree)? Why? @ -I reviewed and agree with nursing and triage notes Were old charts reviewed (outside hosp., previous admission, EMS record, old EKG, old radiological studies, urgent care reports/EKG's, shelter records)? Report findings @ -No old charts were reviewed Differential Abdominal Pain Men: Appendicitis, cholecystitis, diverticulosis, ischemic bowel, pancreatitis, he patitis, UTI, gastroenteritis, AAA, incarcerated hernia, bowel obstruction, constipation, inflammatory bowel, hepatitis, peptic ulcer disease, splenic infarction, perforated viscus, testicular torsion, this is not meant to be an all-inclusive list EKG interpreted by me (3pts min.). @ -As above X-rays interpreted by me (1pt min.). @ -None done CT interpreted by me (1pt min.). @CT abdomen/pelvis showing diffuse ascites, chronic changes and large anterior abdominal hernia without obstruction. U/S interpreted by me (1pt. min.). @ -None done What testing was considered but not performed or refused? (CT, X-rays, U/S, labs)? Why? @ -None What meds were considered but not given or refused? Why? @ -None Did you discuss the management of the patient with other professionals (professionals i.e. DrUmberto, PA, INDUCTION MACHINE SETTER, lab, RT, psych nurse, social professionals, dumpcart driver, teacher, compliance review officer, child welfare caseworker)? Give summary @EM Was smoking cessation discussed for >3mins.? @ -No Was critical care preformed (if so, how long)? @ -No Were there social determinants of health that impacted care today? How? (Home lessness, low income, unemployed, alcoholism, drug addiction, transportation, low edu. Level, literacy, decrease access to med. care, snf, rehab)? @ -No Was there de-escalation of care discussed even if they declined (Discuss DNR or withdrawal of care, Hospice)? DNR status @ -No What co-morbidities impacted this encounter? (DM, HTN, Smoking, COPD, CAD, Cancer, CVA, ARF, Chemo, Hep., AIDS, mental health diagnosis, sleep apnea, morbid obesity)? @ -None Was patient admitted / discharged? Hospital course, mention meds given and route, prescriptions, significant lab abnormalities, going to OR and other pertinent info. @ -63-year-old male with chronic alcohol abuse, cirrhosis, ascites presenting with abdominal distention. Patient is somewhat intoxicated upon arrival. Hemodynamically stable. Alcohol is 97. He has chronic lab abnormalities. CT showing ascites and anterior abdominal hernia without obstruction. Patient will require paracentesis. He will be placed in observation with consult to interventional radiology. Undiagnosed new problem with uncertain prognosis? @ -No Drug Therapy requiring intensive monitoring for toxicity (Heparin, Nitro, Insulin, Cardizem)? @ -No Were any procedures done? @ -No Diagnosis/symptom? @ -Abdominal distention, hernia, ascites Acute, or Chronic, or Acute on Chronic? @C acute on chronic Uncomplicated (without systemic symptoms) or Complicated (systemic symptoms)? @ -Default Side effects of treatment? @ -No Exacerbation, Progression, or Severe Exacerbation? @ -No Poses a threat to life or bodily function? How? (Chest pain, [place], [place], pneumonia, PE, COPD, DKA, ARF, appy, cholecystitis, CVA, Diverticulitis, Homicidal, Suicidal, threat to staff... and all critical care pts) @ -Moderate risk - Lab Data Result diagrams: 03/23/24 18:59 03/23/24 18:59 Lab Results 03/23/24 03/23/24 03/23/24 Range/Units 18:59 18:59 18:59 WBC 2.8 L (3.8-10.6) k/uL RBC 4.21 L (4.30-5.90) m/uL Hgb 9.5 L (13.0-17.5) gm/dL Hct 31.1 L (39.0-53.0) % MCV 73.7 L (80.0-100.0) fL MCH 22.7 L (25.0-35.0) pg MCHC 30.7 L (31.0-37.0) g/dL RDW 19.4 H (11.5-15.5) % MPV 8.5 Hypochromasia Marked Anisocytosis Slight Microcytosis Moderate PT 14.5 H (10.0-12.5) sec INR 1.4 H (<1.2) APTT 27.0 (22.0-30.0) sec Sodium 131 L (137-145) mmol/L Potassium 3.6 (3.5-5.1) mmol/L Chloride 102 (98-107) mmol/L Carbon Dioxide 20 L (22-30) mmol/L Anion Gap 9 mmol/L BUN 7 L (9-20) mg/dL Creatinine 0.46 L (0.66-1.25) mg/dL Est GFR (CKD-EPI)AfAm >90 (>60 ml/min/1.73 sqM) Est GFR (CKD-EPI)NonAf >90 (>60 ml/min/1.73 sqM) Glucose 94 (74-99) mg/dL Calcium 7.8 L (8.4-10.2) mg/dL Total Bilirubin 1.8 H (0.2-1.3) mg/dL AST 91 H (17-59) U/L ALT 44 (4-49) U/L Alkaline Phosphatase 108 (38-126) U/L Total Protein 7.3 (6.3-8.2) g/dL Albumin 3.3 L (3.5-5.0) g/dL Serum Alcohol 97 mg/dL Disposition Clinical Impression: Cirrhosis of liver with ascites, Abdominal pain, Hernia Disposition: ADMITTED IP TO THIS [facility] Condition: Stable Instructions (If sedation given, give patient instructions): Abdominal Pain (ED) Is patient prescribed a controlled substance at d/c from ED?: No Referrals: Hunter Singer MD [Primary Care Provider] - 1-2 days Time of Disposition: 21:23
[2024-03-23 19:40] LABS: INR 1.4 (<1.2); Prothrombin Time 14.5 sec (10.0-12.5)
--- NOTE | 2024-03-23 20:01 | CT ---
EXAMINATION TYPE: CT abdomen pelvis wo con CT DLP: 580 mGycm, Automated exposure control for dose reduction was used. DATE OF EXAM: 03/23/2024 7:13 PM COMPARISON: CT abdomen pelvis from October 18, 2021 CLINICAL INDICATION:Male, 63 years old with history of ab pain; Abdominal pain, hernia. TECHNIQUE: Axial CT abdomen pelvis wo con;Sagittal and coronal reformats were created on a separate workstation. Contrast used: mL of , (none if empty) Oral contrast used: without Oral Contrast (none if empty) FINDINGS: LOWER CHEST: Unremarkable ABDOMEN LIVER: Redemonstrated nodular contracted liver consistent with cirrhotic morphology. GALLBLADDER AND BILE DUCTS: Cholelithiasis PANCREAS: Unremarkable. SPLEEN: The spleen is enlarged measuring at least 14.7 cm in craniocaudad dimension. ADRENAL GLANDS: Visualization of the left adrenal glands limited secondary to embolization coils. The right adrenal gland appears unremarkable. KIDNEYS AND URETERS: No evidence of hydronephrosis. Punctate calcification within the right collectin g system the be nonobstructive renal calculus versus vascular calcification. The ureters are grossly unremarkable. PELVIS BLADDER: Unremarkable REPRODUCTIVE: Coarse calcifications are noted within the prostate which is otherwise within normal si ze limits. ABDOMEN & PELVIS STOMACH AND BOWEL: Stomach is grossly unremarkable. Small bowel is of normal caliber. No evidence of bowel obstruction. PERITONEUM/RETROPERITONEUM: No evidence of pneumoperitoneum. Moderate volume ascites redemonstrated w ithin the abdomen and pelvis. VASCULATURE: No evidence of aortic aneurysm. Redemonstrated embolization coils in the left upper quad rant varices. There are innumerable abdominal varices appreciated predominantly within the anterior a bdomen. MUSCULOSKELETAL: Degenerative changes of the lumbosacral spine. No acute osseous abnormalities LYMPH NODES: No gross evidence for lymphadenopathy. SOFT TISSUE/ABDOMINAL WALL: Large ventral hernia is again seen containing fat, ascites and loops of d ecompressed small bowel. IMPRESSION: 1. Redemonstrated cirrhosis with ascites and sequela of portal hypertension. Stable embolization coi ls in the left upper quadrant of the abdomen. 2. Innumerable anterior abdominal varices again seen. 3. Large ventral hernia containing decompressed small bowel, mesentery fat and ascites.
[2024-03-23 20:03] LABS: ALT 44 U/L (4-49); AST 91 U/L (17-59); African American GFR (CKD) >90 (>60 ml/min/1.73 sqM); Albumin 3.3 g/dL (3.5-5.0); Alkaline Phosphatase 108 U/L (38-126); Anion Gap 9 mmol/L; Blood Urea Nitrogen 7 mg/dL (9-20); Calcium 7.8 mg/dL (8.4-10.2); Carbon Dioxide 20 mmol/L (22-30); Chloride 102 mmol/L (98-107); Glucose 94 mg/dL (74-99); Non-African American GFR(CKD) >90 (>60 ml/min/1.73 sqM); Potassium 3.6 mmol/L (3.5-5.1); Sodium 131 mmol/L (137-145); Total Bilirubin 1.8 mg/dL (0.2-1.3); Total Protein 7.3 g/dL (6.3-8.2)
[2024-03-23 20:33] LABS: Alcohol 97 mg/dL
[2024-03-23 20:38] LABS: Anisocytosis Slight; Basophils % (A) 1 %; Eosinophils # (A) 0.1 k/uL (0-0.7); Eosinophils % (A) 3 %; HCT 31.1 % (39.0-53.0); HGB 9.5 gm/dL (13.0-17.5); Hypochromasia Marked; Lymphocytes # (A) 0.5 k/uL (1.0-4.8); Lymphocytes % (A) 18 %; MCH 22.7 pg (25.0-35.0); MCHC 30.7 g/dL (31.0-37.0); MCV 73.7 fL (80.0-100.0); Mean Platelet Volume 8.5; Microcytosis Moderate; Monocytes # (A) 0.3 k/uL (0-1.0); Monocytes % (A) 9 %; Neutrophils # (A) 1.9 k/uL (1.3-7.7); Neutrophils % (A) 66 %; RBC 4.21 m/uL (4.30-5.90); RDW 19.4 % (11.5-15.5); WBC 2.8 k/uL (3.8-10.6)
[2024-03-23] MEDS ORDERED: NALOXONE 0.4 MG/ML 1 ML VIAL IV PRN (21:32)
[2024-03-23] MEDS ORDERED: ONDANSETRON 4 MG/2 ML VIAL IVP PRN (21:32)
[2024-03-23 22:22] LABS: Platelet Count 72 k/uL (150-450)
[2024-03-23] MEDS: MORPHINE SULFATE 4 MG/ML SYRINGE IV PRN (22:44)
[2024-03-24] MEDS: PANTOPRAZOLE 40 MG/10 ML VIAL IV SCH (09:29)
[2024-03-24 13:16] VITALS: RESP 12
--- NOTE | 2024-03-24 13:58 | US ---
Ultrasound-guided paracentesis. DATE OF EXAM: 03/24/2024 CLINICAL HISTORY: Ascites The procedure was discussed with the patient. The risks, complications, benefits, and alternatives we re discussed and any questions were answered. Informed consent was obtained. The patient was placed s upine on the ultrasound table and prepped and draped in the usual sterile fashion. All elements of maximal barrier technique were utilized. Under ultrasound guidance, access into the right lower quadrant was obtained, via the paracentesis catheter system and direct ultrasound guidanc e. Approximately 4.2 liters of straw-colored fluid was removed. The patient was stable throughout the pr ocedure and remained stable upon discharge from Department of Radiology. IMPRESSION: Successful paracentesis under ultrasound guidance.
[2024-03-24 16:03] VITALS: BP 130/63; PULSE 60; TEMP 98.1
--- NOTE | 2024-03-25 10:54 | P.HPIM ---
History of Present Illness H&P Date: 03/24/24 This is a pleasant 63-year-old male who presented to the emergency department with increasing abdominal pain and distention with history of ascites. Patient has significant ventral hernia and does have a follow-up appointment in the outpatient setting in April with Dr. Solano although the distention and pain became too severe patient decided to come to the ER for further evaluation. Patient reports that he was recently at [facility] and underwent paracentesis. Patient does not recall the amount of fluid taken and otherwise reports has not frequently in the past to receive this although has had paracentesis a few years back. Patient reports he has been increasing his alcohol consumption lately and has not been taking any medications. Patient reports he follows with Dr. Singer in the outpatient setting with a past medical history of hyperlipidemia, hypertension, liver cirrhosis, chronic thrombocytopenia, chronic lower back pain, anxiety, bipolar depression with schizophrenia. Patient drinks and admits to daily cigarette use and denies any other illicit drug use. Patient was admitted under observation for interventional radiology consult for possible ascites drainage. Plan is for interventional radiology to perform paracentesis this afternoon. REVIEW OF SYSTEMS: CONSTITUTIONAL: No fever, no malaise, no fatigue. HEENT: No recent visual problems or hearing problems. Denied any sore throat. CARDIOVASCULAR: No chest pain, orthopnea, PND, no palpitations, no syncope. PULMONARY: No shortness of breath, no cough, no hemoptysis. GASTROINTESTINAL: No diarrhea, no nausea, no vomiting, reports abdominal pain with distention and pushing on pre-existing hernia. NEUROLOGICAL: No headaches, no weakness, no numbness. HEMATOLOGICAL: Denies any bleeding or petechiae. GENITOURINARY: Denies any burning micturition, frequency, or urgency. MUSCULOSKELETAL/RHEUMATOLOGICAL: Denies any joint pain, swelling, or any muscle pain. ENDOCRINE: Denies any polyuria or polydipsia. The rest of the 14-point review of systems is negative. PHYSICAL EXAMINATION: GENERAL: The patient is alert and oriented x3, not in any acute distress. Well developed, thin built, elderly appearing, unkempt HEENT: Pupils are round and equally reacting to light. EOMI. No scleral icterus. No conjunctival pallor. Normocephalic, atraumatic. No pharyngeal erythema. No thyromegaly. CARDIOVASCULAR: S1 and S2 present. No murmurs, rubs, or gallops. PULMONARY: Chest is clear to auscultation, no wheezing or crackles. ABDOMEN: Taut, tender, significantly distended, normoactive bowel sounds. No palpable organomegaly. Significant ventral hernia noted MUSCULOSKELETAL: No joint swelling or deformity. EXTREMITIES: No cyanosis, clubbing, or pedal edema. NEUROLOGICAL: Gross neurological examination did not reveal any focal deficits. SKIN: No rashes. Assessment: Abdominal pain and distention secondary to ascites from liver cirrhosis History of hyperlipidemia History of hypertension Continued ongoing nicotine dependence Daily alcohol use Chronic thrombocytopenia Chronic lower back pain Previous paracentesis at [facility] last week History of ventral hernia has been following up outpatient awaiting an appointment in April with Dr. Fernando for further evaluation GI prophylaxis DVT prophylaxis Full code Plan: Interventional radiology was consulted and patient is status post paracentesis with approximately 4 L removed. Patient will be given Lasix and Aldactone on and instructed the patient to follow-up with GI as well as keep his appointment in April with general surgery for ventral hernia repair Encouraged complete alcohol cessation Instructed patient to follow-up with primary care provider this week Recommend complete tobacco cessation Patient will be discharged later today. The impression and plan of care has been dictated by Laisha Hoyt, Nurse Practitioner as directed. Dr. Josie MD I have performed a history and examination and MDM of this patient, discussed the same with the dictator, and agree with the dictator's assessment and plan as written ,documented as a scribe. Based on total visit time, I have performed more than 50% of the visit. Past Medical History Past Medical History: Hyperlipidemia, Hypertension, Liver Disease Additional Past Medical History / Comment(s): Liver cirrhosis, ascities with prior paracentesises, lower GI bleed, chronic thrombocytopenia, chronic lower back pain, multi large volune paracentesis. History of Any Multi-Drug Resistant Organisms: None Reported Past Surgical History: No Surgical Hx Reported Additional Past Surgical History / Comment(s): multiple paracentesis Past Anesthesia/Blood Transfusion Reactions: No Reported Reaction Past Psychological History: Anxiety, Bipolar, Depression, Schizophrenia Additional Psychological History / Comment(s): Pt resides with family. He uses no assistive devices. He does not drive, he gets rides thru his medical insurance. Smoking Status: Current every day smoker Past Alcohol Use History: Abuse, Heavy Additional Past Alcohol Use History / Comment(s): Pt started smoking in 1973 and for the past year has cut down to 10 cigarettes a day. He used to smoke 2 ppd. 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 He states he now occaisionally drinks alcohol. Past Drug Use History: Marijuana Additional Drug Use History / Comment(s): Pt states he occasionally uses medical marijuana. - Past Family History Mother Family Medical History: Congestive Heart Failure (CHF), Myocardial Infarction ([place]) Additional Family Medical History / Comment(s): Mother of a [place] at the age of 56yrs. Father Family Medical History: Diabetes Mellitus Additional Family Medical History / Comment(s): Father at the age of 81 yrs of "natural causes" Medications and Allergies Home Medications Medication Instructions Recorded Confirmed Type Furosemide [Lasix] 40 mg PO DAILY #30 tablet 03/24/24 Rx Propranolol [Inderal] 10 mg PO TID #90 tab 03/24/24 Rx Spironolactone [Aldactone] 50 mg PO DAILY #60 tablet 03/24/24 Rx Allergies Allergy/AdvReac Type Severity Reaction Status Date / Time No Known Allergies Allergy Verified 03/24/24 08:17 Physical Exam Vitals: Vital Signs Temp Pulse Pulse Resp BP BP BP 03/24/24 07:20 98.3 F 64 18 143/61 03/24/24 02:16 98.0 F 68 16 152/74 03/23/24 22:39 98.0 F 71 16 164/83 03/23/24 19:54 97.7 F 67 16 150/76 03/23/24 18:29 98.1 F 69 18 140/68 Pulse Ox 03/24/24 07:20 99 03/24/24 02:16 98 03/23/24 22:39 97 03/23/24 19:54 99 03/23/24 18:29 99 Intake and Output 03/23/24 03/24/24 03/24/24 22:59 06:59 14:59 Intake Total 59 Balance 59 Intake: Oral 59 Other: # Voids 1 3 # Bowel Movements 1 Weight 72.575 kg Results CBC & Chem 7: 03/23/24 18:59 03/23/24 18:59 Labs: Abnormal Lab Results - Last 24 Hours (Table) 03/23/24 03/23/24 03/23/24 Range/Units 18:59 18:59 18:59 WBC 2.8 L (3.8-10.6) k/uL RBC 4.21 L (4.30-5.90) m/uL Hgb 9.5 L (13.0-17.5) gm/dL Hct 31.1 L (39.0-53.0) % MCV 73.7 L (80.0-100.0) fL MCH 22.7 L (25.0-35.0) pg MCHC 30.7 L (31.0-37.0) g/dL RDW 19.4 H (11.5-15.5) % Plt Count 72 L (150-450) k/uL Lymphocytes # 0.5 L (1.0-4.8) k/uL PT 14.5 H (10.0-12.5) sec INR 1.4 H (<1.2) Sodium 131 L (137-145) mmol/L Carbon Dioxide 20 L (22-30) mmol/L BUN 7 L (9-20) mg/dL Creatinine 0.46 L (0.66-1.25) mg/dL Calcium 7.8 L (8.4-10.2) mg/dL Total Bilirubin 1.8 H (0.2-1.3) mg/dL AST 91 H (17-59) U/L Albumin 3.3 L (3.5-5.0) g/dL Thrombosis Risk Factor Assmnt - Choose All That Apply Any of the Below Risk Factors Present?: Yes Each Factor Represents 1 point: Obesity (BMI >25), Swollen legs (current) Other Risk Factors: No Other congenital or acquired thrombophilia - If yes, enter type in comment: No Thrombosis Risk Factor Assessment Total Risk Factor Score: 2 Thrombosis Risk Factor Assessment Level: Low Risk
--- NOTE | 2024-03-25 16:38 | P.DS ---
Providers Date of admission: 03/23/24 21:32 Expected date of discharge: 03/24/24 Attending physician: Fe Butler Primary care physician: Hunter Singer [facility] Hospital Course: Final diagnosis Abdominal pain and distention secondary to ascites from liver cirrhosis, status post paracentesis of approximately 4.1 L removed History of hyperlipidemia History of hypertension Continued ongoing nicotine dependence Daily alcohol use Chronic thrombocytopenia Chronic lower back pain Previous paracentesis at [facility] last week History of ventral hernia has been following up outpatient awaiting an appointment in April with Dr. Fernando for further evaluation GI prophylaxis DVT prophylaxis Full code Discharge disposition Patient is being discharged in a stable condition with guarded prognosis to home. Patient will follow-up with in the outpatient setting upon discharge. Patient is to continue with Lasix and Aldactone and outpatient follow-up with repeat labs. Patient to continue to keep appointment with general surgery Dr. Solano for ventral hernia as scheduled in April. Patient also follow-up with GI in the outpatient setting. Encouraged and enforced complete alcohol cessation. Total time taken is greater than 35 minutes. Hospital course This is a 63-year-old male who was recently admitted with abdominal distention with concerns of ascites with alcoholic cirrhosis history. Patient was recently at [facility] and reports he underwent paracentesis about a week ago. Patient having increased pain and distention causing the ventral hernia to have increasing pain due to the ascites. Interventional radiology evaluated the patient underwent ultrasound with removal of approximately 4 L via paracentesis of the abdomen. Patient is being started on Aldactone and Lasix recommend follow-up labs and primary care provider follow-up this week. Encourage patient to keep appointment with general surgery for his ventral hernia. Patient reports to feeling improved and would like to go home. Currently no reports of chest pain, shortness of breath, or palpitations. Patient is afebrile. No reports of nausea or vomiting and patient is tolerating diet. Patient will be discharged home today. Guarded prognosis and high risk for readmissions given continued alcohol use and noncompliance. Physical exam: Gen: This is a 63-year-old male who is awake, alert and oriented x 3, well- developed, thin built, elderly appearing HEENT: Head is atraumatic, normocephalic. Pupils equal, round. Sclerae is anicteric. NECK: Supple. No JVD. No lymphadenopathy. No thyromegaly. LUNGS: Clear to auscultation. No wheezes or rhonchi. No intercostal retractions. HEART: Regular rate and rhythm. No murmur. ABDOMEN: Soft. Less distended post paracentesis of 4.1 L removed. Large ventral hernia noted bowel sounds are present. No masses. No tenderness. EXTREMITIES: No pedal edema. No calf tenderness. NEUROLOGICAL: Patient is awake, alert and oriented x3. Cranial nerves 2 through 12 are grossly intact. Please refer to medication reconciliation sheet for a list of medications. The impression and plan of care has been dictated by Laisha Hoyt, Nurse Practitioner as directed. Dr. Josie MD I have performed a history and examination and MDM of this patient, discussed the same with the dictator, and agree with the dictator's assessment and plan as written ,documented as a scribe. Based on total visit time, I have performed more than 50% of the visit. Patient Condition at Discharge: Stable Plan - Discharge Summary Discharge Rx Participant: No New Discharge Prescriptions: New Spironolactone [Aldactone] 50 mg PO DAILY #60 tablet Furosemide [Lasix] 40 mg PO DAILY #30 tablet Changed Propranolol [Inderal] 10 mg PO TID #90 tab Discharge Medication List Furosemide [Lasix] 40 mg PO DAILY #30 tablet 03/24/24 [Rx] Propranolol [Inderal] 10 mg PO TID #90 tab 03/24/24 [Rx] Spironolactone [Aldactone] 50 mg PO DAILY #60 tablet 03/24/24 [Rx] Follow up Appointment(s)/Referral(s): Hunter Singer MD [Primary Care Provider] - 1-2 days Destini Lacne MD [STAFF PHYSICIAN] - 1 Week Lisa Fernando MD [STAFF PHYSICIAN] - 3 Weeks (as scheduled in april) Ambulatory/Diagnostic Orders: Comprehensive Metabolic Panel [LAB.AMB] Time Frame: 3 Days, Location: None Selected Patient Instructions/Handouts: Ascites (ED), Abdominal Pain (ED), Paracentesis (GEN) Activity/Diet/Wound Care/Special Instructions: Activity limited until follow-up Follow-up with primary care provider Follow-up with GI Dr. Lance outpatient Follow-up with general surgery outpatient as scheduled for your hernia Avoid drinking alcohol Discharge Disposition: HOME SELF-CARE
== END 2024-03-24 16:10 | disposition home or self-care (01) ==
LOC: EC 18:25 → 6NMEDSUR 21:32
PROVIDERS: ADMIT Hospitalist; ATTEND Hospitalist
DX: K70.31 Alcoholic cirrhosis of liver with ascites (principal); K43.9 Ventral hernia without obstruction or gangrene; F10.20 Alcohol dependence, uncomplicated; Y90.4 Blood alcohol level of 80-99 mg/100 ml; T50.916A Underdosing of multiple unspecified drugs, medicaments and biological substances, initial encounter; Z91.128 Patient's intentional underdosing of medication regimen for other reason; I10 Essential (primary) hypertension; E78.5 Hyperlipidemia, unspecified; D69.6 Thrombocytopenia, unspecified; G89.29 Other chronic pain; M54.50 Low back pain, unspecified; F17.210 Nicotine dependence, cigarettes, uncomplicated; F31.9 Bipolar disorder, unspecified; F20.9 Schizophrenia, unspecified; E66.9 Obesity, unspecified; Z68.25 Body mass index [BMI] 25.0-25.9, adult; F41.9 Anxiety disorder, unspecified; Z79.899 Other long term (current) drug therapy; Z98.890 Other specified postprocedural states
CPT/HCPCS: 96376; 96375; 96374; 99285; 36415; 80053; 85025; 85610; 85730; 80320; 49083; 74176; G0378 ×2; J2270 ×2; J2470

== ENCOUNTER 2024-07-06 10:05 | Observation (INO) | payer MEDICARE, OTHER ==
[2024-07-06] MEDS: HYDROmorphone 1 MG/ML 1 ML SYRINGE IVP STA (10:35)
[2024-07-06 10:48] LABS: Anisocytosis Slight; Basophils % (A) 1 %; Eosinophils % (A) 1 %; HCT 33.4 % (39.0-53.0); HGB 10.3 gm/dL (13.0-17.5); Hypochromasia Moderate; Lymphocytes # (A) 0.3 k/uL (1.0-4.8); Lymphocytes % (A) 12 %; MCH 23.7 pg (25.0-35.0); MCHC 30.8 g/dL (31.0-37.0); MCV 77.2 fL (80.0-100.0); Mean Platelet Volume 9.2; Microcytosis Moderate; Monocytes # (A) 0.2 k/uL (0-1.0); Monocytes % (A) 8 %; Neutrophils # (A) 1.6 k/uL (1.3-7.7); Neutrophils % (A) 77 %; RBC 4.32 m/uL (4.30-5.90); RDW 19.6 % (11.5-15.5); WBC 2.1 k/uL (3.8-10.6)
--- NOTE | 2024-07-06 11:07 | ED ---
Abdominal Pain HPI - General Chief Complaint: Abdominal Pain Stated Complaint: abd mass Time Seen by Provider: 07/06/24 10:08 Source: patient, EMS, RN notes reviewed Mode of arrival: EMS Limitations: no limitations - History of Present Illness Initial Comments: This is a 63-year-old male who presents to the emergency department for abdominal pain. Patient reports increasing abdominal pain over the last week. He has a history of an abdominal hernia that was previously repaired as well as alcoholic cirrhosis and ascites. He had paracentesis in March of this year at this facility. He has occasional nausea associated with this pain. Denies any vomiting. Denies any chest pain or shortness of breath. Patient is homeless and states that he called EMS from a gas station. MD Complaint: abdominal pain - Related Data Home Medications Medication Instructions Recorded Confirmed No Known Home Medications 07/06/24 07/06/24 Allergies Allergy/AdvReac Type Severity Reaction Status Date / Time No Known Allergies Allergy Verified 07/06/24 11:59 Review of Systems ROS Statement: Those systems with pertinent positive or pertinent negative responses have been documented in the HPI. ROS Other: All systems not noted in ROS Statement are negative. Past Medical History Past Medical History: Hyperlipidemia, Hypertension, Liver Disease Additional Past Medical History / Comment(s): Liver cirrhosis, ascities with prior paracentesises, lower GI bleed, chronic thrombocytopenia, chronic lower back pain, multi large volune paracentesis. History of Any Multi-Drug Resistant Organisms: None Reported Past Surgical History: Hernia Repair Additional Past Surgical History / Comment(s): multiple paracentesis Past Anesthesia/Blood Transfusion Reactions: No Reported Reaction Past Psychological History: Anxiety, Bipolar, Depression, Schizophrenia Smoking Status: Current every day smoker Past Alcohol Use History: Occasional Past Drug Use History: Marijuana - Past Family History Mother Family Medical History: Congestive Heart Failure (CHF), Myocardial Infarction ([place]) Additional Family Medical History / Comment(s): Mother of a [place] at the age o f 56yrs. Father Family Medical History: Diabetes Mellitus Additional Family Medical History / Comment(s): Father at the age of 81 yrs of "natural causes" General Exam Limitations: no limitations General appearance: alert, in no apparent distress Head exam: Present: atraumatic, normocephalic, normal inspection Respiratory exam: Present: normal lung sounds bilaterally. Absent: respiratory distress, wheezes, rales, rhonchi, stridor Cardiovascular Exam: Present: regular rate, normal rhythm, normal heart sounds. Absent: systolic murmur, diastolic murmur, rubs, gallop, clicks GI/Abdominal exam: Present: soft, distended, tenderness (diffuse), normal bowel sounds Neurological exam: Present: alert, oriented X3, CN II-XII intact Psychiatric exam: Present: normal affect, normal mood Skin exam: Present: warm, dry, intact, normal color. Absent: rash Course Vital Signs 07/06/24 07/06/24 07/06/24 10:07 11:25 13:13 Temperature 98.3 F Pulse Rate 83 73 66 Respiratory 19 18 18 Rate Blood Pressure 138/73 126/69 149/94 O2 Sat by Pulse 98 98 98 Oximetry Medical Decision Making - Medical Decision Making This is a 63-year-old male who presents to the emergency department for a bdominal pain. Was pt. sent in by a medical professional or institution? @ -No Did you speak to anyone other than the patient for history? @ -No Did you review nursing and triage notes? @ -Yes, and I agree, it is accurate with regards to the patient's symptoms. Were old charts reviewed? @ -No Differential Diagnosis? @ -Differential Abdominal Pain Men: Appendicitis, cholecystitis, diverticulosis, ischemic bowel, pancreatitis, hepatitis, UTI, gastroenteritis, AAA, incarcerated hernia, bowel obstruction, constipation, inflammatory bowel, hepatitis, peptic ulcer disease, splenic infarction, perforated viscus, testicular torsion, this is not meant to be an all-inclusive list EKG interpreted by me (3pts min.)? @ -EKG interpreted by me demonstrating the following: Sinus rhythm. Ventricular rate 80 bpm, SD interval 132 ms, QRS duration 117 ms, QTc 438 ms. X-rays interpreted by me (1pt min.)? @ -Not obtained CT interpreted by me (1pt min.)? @ -CT scan of the abdomen and pelvis obtained. My interpretation identifies ascites. U/S interpreted by me (1pt. min.)? @ -Not obtained What testing was considered but not performed? (CT, X-rays, U/S, labs)? Why? @ -None What meds were considered but not given? Why? @ -None Did you discuss the management of the patient with other professionals? @ -Yes, Dr. Scruggs, who accepts the patient for admission. Did you reconcile home meds? @ -Yes Was smoking cessation discussed for >3mins.? @ -No Was critical care preformed (if so, how long)? @ -No Were there social determinants of health that impacted care today? How? (Homelessness, low income, unemployed, alcoholism, drug addiction, transportation, low edu. Level, literacy, decrease access to med. care, assisted, rehab)? @ -Homelessness, making it difficult for him to access healthcare and have appropriate follow-up. Alcoholism, contributing to the cirrhosis and ascites. Was there de-escalation of care discussed even if they declined? (Discuss DNR or withdrawal of care, Hospice)? @ -No What co-morbidities impacted this encounter? (DM, HTN, Smoking, COPD, CAD, Cancer, CVA, Hep., AIDS, mental health diagnosis, sleep apnea, morbid obesity)? @ -Cirrhosis, alcoholism Was patient admitted / discharged? @ -Admitted. Lab work demonstrates leukopenia with a white blood cell count of 2.1. Lactic acid elevated at 2.8. Bilirubin 2.[address] scan of the abdomen and pelvis demonstrates hepatic cirrhosis with portal hypertension including varices with a moderate to large amount of ascites. There is redemonstration of the large abdominal wall hernia containing ascites, mesenteric vessels, and small bowel. There is no evidence for obstruction. Findings reviewed with the patient. He was admitted to medicine for paracentesis related to the ascites. Consult placed for IR. Case discussed with ED attending Dr. Dorman. Undiagnosed new problem with uncertain prognosis? @ -None Drug Therapy requiring intensive monitoring for toxicity (Heparin, Nitro, Insulin, Cardizem)? @ -None Were any procedures done? @ -None Diagnosis/symptom? @ -Abdominal pain, ascites Acute, or Chronic, or Acute on Chronic? @ -Acute Uncomplicated (without systemic symptoms) or Complicated (systemic symptoms)? @ -Uncomplicated Side effects of treatment? @ -None Exacerbation, Progression, or Severe Exacerbation] @ -Not applicable Poses a threat to life or bodily function? @ -Yes, pain is limiting his function. - Lab Data Result diagrams: 07/06/24 10:26 07/06/24 10:26 Lab Results 07/06/24 07/06/24 07/06/24 Range/Units 10:26 10:26 10:26 WBC 2.1 L (3.8-10.6) k/uL RBC 4.32 (4.30-5.90) m/uL Hgb 10.3 L (13.0-17.5) gm/dL Hct 33.4 L (39.0-53.0) % MCV 77.2 L (80.0-100.0) fL MCH 23.7 L (25.0-35.0) pg MCHC 30.8 L (31.0-37.0) g/dL RDW 19.6 H (11.5-15.5) % Plt Count 67 L (150-450) k/uL MPV 9.2 Neutrophils % 77 % Lymphocytes % 12 % Monocytes % 8 % Eosinophils % 1 % Basophils % 1 % Neutrophils # 1.6 (1.3-7.7) k/uL Lymphocytes # 0.3 L (1.0-4.8) k/uL Monocytes # 0.2 (0-1.0) k/uL Eosinophils # 0.0 (0-0.7) k/uL Basophils # 0.0 (0-0.2) k/uL Manual Slide Review Performed Hypochromasia Moderate Anisocytosis Slight Microcytosis Moderate Sodium 131 L (137-145) mmol/L Potassium 3.7 (3.5-5.1) mmol/L Chloride 103 (98-107) mmol/L Carbon Dioxide 21 L (22-30) mmol/L Anion Gap 7 mmol/L BUN 10 (9-20) mg/dL Creatinine 0.64 L (0.66-1.25) mg/dL Est GFR (CKD-EPI)AfAm >90 (>60 ml/min/1.73 sqM) Est GFR (CKD-EPI)NonAf >90 (>60 ml/min/1.73 sqM) Glucose 131 H (74-99) mg/dL Lactic Ac Sepsis Rflx Plasma Lactic Acid José 2.8 H* (0.7-2.0) mmol/L Calcium 8.0 L (8.4-10.2) mg/dL Total Bilirubin 2.9 H (0.2-1.3) mg/dL AST 60 H (17-59) U/L ALT 27 (4-49) U/L Alkaline Phosphatase 91 (38-126) U/L Ammonia 47 H (<30) umol/L Total Protein 7.4 (6.3-8.2) g/dL Albumin 3.4 L (3.5-5.0) g/dL Amylase 71 (30-110) U/L Lipase 277 (23-300) U/L Urine Color Urine Appearance (Clear) Urine pH (5.0-8.0) Ur Specific Jenkins (1.001-1.035) Urine Protein (Negative) Urine Glucose (UA) (Negative) Urine Ketones (Negative) Urine Blood (Negative) Urine Nitrite (Negative) Urine Bilirubin (Negative) Urine Urobilinogen (<2.0) mg/dL Ur Leukocyte Esterase (Negative) Serum Alcohol mg/dL 07/06/24 07/06/24 07/06/24 Range/Units 11:00 11:22 11:24 WBC (3.8-10.6) k/uL RBC (4.30-5.90) m/uL Hgb (13.0-17.5) gm/dL Hct (39.0-53.0) % MCV (80.0-100.0) fL MCH (25.0-35.0) pg MCHC (31.0-37.0) g/dL RDW (11.5-15.5) % Plt Count (150-450) k/uL MPV Neutrophils % % Lymphocytes % % Monocytes % % Eosinophils % % Basophils % % Neutrophils # (1.3-7.7) k/uL Lymphocytes # (1.0-4.8) k/uL Monocytes # (0-1.0) k/uL Eosinophils # (0-0.7) k/uL Basophils # (0-0.2) k/uL Manual Slide Review Hypochromasia Anisocytosis Microcytosis Sodium (137-145) mmol/L Potassium (3.5-5.1) mmol/L Chloride (98-107) mmol/L Carbon Dioxide (22-30) mmol/L Anion Gap mmol/L BUN (9-20) mg/dL Creatinine (0.66-1.25) mg/dL Est GFR (CKD-EPI)AfAm (>60 ml/min/1.73 sqM) Est GFR (CKD-EPI)NonAf (>60 ml/min/1.73 sqM) Glucose (74-99) mg/dL Lactic Ac Sepsis Rflx Y Plasma Lactic Acid José (0.7-2.0) mmol/L Calcium (8.4-10.2) mg/dL Total Bilirubin (0.2-1.3) mg/dL AST (17-59) U/L ALT (4-49) U/L Alkaline Phosphatase (38-126) U/L Ammonia (<30) umol/L Total Protein (6.3-8.2) g/dL Albumin (3.5-5.0) g/dL Amylase (30-110) U/L Lipase (23-300) U/L Urine Color Yellow Urine Appearance Clear (Clear) Urine pH 6.5 (5.0-8.0) Ur Specific Jenkins 1.043 H (1.001-1.035) Urine Protein Trace H (Negative) Urine Glucose (UA) Negative (Negative) Urine Ketones Negative (Negative) Urine Blood Negative (Negative) Urine Nitrite Negative (Negative) Urine Bilirubin Negative (Negative) Urine Urobilinogen 4.0 (<2.0) mg/dL Ur Leukocyte Esterase Negative (Negative) Serum Alcohol <10 mg/dL - Radiology Data Radiology results: report reviewed, image reviewed Disposition Clinical Impression: Ascites, Abdominal pain Disposition: ADMITTED IP TO THIS HOSP
[2024-07-06 11:09] LABS: Platelet Count 67 k/uL (150-450)
[2024-07-06 11:22] LABS: Lactic Acid, Venous 2.8 mmol/L (0.7-2.0)
[2024-07-06 11:27] LABS: ALT 27 U/L (4-49); AST 60 U/L (17-59); African American GFR (CKD) >90 (>60 ml/min/1.73 sqM); Albumin 3.4 g/dL (3.5-5.0); Alkaline Phosphatase 91 U/L (38-126); Amylase 71 U/L (30-110); Anion Gap 7 mmol/L; Blood Urea Nitrogen 10 mg/dL (9-20); Carbon Dioxide 21 mmol/L (22-30); Chloride 103 mmol/L (98-107); Glucose 131 mg/dL (74-99); Lipase 277 U/L (23-300); Non-African American GFR(CKD) >90 (>60 ml/min/1.73 sqM); Potassium 3.7 mmol/L (3.5-5.1); Sodium 131 mmol/L (137-145); Total Bilirubin 2.9 mg/dL (0.2-1.3); Total Protein 7.4 g/dL (6.3-8.2)
[2024-07-06] MEDS: SODIUM CHLORIDE 0.9% 500 ML 500 ML IV STA (11:35)
--- NOTE | 2024-07-06 12:19 | CT ---
EXAMINATION TYPE: CT abdomen pelvis w con CT DLP: 1090.1 mGycm, Automated exposure control for dose reduction was used. DATE OF EXAM: 07/06/2024 11:52 AM COMPARISON: CT abdomen pelvis 03/23/2024, 10/18/2021 CLINICAL INDICATION:Male, 63 years old with history of abdominal pain, acute, nonlocalized; Abdominal pain, acute, nonlocalized TECHNIQUE: Standard CT of the abdomen and pelvis following the administration of 100 cc of Isovue 3 00 IV contrast material. Coronal and sagittal reformats were performed. FINDINGS: LOWER CHEST: Unremarkable ABDOMEN LIVER: Nodular contour to the liver with cirrhotic morphology. Diffuse low-attenuation. No focal enha ncing lesions identified. Portal vein, SMV, and splenic vein are patent. GALLBLADDER AND BILE DUCTS: Cholelithiasis present. No biliary duct dilatation. PANCREAS: Unremarkable. SPLEEN: Mildly enlarged measuring up to 14.6 cm. Stable peripheral low density regional redemonstrate d which may represent a cyst, hemangioma or infarct given wedge-shaped appearance. ADRENAL GLANDS: Poor visualization of left kidney due to streak artifact from embolization coils. The right adrenal gland is unremarkable. KIDNEYS AND URETERS: No evidence of hydronephrosis or renal calculus. The kidneys enhance symmetrical ly. Contrast is demonstrated within both collecting systems on the delayed phase. PELVIS BLADDER: Incompletely distended but grossly unremarkable. REPRODUCTIVE: Coarse calcifications of the prostate gland are identified. ABDOMEN & PELVIS STOMACH AND BOWEL: No evidence of bowel obstruction. No focal wall thickening or surrounding inflamma tory changes identified. The appendix is not definitively visualized. PERITONEUM: No evidence of pneumoperitoneum. Moderate to large amount of ascites throughout the abdom en and pelvis. VASCULATURE: No evidence of aortic aneurysm. Moderate atherosclerotic calcification of the aorta and its branches. Embolization coils are seen within the left upper quadrant varices again. Paraesophagea l varices. Recanalization of the umbilical vein. Additional abdominal varices are seen. MUSCULOSKELETAL: Moderate disc degeneration changes are present within the lower lumbar spine. LYMPH NODES: No evidence for lymphadenopathy. SOFT TISSUE/ABDOMINAL WALL: Abdominal wall hernia containing nonobstructive small bowel and ascites w ith mesenteric vessels. The defect measures 4.6 x 4.1 cm in TV by CC dimensions. IMPRESSION: 1. Hepatic cirrhosis with portal hypertension including varices, moderate to large amount of ascites, and mildly enlarged spleen. 2. Redemonstration of large abdominal wall hernia containing ascites, mesenteric vessels, and small b owel. No evidence for obstruction. 3. Cholelithiasis. [facility], , 07/06/2024 12:17 PM
[2024-07-06 12:20] LABS: Appearance,Urine Clear (Clear); Bilirubin,Urine Negative (Negative); Blood,Urine Negative (Negative); Color,Urine Yellow; Glucose,Urine (UA) Negative (Negative); Ketones,Urine Negative (Negative); Leukocyte Esterase,Urine Negative (Negative); Nitrite,Urine Negative (Negative); PH, Urine 6.5 (5.0-8.0); Protein,Urine Trace (Negative); Specific Gravity,Urine 1.043 (1.001-1.035)
[2024-07-06] MEDS ORDERED: HYDROmorphone 2 MG/ML 1 ML SYRINGE IVP PRN (12:31)
[2024-07-06] MEDS ORDERED: ONDANSETRON 4 MG/2 ML VIAL IVP PRN (12:31)
[2024-07-06] MEDS ORDERED: NALOXONE 0.4 MG/ML 1 ML VIAL IV PRN (12:31)
[2024-07-06] MEDS ORDERED: HYDROmorphone 0.5 MG/0.5 ML SYRINGE IVP PRN (12:31)
[2024-07-06] MEDS ORDERED: ACETAMINOPHEN TAB 325 MG TAB PO PRN (12:31)
[2024-07-06 13:39] LABS: INR 1.4 (<1.2); Prothrombin Time 14.6 sec (10.0-12.5)
--- NOTE | 2024-07-06 15:25 | US ---
EXAMINATION TYPE: US paracentesis abd w/image DATE OF EXAM: 07/06/2024 2:50 PM COMPARISON: None. Previous Paracentesis CLINICAL INDICATION: Male, 63 years old with history of see IR consult: ascites; , ascites TECHNIQUE/FINDINGS: The procedure was discussed with the patient. The risks, complications, benefits, and alternatives we re discussed and any questions were answered. Informed consent was obtained. The patient was placed s upine on the ultrasound table and prepped and draped in the usual sterile fashion. All elements of maximal barrier technique were utilized. Under ultrasound guidance, access into the right lower quadrant was obtained, via the paracentesis catheter system and direct ultrasound guidanc e. Approximately 3.3 liters of serous blood-tinged fluid was removed. The patient was stable throughout the procedure and remained stable upon discharge from Department of Radiology. IMPRESSION: Successful paracentesis under ultrasound guidance. [facility], , 07/06/2024 3:23 PM
[2024-07-06] MEDS: traMADol 50 MG TAB PO PRN (20:42)
[2024-07-06] MEDS: NICOTINE 21MG/24HR PATCH TRANSDERM SCH (20:43)
--- NOTE | 2024-07-07 00:04 | P.HPIM ---
History of Present Illness H&P Date: 07/06/24 Chief Complaint: Abdominal pain Patient is a 63-year-old male with a past medical history of hypertension, hyperlipidemia, liver cirrhosis with prior paracentesis in March 2024, alcohol abuse chronic back pain and chronic thrombocytopenia and anxiety/depression/schizophrenia and currently everyday smoker and alcohol use presents to ER with complaints of abdominal pain. Patient states that he has been having increased abdominal and pain over the past 1 week. Denied any fever or chills. No cough or sputum production. Patient is currently homeless. Laboratory data showed WBC 2.1 hemoglobin 10.3 and platelets 67 MCV 77.2 Sodium 131 potassium 3.7 chloride 103 bicarb is 21 BUN 10 and creatinine 0.64 and blood sugar 131 and lactic acid 2.8 calcium 8.0 and total bili 2.9 AST 60 ALT 27 and alk phos 91. Ammonia 47 Review of Systems Constitutional: Patient denies any fever or chills . No generalized weakness or weight loss. Abdomen: Patient denied nausea vomiting and diarrhea and abdominal pain. Cardiovascular: Patient denies any chest pain or short of breath no palpitations. Respiratory: patient denied any cough or sputum production. No shortness of breath Neurologic: Patient denied any numbness or tingling. no headache. Musculoskeletal: Patient denies any complaints of joint swelling or deformity. Skin: Negative Psychiatric: Negative Endocrine: No heat or cold intolerance. No recent weight gain. Genitourinary: No dysuria or hematuria. All other 14 point ROS negative except the above Past Medical History Past Medical History: Hyperlipidemia, Hypertension, Liver Disease Additional Past Medical History / Comment(s): Liver cirrhosis, ascities with prior paracentesises, lower GI bleed, chronic thrombocytopenia, chronic lower back pain, multi large volune paracentesis. History of Any Multi-Drug Resistant Organisms: None Reported Past Surgical History: Hernia Repair Additional Past Surgical History / Comment(s): multiple paracentesis Past Anesthesia/Blood Transfusion Reactions: No Reported Reaction Past Psychological History: Anxiety, Bipolar, Depression, Schizophrenia Additional Psychological History / Comment(s): Pt resides with a friend. He uses no assistive devices. He does not drive, he gets rides thru his medical insurance. Smoking Status: Current every day smoker Past Alcohol Use History: Occasional Additional Past Alcohol Use History / Comment(s): Patient states he does not drink more than 14 drinks per week. Past Drug Use History: Marijuana - Past Family History Mother Family Medical History: Congestive Heart Failure (CHF), Myocardial Infarction (MA) Additional Family Medical History / Comment(s): Mother of a MA at the age of 56yrs. Father Family Medical History: Diabetes Mellitus Additional Family Medical History / Comment(s): Father at the age of 81 yrs of "natural causes" Medications and Allergies Home Medications Medication Instructions Recorded Confirmed Type No Known Home Medications 07/06/24 07/06/24 History Allergies Allergy/AdvReac Type Severity Reaction Status Date / Time No Known Allergies Allergy Verified 07/06/24 11:59 Physical Exam Vitals: Vital Signs Temp Pulse Pulse Pulse Resp BP BP 07/06/24 20:12 98.1 F 78 17 151/61 07/06/24 15:29 98.1 F 75 18 150/69 07/06/24 15:12 62 12 138/74 07/06/24 15:00 59 L 12 127/64 07/06/24 14:46 86 12 133/75 07/06/24 14:17 64 12 148/77 07/06/24 14:06 98 F 80 18 138/78 07/06/24 13:13 66 18 149/94 07/06/24 11:25 73 18 126/69 07/06/24 10:07 98.3 F 83 19 138/73 Pulse Ox 07/06/24 20:12 100 07/06/24 15:29 99 07/06/24 15:12 98 07/06/24 15:00 98 07/06/24 14:46 100 07/06/24 14:17 99 07/06/24 14:06 96 07/06/24 13:13 98 07/06/24 11:25 98 07/06/24 10:07 98 Intake and Output 07/06/24 07/06/24 07/06/24 06:59 14:59 22:59 Intake Total 118 Balance 118 Intake: Oral 118 Other: Weight 72.575 kg 72.575 kg PHYSICAL EXAMINATION: Patient is lying in the bed comfortably, no acute distress, awake alert and oriented.. HEENT: Normocephalic. Neck is supple. Pupils reactive. Nostrils clear. Oral cavity is moist. Neck reveals no JVD, carotid bruits, or thyromegaly. CHEST EXAMINATION: Trachea is central. Symmetrical expansion. Lung posadas clear to auscultation and percussion. CARDIAC: Normal S1, S2 with no gallops. No murmurs ABDOMEN: Soft. Distended. Right para Umbilical hernia. No organomegaly. No abdominal bruits. Extremities: reveal no edema. No clubbing or cyanosis Neurologically awake, alert, oriented x3 with well-coordinated movements. No focal deficits noted Skin: No rash or skin lesions. Psychiatric: Coperative. Nonsuicidal Musculoskeletal: No joint swelling or deformity. Normal range of motion. Results CBC & Chem 7: 07/07/24 04:16 07/07/24 04:16 Labs: Abnormal Lab Results - Last 24 Hours (Table) 07/06/24 07/06/24 07/06/24 Range/Units 10:26 10:26 10:26 WBC 2.1 L (3.8-10.6) k/uL Hgb 10.3 L (13.0-17.5) gm/dL Hct 33.4 L (39.0-53.0) % MCV 77.2 L (80.0-100.0) fL MCH 23.7 L (25.0-35.0) pg MCHC 30.8 L (31.0-37.0) g/dL RDW 19.6 H (11.5-15.5) % Plt Count 67 L (150-450) k/uL Lymphocytes # 0.3 L (1.0-4.8) k/uL PT (10.0-12.5) sec INR (<1.2) Sodium 131 L (137-145) mmol/L Carbon Dioxide 21 L (22-30) mmol/L Creatinine 0.64 L (0.66-1.25) mg/dL Glucose 131 H (74-99) mg/dL Plasma Lactic Acid José 2.8 H* (0.7-2.0) mmol/L Calcium 8.0 L (8.4-10.2) mg/dL Total Bilirubin 2.9 H (0.2-1.3) mg/dL AST 60 H (17-59) U/L Ammonia 47 H (<30) umol/L Albumin 3.4 L (3.5-5.0) g/dL Ur Specific Hewitt (1.001-1.035) Urine Protein (Negative) 11/05/24 11/05/24 Range/Units 11:00 12:54 WBC (3.8-10.6) k/uL Hgb (13.0-17.5) gm/dL Hct (39.0-53.0) % MCV (80.0-100.0) fL MCH (25.0-35.0) pg MCHC (31.0-37.0) g/dL RDW (11.5-15.5) % Plt Count (150-450) k/uL Lymphocytes # (1.0-4.8) k/uL PT 14.6 H (10.0-12.5) sec INR 1.4 H (<1.2) Sodium (137-145) mmol/L Carbon Dioxide (22-30) mmol/L Creatinine (0.66-1.25) mg/dL Glucose (74-99) mg/dL Plasma Lactic Acid José (0.7-2.0) mmol/L Calcium (8.4-10.2) mg/dL Total Bilirubin (0.2-1.3) mg/dL AST (17-59) U/L Ammonia (<30) umol/L Albumin (3.5-5.0) g/dL Ur Specific Hewitt 1.043 H (1.001-1.035) Urine Protein Trace H (Negative) Thrombosis Risk Factor Assmnt - Choose All That Apply Any of the Below Risk Factors Present?: Yes Other Risk Factors: Yes Each Risk Factor Represents 2 Points: Age 61-74 years Other congenital or acquired thrombophilia - If yes, enter type in comment: No Thrombosis Risk Factor Assessment Total Risk Factor Score: 2 Thrombosis Risk Factor Assessment Level: Low Risk Assessment and Plan Assessment: Abdominal pain and distention with ascites Alcoholic liver cirrhosis with prior history of paracentesis Hypertension Hyperlipidemia Chronic back pain Chronic thrombocytopenia due to alcohol abuse Alcohol use disorder Ongoing nicotine addiction DVT prophylaxis with SCDs due to thrombocytopenia Plan: Patient will be continued on thiamine and multivitamins and monitored withdrawal symptoms. Ultrasound-guided paracentesis was ordered. Follow-up cell count differential, fluid cultures and cytology. Patient has been counseled extensively for alcohol abstinence and smoking cessation. Follow-up closely. Prognosis guarded. Time with Patient: Greater than 30
[2024-07-07 04:47] LABS: Appearance,BF Bloody (Clear)
[2024-07-07 05:51] LABS: T. Protein, Body Fluid Source Ascites; Total Protein, Body Fluid 1330 mg/dL
[2024-07-07 05:55] LABS: Albumin, Fluid Source Ascities
[2024-07-07] MEDS: PANTOPRAZOLE 40 MG/10 ML VIAL IV SCH (08:26)
[2024-07-07 08:51] LABS: % Iron Saturation 5.03 (15.00-50.00); ALT 24 U/L (10-49); AST 50 U/L (14-35); Albumin 3.2 g/dL (3.8-4.9); Albumin/Globulin Ratio 0.89 Ratio (1.60-3.17); Alkaline Phosphatase 117 U/L (41-126); BUN/Creat Ratio 14.43 Ratio (12.00-20.00); Blood Urea Nitrogen 10.1 mg/dL (9.0-27.0); Carbon Dioxide 21.7 mmol/L (21.6-31.8); Chloride 102 mmol/L (96-109); Globulin 3.6 g/dL (1.6-3.3); Glucose 105 mg/dL (70-110); Iron 20 UG/DL (65-175); Potassium 4.2 mmol/L (3.5-5.5); Sodium 133 mmol/L (135-145); Total Bilirubin 1.3 mg/dL (0.3-1.2); Total Iron Binding Capacity 398 UG/DL (228-460); Total Protein 6.8 g/dL (6.2-8.2)
[2024-07-07 09:31] LABS: Basophils # (A) 0.03 X 10*3/uL (0.00-0.10); Basophils % (A) 1.3 %; Eosinophils % (A) 4.3 %; HCT 32.8 % (39.6-50.0); HGB 10.1 g/dL (13.0-17.0); Immature Platelet Fraction 5.1 % (1.1-6.1); Lymphocytes # (A) 0.56 X 10*3/uL (0.90-5.00); Lymphocytes % (A) 24.2 %; MCH 23.3 pg (27.0-32.0); MCHC 30.8 g/dL (32.0-37.0); MCV 75.8 FL (80.0-97.0); Mean Platelet Volume 9.1 FL (9.5-12.2); Monocytes # (A) 0.43 X 10*3/uL (0.20-1.00); Monocytes % (A) 18.6 %; NRBC Per 100 WBC 0 X 10*3/uL (0.00-0.01); Neutrophils # (A) 1.18 X 10*3/uL (1.80-7.70); Neutrophils % (A) 51.2 %; Platelet Count 69 X 10*3/uL (140-440); RBC 4.33 X 10*6/uL (4.40-5.60); RDW 21.1 % (11.5-14.5); WBC 2.31 X 10*3/uL (4.50-10.00)
[2024-07-07] MEDS: SODIUM FERRIC GLUCONAT-SUCROSE 125 MG in SODIUM CHLORIDE 0.9% 100 ML IVPB ONE (10:05)
[2024-07-07] MEDS: THIAMINE 100 MG TAB PO SCH (15:35)
[2024-07-07] MEDS: FOLIC ACID 1 MG TAB PO SCH (15:35)
[2024-07-07] MEDS: LACTULOSE 20 GM/30 ML CUP PO SCH (15:35)
--- NOTE | 2024-07-07 21:16 | P.PN ---
Subjective Progress Note Date: 07/07/24 Patient is a 63-year-old male with a past medical history of hypertension, hyperlipidemia, liver cirrhosis with prior paracentesis in March 2024, alcohol abuse chronic back pain and chronic thrombocytopenia and anxiety/depression/schizophrenia and currently everyday smoker and alcohol use presents to ER with complaints of abdominal pain. Patient states that he has been having increased abdominal and pain over the past 1 week. Denied any fever or chills. No cough or sputum production. Patient is currently homeless. Laboratory data showed WBC 2.1 hemoglobin 10.3 and platelets 67 MCV 77.2 Sodium 131 potassium 3.7 chloride 103 bicarb is 21 BUN 10 and creatinine 0.64 and blood sugar 131 and lactic acid 2.8 calcium 8.0 and total bili 2.9 AST 60 ALT 27 and alk phos 91. Ammonia 47 07/07/2024 Patient is resting in the bed. Awake alert and oriented x 3. Abdominal pain did improve. No complaints of chest pain or shortness breath. Patient is being monitored for alcohol withdrawal symptoms. He would like to go to [facility]. Otherwise no acute overnight issues. Laboratory data showed WBC 2.3 hemoglobin 10.1 MCV 75.8 and platelets 69 Sodium 133 potassium 4.2 chloride 102 bicarb is 21.7 BUN 10.1 and creatinine 0.7 and blood sugar 105 Iron level 20 and TIBC 398 and transferrin saturation 5.03 and total bilirubin came down to 1.3 today. Acetic fluid analysis showed WBCs 57 with increased RBC count. Preliminary Gram stain showed no organisms. Current medications reviewed. Objective - Vital Signs Vital signs: Vital Signs Temp 98.1 F 07/07/24 19:47 Pulse 62 07/07/24 19:47 Resp 14 07/07/24 19:47 BP 124/64 07/07/24 19:47 Pulse Ox 100 07/07/24 19:47 FiO2 Intake & Output 07/07/24 07/07/24 07/08/24 06:59 18:59 06:59 Intake Total 354 Balance 354 Intake: Oral 354 Other: # Voids 2 1 - Exam PHYSICAL EXAMINATION: Patient is lying in the bed comfortably, no acute distress, awake alert and oriented.. HEENT: Normocephalic. Neck is supple. Pupils reactive. Nostrils clear. Oral cavity is moist. Neck reveals no JVD, carotid bruits, or thyromegaly. CHEST EXAMINATION: Trachea is central. Symmetrical expansion. Lung posadas clear to auscultation and percussion. CARDIAC: Normal S1, S2 with no gallops. No murmurs ABDOMEN: Soft. Mild distention. Right para Umbilical hernia. No organomegaly. No abdominal bruits. Extremities: reveal no edema. No clubbing or cyanosis Neurologically awake, alert, oriented x3 with well-coordinated movements. No focal deficits noted Skin: No rash or skin lesions. Psychiatric: Coperative. Nonsuicidal Musculoskeletal: No joint swelling or deformity. Normal range of motion. - Labs CBC & Chem 7: 07/07/24 04:16 07/07/24 04:16 Labs: Abnormal Lab Results - Last 24 Hours (Table) 07/06/24 07/07/24 07/07/24 Range/Units 14:45 04:16 04:16 WBC 2.31 L (4.50-10.00) X 10*3/uL RBC 4.33 L (4.40-5.60) X 10*6/uL Hgb 10.1 L (13.0-17.0) g/dL Hct 32.8 L (39.6-50.0) % MCV 75.8 L (80.0-97.0) FL MCH 23.3 L (27.0-32.0) pg MCHC 30.8 L (32.0-37.0) g/dL RDW 21.1 H (11.5-14.5) % Plt Count 69 L (140-440) X 10*3/uL MPV 9.1 L (9.5-12.2) FL Neutrophils # 1.18 L (1.80-7.70) X 10*3/uL Lymphocytes # 0.56 L (0.90-5.00) X 10*3/uL Sodium 133 L (135-145) mmol/L Calcium 8.0 L (8.7-10.3) mg/dL Iron 20 L (65-175) UG/DL % Saturation 5.03 L (15.00-50.00) Total Bilirubin 1.3 H (0.3-1.2) mg/dL AST 50 H (14-35) U/L Albumin 3.2 L (3.8-4.9) g/dL Globulin 3.6 H (1.6-3.3) g/dL Albumin/Globulin Ratio 0.89 L (1.60-3.17) Ratio Fluid Appearance Bloody A (Clear) Microbiology - Last 24 Hours (Table) 07/06/24 14:45 Gram Stain - Preliminary Ascites Fluid Assessment and Plan Assessment: Abdominal pain and distention with ascites. Improved now. Status post ultrasound-guided paracentesis. Alcoholic liver cirrhosis with prior history of paracentesis Bicytopenia. Patient has neutropenia and thrombocytopenia Iron deficiency anemia Hypertension Hyperlipidemia Chronic back pain Chronic thrombocytopenia due to alcohol abuse Alcohol use disorder Ongoing nicotine addiction DVT prophylaxis with SCDs due to thrombocytopenia Plan: Patient will be continued on thiamine and multivitamins and monitored withdrawal symptoms. Ultrasound-guided paracentesis was done. Urinalysis is negative for infection. Follow-up culture. Patient will be given IV iron supplementation. Patient has been counseled extensively for alcohol abstinence and smoking cessation. Follow-up closely. Prognosis guarded. Patient is willing to go to [facility] Time with Patient: Greater than 30
[2024-07-08 09:13] LABS: BUN/Creat Ratio 20.67 Ratio (12.00-20.00); Blood Urea Nitrogen 12.4 mg/dL (9.0-27.0); Calcium 7.9 mg/dL (8.7-10.3); Carbon Dioxide 21.7 mmol/L (21.6-31.8); Chloride 104 mmol/L (96-109); Glucose 95 mg/dL (70-110); Potassium 4.1 mmol/L (3.5-5.5); Sodium 134 mmol/L (135-145)
[2024-07-08] MEDS: SODIUM FERRIC GLUCONAT-SUCROSE 125 MG in SODIUM CHLORIDE 0.9% 100 ML IVPB ONE (10:02)
[2024-07-08 12:20] LABS: Basophils # (A) 0.03 X 10*3/uL (0.00-0.10); Basophils % (A) 1.1 %; Elliptocytes 2+; Eosinophils # (A) 0.12 X 10*3/uL (0.04-0.35); Eosinophils % (A) 4.2 %; HCT 31.6 % (39.6-50.0); HGB 9.7 g/dL (13.0-17.0); Immature Platelet Fraction 4.2 % (1.1-6.1); Lymphocytes # (A) 0.54 X 10*3/uL (0.90-5.00); Lymphocytes % (A) 18.9 %; MCHC 30.7 g/dL (32.0-37.0); Mean Platelet Volume 11.3 FL (9.5-12.2); NRBC Per 100 WBC 0 X 10*3/uL (0.00-0.01); Neutrophils # (A) 1.75 X 10*3/uL (1.80-7.70); Neutrophils % (A) 61.4 %; Platelet Count 70 X 10*3/uL (140-440); RBC 4.05 X 10*6/uL (4.40-5.60); RDW 21.2 % (11.5-14.5); WBC 2.85 X 10*3/uL (4.50-10.00)
[2024-07-08 19:39] VITALS: RESP 16
[2024-07-09 07:52] VITALS: BP 133/72; PULSE 48; TEMP 98.2
--- NOTE | 2024-07-09 09:53 | P.PN ---
Subjective Progress Note Date: 07/08/24 Patient is a 63-year-old male with a past medical history of hypertension, hyperlipidemia, liver cirrhosis with prior paracentesis in March 2024, alcohol abuse chronic back pain and chronic thrombocytopenia and anxiety/depression/schizophrenia and currently everyday smoker and alcohol use presents to ER with complaints of abdominal pain. Patient states that he has been having increased abdominal and pain over the past 1 week. Denied any fever or chills. No cough or sputum production. Patient is currently homeless. Laboratory data showed WBC 2.1 hemoglobin 10.3 and platelets 67 MCV 77.2 Sodium 131 potassium 3.7 chloride 103 bicarb is 21 BUN 10 and creatinine 0.64 and blood sugar 131 and lactic acid 2.8 calcium 8.0 and total bili 2.9 AST 60 ALT 27 and alk phos 91. Ammonia 47 07/07/2024 Patient is resting in the bed. Awake alert and oriented x 3. Abdominal pain did improve. No complaints of chest pain or shortness breath. Patient is being monitored for alcohol withdrawal symptoms. He would like to go to [facility] facility. Otherwise no acute overnight issues. Laboratory data showed WBC 2.3 hemoglobin 10.1 MCV 75.8 and platelets 69 Sodium 133 potassium 4.2 chloride 102 bicarb is 21.7 BUN 10.1 and creatinine 0.7 and blood sugar 105 Iron level 20 and TIBC 398 and transferrin saturation 5.03 and total bilirubin came down to 1.3 today. Acetic fluid analysis showed WBCs 57 with increased RBC count. Preliminary Gram stain showed no organisms. Current medications reviewed. 07/08/2024 Patient is seen in follow-up with no acute overnight issues. Patient continues with abdominal discomfort which is chronic and has a chronic hernia that he follows with in the outpatient setting at [facility] and has been instructed multiple admissions to follow-up with them outpatient. Patient also is status post paracentesis and a distention is improved. Patient has been continued on lactulose and also discussed going to [facility] on discharge. Per nursing staff paperwork was faxed and reported it could take up to 72 hours for approval. Patient is stable for discharge although discharge was held due to abdominal pain. Will monitor overnight and discharge planning to [facility] in 24 hours. Review of systems: Constitutional: No reports of fatigue, fever, or chills Cardiovascular: No reports of chest pain or palpitations Respiratory: No reports of shortness of breath or cough GI: No reports of nausea, vomiting, or diarrhea, reports continued abdominal discomfort : No reports of dysuria or retention Neurovascular: No reports of weakness or numbness All medications have been reviewed Physical exam: Gen: This is a 63-year-old male who is awake, alert and oriented x 3, thin build, elderly appearing HEENT: Head is atraumatic, normocephalic. Pupils equal, round. Sclerae is anicteric. NECK: Supple. No JVD. No lymphadenopathy. No thyromegaly. LUNGS: Clear to auscultation. No wheezes or rhonchi. No intercostal retractions. HEART: Regular rate and rhythm. No murmur. ABDOMEN: Soft. Distended although much improved post paracentesis bowel sounds are present. No masses. No tenderness. Significant right umbilical hernia noted that is soft and reproducible EXTREMITIES: No pedal edema. No calf tenderness. NEUROLOGICAL: Patient is awake, alert and oriented x3. Cranial nerves 2 through 12 are grossly intact. Assessment: Abdominal pain and distention with ascites. Improved now. Status post ultrasound-guided paracentesis. Alcoholic liver cirrhosis with prior history of paracentesis Bicytopenia. Patient has neutropenia and thrombocytopenia Iron deficiency anemia Hypertension Hyperlipidemia Chronic back pain Chronic thrombocytopenia due to alcohol abuse Alcohol use disorder Ongoing nicotine addiction DVT prophylaxis with SCDs due to thrombocytopenia Plan: Patient will be continued on thiamine and multivitamins and monitored withdrawal symptoms. Ultrasound-guided paracentesis was done. Urinalysis is negative for infection. Follow-up culture. Patient will be given IV iron supplementation. Patient will continue on oral iron on discharge and recommend GI follow-up along with his surgeon follow-up in the outpatient setting Patient has been counseled extensively for alcohol abstinence and smoking cessation. Patient will be going to [facility]. Patient was discharged and per nursing documentation was faxed and pending for patient to be discharged to [facility] from here. Patient is stable for discharge although does not want to go all the way back to [place] and then have to find a ride again out to [place] at [facility]. Will monitor overnight as patient is reporting continued abdominal pain. Continue lactulose Discharge planning to [facility] in the next 24 hours The impression and plan of care has been dictated by Laisha Hoyt, Nurse Practitioner as directed. Dr. Kael MD I have performed a history and examination and MDM of this patient, discussed the same with the dictator, and agree with the dictator's assessment and plan as written ,documented as a scribe. Based on total visit time, I have performed more than 50% of the visit. Objective - Vital Signs Vital signs: Vital Signs Temp 98.2 F 07/09/24 07:28 Pulse 48 L 07/09/24 07:28 Resp 16 07/09/24 07:28 BP 133/72 07/09/24 07:28 Pulse Ox 98 07/09/24 07:28 FiO2 Intake & Output 07/08/24 07/09/24 07/09/24 18:59 06:59 18:59 Intake Total 354 Balance 354 Intake: Oral 354 Other: Voiding Method Toilet # Voids 1 3 - Labs CBC & Chem 7: 07/08/24 05:10 07/08/24 05:10 Labs: Abnormal Lab Results - Last 24 Hours (Table) 07/08/24 Range/Units 05:10 WBC 2.85 L (4.50-10.00) X 10*3/uL RBC 4.05 L (4.40-5.60) X 10*6/uL Hgb 9.7 L (13.0-17.0) g/dL Hct 31.6 L (39.6-50.0) % MCV 78.0 L (80.0-97.0) FL MCH 24.0 L (27.0-32.0) pg MCHC 30.7 L (32.0-37.0) g/dL RDW 21.2 H (11.5-14.5) % Plt Count 70 L (140-440) X 10*3/uL Neutrophils # 1.75 L (1.80-7.70) X 10*3/uL Lymphocytes # 0.54 L (0.90-5.00) X 10*3/uL Elliptocytes 2+ A Microbiology - Last 24 Hours (Table) 07/06/24 14:45 Anaerobic Culture - Preliminary Ascites Fluid 07/06/24 14:45 Gram Stain - Preliminary Ascites Fluid Body Fluid Culture - Preliminary
--- NOTE | 2024-07-09 09:56 | P.DS ---
Providers Date of admission: 07/06/24 12:28 Expected date of discharge: 07/09/24 Attending physician: Marisol Scruggs Primary care physician: Hunter Singer [facility] Course: Final diagnosis Abdominal pain and distention with ascites. Improved now. Status post ultrasound-guided paracentesis. Alcoholic liver cirrhosis with prior history of paracentesis Bicytopenia. Patient has neutropenia and thrombocytopenia Iron deficiency anemia Hypertension Hyperlipidemia Chronic umbilical hernia follows with general surgery and out of [place] and has been instructed to follow-up outpatient Chronic back pain Chronic thrombocytopenia due to alcohol abuse Alcohol use disorder Ongoing nicotine addiction DVT prophylaxis with SCDs due to thrombocytopenia Discharge disposition Patient is being discharged in a stable condition with guarded prognosis to [facility]. Patient will follow-up with Dr. Singer in the outpatient setting upon discharge. Patient is to continue with lactulose and outpatient follow-up with GI and his general surgeon as scheduled. Total time taken is greater than 35 minutes. Hospital course This is a 63-year-old male who was recently admitted with abdominal pain with distention and ascites status post paracentesis being closely monitored. Patient with significant alcohol liver cirrhosis maintained on CIWA protocol although not requiring any Ativan and patient does not appear to be actively withdrawing. Patient was having some abdominal pain and monitored overnight and will continue current regimen. Patient to follow-up with GI as well as his general surgeon out of [place] as previously instructed regarding his chronic hernia. Patient has been counseled extensively on complete alcohol cessation and is agreeable and wants to go to rehab. Paperwork was faxed to [facility] and patient will need to call to arrange for an intake. Patient is medically stable and will be discharged today. Currently no reports of chest pain, shortness of breath, or palpitations. Patient is afebrile. No reports of nausea or vomiting and patient is tolerating diet. Patient will be discharged home today. Guarded prognosis and high risk for readmissions given patient's noncompliance and continued alcohol use Physical exam: Gen: This is a 63-year-old male who is awake, alert and oriented x 3, well- developed, elderly appearing, thin built, extremely tanned HEENT: Head is atraumatic, normocephalic. Pupils equal, round. Sclerae is anicteric. NECK: Supple. No JVD. No lymphadenopathy. No thyromegaly. LUNGS: Clear to auscultation. No wheezes or rhonchi. No intercostal retractions. HEART: Regular rate and rhythm. No murmur. ABDOMEN: Soft. Distended although soft and nontympanic. Right umbilical hernia noted and reproducible. Bowel sounds are present. No masses. No tenderness. EXTREMITIES: No pedal edema. No calf tenderness. NEUROLOGICAL: Patient is awake, alert and oriented x3. Cranial nerves 2 through 12 are grossly intact. Please refer to medication reconciliation sheet for a list of medications. The impression and plan of care has been dictated by Laisha Hoyt, Nurse Practitioner as directed. Dr. Kale MD I have performed a history and examination and MDM of this patient, discussed the same with the dictator, and agree with the dictator's assessment and plan as written ,documented as a scribe. Based on total visit time, I have performed more than 50% of the visit. Plan - Discharge Summary Discharge Rx Participant: No New Discharge Prescriptions: New Lactulose [Cephulac] 20 gm PO BID #360 ml Folic Acid 1 mg PO DAILY #30 tab Nicotine 21Mg/24Hr Patch [Habitrol] 1 patch TRANSDERM DAILY patch traMADol HCl [Ultram] 50 mg PO QID PRN #12 tab PRN Reason: Pain Thiamine [Vitamin B-1] 100 mg PO DAILY #30 tab Ferrous Sulfate [Feosol] 325 mg PO DAILY #30 tab Acetaminophen Tab [Tylenol] 650 mg PO Q6HR PRN tab PRN Reason: Mild Pain Or Fever > 100.5 Discharge Medication List Acetaminophen Tab [Tylenol] 650 mg PO Q6HR PRN tab 07/08/24 [Rx] Ferrous Sulfate [Feosol] 325 mg PO DAILY #30 tab 07/08/24 [Rx] Folic Acid 1 mg PO DAILY #30 tab 07/08/24 [Rx] Lactulose [Cephulac] 20 gm PO BID #360 ml 07/08/24 [Rx] Nicotine 21Mg/24Hr Patch [Habitrol] 1 patch TRANSDERM DAILY patch 07/08/24 [Rx] Thiamine [Vitamin B-1] 100 mg PO DAILY #30 tab 07/08/24 [Rx] traMADol HCl [Ultram] 50 mg PO QID PRN #12 tab 07/08/24 [Rx] Follow up Appointment(s)/Referral(s): Destini Lance MD [STAFF PHYSICIAN] - 1 Week (left voicemail with office to contact patient to schedule appointment) Hunter Singer MD [Primary Care Provider] - 07/15/24 2:00 pm Activity/Diet/Wound Care/Special Instructions: Patient to follow-up with primary care provider on discharge Follow-up with your surgeon out of [place] regarding your hernia Follow-up GI outpatient Avoid all alcohol use and exposure Strongly recommend going to inpatient alcohol rehab on discharge from here Discharge/Stand Alone Forms: AA Meetings [address] - [facility], AA Meetings [facility], Who Do I Call?, Community Resources, Outpatient Counseling, Inp Substance Abuse Facilities Discharge Disposition: OTHER INSTITUTION NOT DEFINED
== END 2024-07-09 14:24 | disposition other institution (70) ==
LOC: EC 10:05 → 6NMEDSUR 12:28
PROVIDERS: ADMIT Internal Medicine; ATTEND Internal Medicine
DX: K70.31 Alcoholic cirrhosis of liver with ascites (principal); K42.9 Umbilical hernia without obstruction or gangrene; F10.130 Alcohol abuse with withdrawal, uncomplicated; Y90.0 Blood alcohol level of less than 20 mg/100 ml; D69.59 Other secondary thrombocytopenia; D50.9 Iron deficiency anemia, unspecified; D70.9 Neutropenia, unspecified; E78.5 Hyperlipidemia, unspecified; I10 Essential (primary) hypertension; M54.9 Dorsalgia, unspecified; G89.29 Other chronic pain; F20.9 Schizophrenia, unspecified; F31.9 Bipolar disorder, unspecified; F41.9 Anxiety disorder, unspecified; F17.200 Nicotine dependence, unspecified, uncomplicated; Z91.199 Patient's noncompliance with other medical treatment and regimen due to unspecified reason; Z59.00 Homelessness unspecified
CPT/HCPCS: 96376 ×2; 96365; 96375 ×2; 99285; 36415; 93005; 88108; 88305; 80053 ×2; 80048; 82042; 89050; 82140; 82150; 83540; 83550; 83605; 83690; 85025 ×3; 85610; 81003; 80320; 87070; 87205; 87075; 84157; 49083; 74177; G0378 ×4; J2916 ×2; J1171; Q9967; J2470 ×3